=== PATIENT | male | born 1945 | race Caucasian/White ===

== ENCOUNTER → 2016-08-17 | Outpatient (CLI) | payer OTHER, MEDICARE ==
[~2016-08-17] MED LIST: ASPEC81 PO; CHOL100010 PO; FOLI1TAB7 PO; LEVO50TA6 PO; METO25TA56 PO; SIMV20TA2 PO
== END | disposition home or self-care (01) ==
LOC: C.PATHSPEC 11:53
PROVIDERS: ATTEND Dentist Endodontics
DX: K04.7 Periapical abscess without sinus (principal)

== ENCOUNTER 2023-07-20 11:38 | Inpatient (IN) ==
[2023-07-20 12:09] LABS: Basophils # (auto) 0.07 K/uL (0.00-0.20); Basophils % (auto) 0.3 %; Eosinophils % (auto) 0.5 %; Hematocrit (blood only) 39.8 % (42.0-52.0); Hemoglobin 13.5 g/dl (14.0-18.0); Immature Granulocytes # (auto) 0.14 K/uL (0.01-0.20); Immature Granulocytes % (auto) 0.6 %; Lymphocytes # (auto) 2.26 K/uL (1.20-3.40); Lymphocytes % (auto) 10.4 %; Mean Corpuscular Hemoglobin 29.8 pg (25.0-34.0); Mean Corpuscular Hgb Conc 33.9 g/dL (32.0-36.0); Mean Corpuscular Volume 87.9 fL (80.0-100.0); Mean Platelet Volume 10.3 fL (9.4-12.4); Monocytes # (auto) 1.93 K/uL (0.11-0.59); Monocytes % (auto) 8.9 %; Neutrophils # (auto) 17.18 K/uL (1.40-6.50); Neutrophils % (auto) 79.3 %; Platelet Count 173 K/uL (130-400); RDW Coefficient of Variation 12.3 % (11.5-14.5); RDW Standard Deviation 39.9 fL (36.4-46.3); Red Blood Count 4.53 M/uL (4.70-6.10); White Blood Count 21.68 K/ul (4.8-10.8)
[2023-07-20] MEDS ORDERED: CEFEPIME 2,000 MG in SYRINGE 0 ML IV STA (12:25)
--- NOTE | 2023-07-20 12:28 | Emergency Department Note ---
History of Present Illness General Chief complaint: Urinary Symptoms Stated complaint: URINARY SYMPTOMS, REF BY DOC Time Seen by Provider: 07/20/23 12:10 Source: patient, family ( was at the bedside), RN notes reviewed and old records reviewed (Notes from a phone call from the primary care physician about sending the patient over here) Mode of arrival: ambulatory Limitations: no limitations History of Present Illness Maximum Pain Intensity: 3 This patient is a 78-year-old male who comes in after feeling weak and having urinary symptoms. 2 days ago he started with flulike symptoms fever and dysuria. He had frequency of urination with small amounts his started him on Azo yesterday said yesterday evening he was very weak and she was not sure if he get out of the bathtub he may have been a little confused as well. No fall or trauma no back pain no nausea vomiting diarrhea but he has not been drinking much because he just does not feel like it. No abdominal pain. No chest pain or shortness of breath. No blood or melena in his stool. Home Medications Medication Instructions Recorded Confirmed Type Aspirin Enteric Coated (Ecotrin Or 81 mg PO QAM ##0 12/13/09 07/20/23 History Generic *) Metoprolol Tartrate (Lopressor) 25 mg PO QPM ##0 12/13/09 07/20/23 History (Lopressor) CHOLECALCIFEROL (Vitamin D) 5,000 inter.unit PO QPM #0 tabs 04/22/15 07/20/23 History FOLIC ACID (FOLVITE) 1 tab PO QAM 90 days #90 tabs 04/22/15 07/20/23 History amlodipine 2.5 mg tablet 2.5 mg PO DAILY 07/20/23 07/20/23 History coenzyme Q10 75 mg capsule 75 mg PO DAILY 07/20/23 07/20/23 History famotidine 20 mg tablet 20 mg PO DAILY PRN Indigestion 07/20/23 07/20/23 History isosorbide mononitrate 60 mg 60 mg PO QAM 07/20/23 07/20/23 History tablet,extended release 24 hr levothyroxine 75 mcg tablet 75 mcg PO DAILY 07/20/23 07/20/23 History lisinopril 2.5 mg tablet 2.5 mg PO QAM 07/20/23 07/20/23 History metformin 500 mg tablet,extended 500 mg PO QAM 07/20/23 07/20/23 History release 24 hr metoprolol succinate 25 mg 12.5 mg PO QAM 07/20/23 07/20/23 History tablet,extended release 24 hr rosuvastatin 20 mg tablet 20 mg PO DAILY 07/20/23 07/20/23 History Allergies Allergy/AdvReac Type Severity Reaction Status Date / Time No Known Allergies Allergy Unverified 09/03/19 10:06 Past Med/Surg History Medical History Cancer of the skin, basal cell Diabetes Heart disease Surgical History History of coronary artery bypass graft [facility] 03/02/20 CABG X4 (LEE to LAD, [id number], AoLPL with reverse SVG) Family History Other Diabetes Lung cancer Stroke Social History Smoking Status: Never smoker Second Hand Exposure: No; Do You Dip or Chew Tobacco: No; Hx Alcohol Use: No Hx Substance Use: No Preferred Language: Kyrgyz Communication Ability: Effective Bookkeeper Required: No Beliefs That Will Affect Care: None marital status: Current Living Situation: Alone current occupational status: retired current occupation: Retired Other Information That Helps Us Care for You: No Feels Safe at Home: Yes Assistive Devices: None Review of Systems A total of 10 systems reviewed and were otherwise negative Physical Exam Vital Signs Vital Signs - 24 hr 07/20/23 11:43 07/20/23 14:32 07/20/23 15:05 Temperature 36.8 C Temperature Source Temporal Artery Scan Pulse Rate 110 H 77 Pulse Rate [Finger] 83 Respiratory Rate 18 16 Respiratory Effort / Characteristics Non-Labored Non-Labored Respiratory Depth Normal Normal Blood Pressure 103/68 Blood Pressure [Right Arm] 149/68 H Blood Pressure Mean 79 Blood Pressure Mean [Right Arm] 95 Pulse Oximetry 96 98 Oxygen Delivery Method Room Air Room Air Sepsis Recent Fever Within 48 Hours No Sepsis New/Unexplained Change in Mental Status No Sepsis Action Taken by Nursing No Action Required General: Well developed well nourished older male who appears in no acute distress, breathing comfortably on room air. Normal speech HEENT: Normal cephalic atraumatic. Pupils are equal round and reactive to light. Extraocular movements are intact. Oropharynx is pink with moist mucous membranes. No swelling of the mouth lips or tongue. Neck: Supple with a midline trachea. No meningeal signs or stiffness, no JVD or bruits. No Stridor. Chest: Clear to auscultation bilaterally. No wheezes or rhonchi. No increased work of breathing. Heart: Regular rate and rhythm without murmurs or gallops. Abdomen: Soft nontender, nondistended without rebound guarding or rigidity. Extremities: No cyanosis clubbing or edema. No calf tenderness or assymetry Spine/Back. Non tender to palpation. No CVA tenderness Skin: Good turgor without rashes. Neurologic exam: Cranial nerves two through 12 are intact. Motor and sensation are intact and symmetrical throughout. Course Administered Medications Sodium Chloride (Nss) 1,000 mls @ 125 mls/hr IV .Q8H MELY Stop: 07/20/23 23:49 Last Admin: 07/20/23 17:29 Dose: 125 mls/hr Documented By: LELA Insulin Aspart (Insulin Aspart Per Unit Charge) 0 units SC ACHS MELY Stop: 08/19/23 16:29 Last Admin: 07/20/23 18:05 Dose: Not Given Documented By: LELA Discontinued Medications Cefepime HCl (Cefepime 2,000 Mg/20 Ml Vial) Confirm Administered Dose 2,000 mg .ROUTE .STK-MED ONE Stop: 07/20/23 12:55 Last Admin: 07/20/23 13:19 Dose: Not Given Documented By: ISA Sodium Chloride (Nss) 1,000 mls @ 999 mls/hr IV .Q1H1M ONE Stop: 07/20/23 13:21 Last Infusion: 07/20/23 13:55 Dose: Infused Documented By: Admin: 07/20/23 12:55 Dose: 999 mls/hr Documented By: YAMILET Cefepime HCl (Maxipime) 20 mls @ 5 mls/min IV ONE ONE Stop: 07/20/23 13:03 Last Admin: 07/20/23 13:19 Dose: 5 mls/min Documented By: ISA Sodium Chloride (Nss) 1,000 mls @ 999 mls/hr IV .Q1H1M ONE Stop: 07/20/23 15:48 Last Infusion: 07/20/23 16:05 Dose: Infused Documented By: Admin: 07/20/23 15:04 Dose: 999 mls/hr Documented By: LELA Sodium Chloride (Nss) 250 mls @ 999 mls/hr IV .Q16M ONE Stop: 07/20/23 15:03 Last Admin: 07/20/23 17:00 Dose: Not Given Documented By: LELA Medical Decision Making Differential Diagnosis Urinary tract infection, kidney infection, prostatitis, sepsis, electrolyte or metabolic abnormality, cardiac disease Medical Records Attestation: I reviewed the patient's medical records. Home Medications Current Medication List: was personally reviewed by me Laboratory Data Attestation: I reviewed the patient's lab results. 07/20/23 11:55 07/20/23 11:55 Lab Results 07/20/23 07/20/23 07/20/23 Range/Units 11:55 13:40 13:50 WBC 21.68 H (4.8-10.8) K/ul RBC 4.53 L (4.70-6.10) M/uL Hgb 13.5 L (14.0-18.0) g/dl Hct 39.8 L (42.0-52.0) % MCV 87.9 (80.0-100.0) fL MCH 29.8 (25.0-34.0) pg MCHC 33.9 (32.0-36.0) g/dL RDW Std Deviation 39.9 (36.4-46.3) fL RDW Coeff of Dipak 12.3 (11.5-14.5) % Plt Count 173 (130-400) K/uL MPV 10.3 (9.4-12.4) fL Immature Gran % (Auto) 0.6 % Neut % (Auto) 79.3 % Lymph % (Auto) 10.4 % Carter % (Auto) 8.9 % Eos % (Auto) 0.5 % Baso % (Auto) 0.3 % Neut # (Auto) 17.18 H (1.40-6.50) K/uL Lymph # (Auto) 2.26 (1.20-3.40) K/uL Carter # (Auto) 1.93 H (0.11-0.59) K/uL Eos # (Auto) 0.10 (0.00-0.50) K/uL Baso # (Auto) 0.07 (0.00-0.20) K/uL Immature Gran # (Auto) 0.14 (0.01-0.20) K/uL Sodium 132 L (136-145) mmol/L Potassium 3.8 (3.5-5.1) mmol/L Chloride 101 (98-107) mmol/L Carbon Dioxide 22 (21-32) mmol/L Anion Gap 9 (3-11) BUN 21 (6-23) mg/dl Creatinine 1.28 (0.6-1.4) mg/dl Est Cr Clr Drug Dosing 48.3 ml/min Est GFR ( Amer) 62.2 ml/min Est GFR (Non-Af Amer) 53.6 ml/min BUN/Creatinine Ratio 16.4 (10-20) Glucose 222 H (70-99(Fasting)) mg/dl Lactate (0.4-2.0) mmol/L Calcium 9.2 (8.6-10.3) mg/dl Total Bilirubin 0.9 (0.2-1.0) mg/dl AST 16 (13-39) U/L ALT 16 (7-52) U/L Alkaline Phosphatase 55 (34-104) U/L Troponin I High Sens 8.6 (0-20) pg/ml Total Protein 7.8 (6.0-8.3) gm/dl Albumin 4.2 (3.4-5.0) gm/dl Globulin 3.6 (2.5-4.0) gm/dl Albumin/Globulin Ratio 1.2 (0.9-2) Procalcitonin 0.17 (0-0.5) ng/ml Urine Color Dark Yellow Urine Appearance Cloudy A (Clear) Urine pH 5.5 (4.5-7.5) Ur Specific [place] 1.027 (1.000-1.030) Urine Protein 2+ H (Negative) Urine Glucose (UA) Negative (Negative) Urine Ketones Trace H (Negative) Urine Blood 2+ H (Negative) Urine Nitrite Positive A (Negative) Urine Bilirubin Negative (Negative) Urine Urobilinogen Negative (Negative) Ur Leukocyte Esterase 2+ H (Negative) Urine WBC (Auto) >50 H (0-5) /hpf Urine RBC (Auto) 3-5 H (0-2) /hpf U Hyaline Cast (Auto) 3-5 H (0-2) /lpf U Epithel Cells (Auto) 0-2 (0-2) /hpf Urine Bacteria (Auto) 4+ H (None Seen) Urine Mucus Present A (None Prsent) Adenovirus (PCR) Not Detected (NotDetected) B. pertussis DNA (PCR) Not Detected (NotDetected) B.parapertussis DNA PCR Not Detected (NotDetected) C. pneumoniae DNA (PCR) Not Detected (NotDetected) Coronavirus OC43 (PCR) Not Detected (NotDetected) Coronavirus HKU1 (PCR) Not Detected (NotDetected) Coronavirus 229E (PCR) Not Detected (NotDetected) SARS-CoV-2 (PCR) Not Detected (NotDetected) Coronavirus NL63 (PCR) Not Detected (NotDetected) Human Metapneumovir PCR Not Detected (NotDetected) Influenza Type A (PCR) Not Detected (NotDetected) Influenza Type B (PCR) Not Detected (NotDetected) M. pneumoniae (PCR) Not Detected (NotDetected) Parainfluenza 1 (PCR) Not Detected (NotDetected) Parainfluenza 2 (PCR) Not Detected (NotDetected) Parainfluenza 3 (PCR) Not Detected (NotDetected) Parainfluenza 4 (PCR) Not Detected (NotDetected) RSV (PCR) Not Detected (NotDetected) Entero/Rhino (PCR) Not Detected (NotDetected) 07/20/23 Range/Units 14:15 WBC (4.8-10.8) K/ul RBC (4.70-6.10) M/uL Hgb (14.0-18.0) g/dl Hct (42.0-52.0) % MCV (80.0-100.0) fL MCH (25.0-34.0) pg MCHC (32.0-36.0) g/dL RDW Std Deviation (36.4-46.3) fL RDW Coeff of Dipak (11.5-14.5) % Plt Count (130-400) K/uL MPV (9.4-12.4) fL Immature Gran % (Auto) % Neut % (Auto) % Lymph % (Auto) % Carter % (Auto) % Eos % (Auto) % Baso % (Auto) % Neut # (Auto) (1.40-6.50) K/uL Lymph # (Auto) (1.20-3.40) K/uL [place] # (Auto) (0.11-0.59) K/uL Eos # (Auto) (0.00-0.50) K/uL Baso # (Auto) (0.00-0.20) K/uL Immature Gran # (Auto) (0.01-0.20) K/uL Sodium (136-145) mmol/L Potassium (3.5-5.1) mmol/L Chloride (98-107) mmol/L Carbon Dioxide (21-32) mmol/L Anion Gap (3-11) BUN (6-23) mg/dl Creatinine (0.6-1.4) mg/dl Est Cr Clr Drug Dosing ml/min Est GFR ( Amer) ml/min Est GFR (Non-Af Amer) ml/min BUN/Creatinine Ratio (10-20) Glucose (70-99(Fasting)) mg/dl Lactate 1.8 (0.4-2.0) mmol/L Calcium (8.6-10.3) mg/dl Total Bilirubin (0.2-1.0) mg/dl AST (13-39) U/L ALT (7-52) U/L Alkaline Phosphatase (34-104) U/L Troponin I High Sens (0-20) pg/ml Total Protein (6.0-8.3) gm/dl Albumin (3.4-5.0) gm/dl Globulin (2.5-4.0) gm/dl Albumin/Globulin Ratio (0.9-2) Procalcitonin (0-0.5) ng/ml Urine Color Urine Appearance (Clear) Urine pH (4.5-7.5) Ur Specific [place] (1.000-1.030) Urine Protein (Negative) Urine Glucose (UA) (Negative) Urine Ketones (Negative) Urine Blood (Negative) Urine Nitrite (Negative) Urine Bilirubin (Negative) Urine Urobilinogen (Negative) Ur Leukocyte Esterase (Negative) Urine WBC (Auto) (0-5) /hpf Urine RBC (Auto) (0-2) /hpf U Hyaline Cast (Auto) (0-2) /lpf U Epithel Cells (Auto) (0-2) /hpf Urine Bacteria (Auto) (None Seen) Urine Mucus (None Prsent) Adenovirus (PCR) (NotDetected) B. pertussis DNA (PCR) (NotDetected) B.parapertussis DNA PCR (NotDetected) C. pneumoniae DNA (PCR) (NotDetected) Coronavirus OC43 (PCR) (NotDetected) Coronavirus HKU1 (PCR) (NotDetected) Coronavirus 229E (PCR) (NotDetected) SARS-CoV-2 (PCR) (NotDetected) Coronavirus NL63 (PCR) (NotDetected) Human Metapneumovir PCR (NotDetected) Influenza Type A (PCR) (NotDetected) Influenza Type B (PCR) (NotDetected) M. pneumoniae (PCR) (NotDetected) Parainfluenza 1 (PCR) (NotDetected) Parainfluenza 2 (PCR) (NotDetected) Parainfluenza 3 (PCR) (NotDetected) Parainfluenza 4 (PCR) (NotDetected) RSV (PCR) (NotDetected) Entero/Rhino (PCR) (NotDetected) Imaging Data Attestation: I personally reviewed and interpreted this imaging study as follows: My Impression: Chest x-rayno acute infiltrate, failure, pneumothorax seen as per my independent interpretation Radiologist's Impression: Chest X-Ray 07/20/23 12:23 XR chest 2V PA/lateral HISTORY: 78 years-old Male fever COMPARISON: 12/13/2009 TECHNIQUE: PA and lateral views of the chest FINDINGS: Cardiomediastinal and hilar silhouettes are within normal limits. No pneumothorax, pleural effusion or airspace consolidation. The bones of the chest appear grossly intact. There are a few scattered subcentimeter calcified pulmonary granulomata. IMPRESSION: No acute process. ACT 112: Negative or not required by law. The above report was generated using voice recognition software. It may contain grammatical, syntax or spelling errors. Electronically signed by: Juan Freed M.D. 07/20/2023 12:51 PM ECG Data Attestation: I personally reviewed and interpreted this ECG as follows: Indication: + weakness Rate (beats per minute): 78 Rhythm: + normal sinus ECG Intervals/blocks: + Normal QRS, + Normal QT and + Normal ID ECG [place]: + Normal ECG ST segments: + Nonspecific ST abnormalities ECG Findings: no PACs or no PVCs Comparison ECG Date: from (12/13/2009) Change: no significant change MDM Narrative This patient comes in as described above. I did see him out in triage to help expedite his care. He had urinary symptoms and weakness he is afebrile here his vital signs look stable so far but I am worried about his history prior to evaluating him his blood work started to come back. he does have a white count of over 21,000. I did add blood cultures and lactic acid as well as further sepsis workup . I did order 1 L IV normal saline bolus to get fluids started as well as cefepime 2 g IV after consulting and discussing the case with Frank, our ED pharmacist. The patient has remained he medically dynamically stable I did order a second 1 L IV normal saline bolus as well as additional 250 cc IV normal saline bolus that would get the patient to 30/kg IV normal saline. His lactic acid was not elevated. Chest x-ray was unremarkable his bio fire was negative. He was hyperglycemic but had no evidence to suggest acute diabetic emergency. His urinalysis does suggest infection with a culture pending. Given the patient's significant elevated white count, weakness, concern for sepsis, I do think he needs to be admitted/observed for for further inpatient treatment and evaluation IV antibiotics and fluids. I do have discussed case at length with the [facility] hospitalist in consultation Continuous cardiac monitoring: An order was placed in EMR for continuous alkylation operator:Upon my evaluation, the patient noted to be in normal sinus rhythm rate of 85 Impression & Plan Sepsis, UTI (urinary tract infection), DM II (diabetes mellitus, type II), controlled, Hyperglycemia, Lab test negative for COVID-19 virus Discharge Plan Visit Data Chief Complaint: Urinary Symptoms Stated Complaint: URINARY SYMPTOMS, REF BY DOC ED Provider: Kavon Harrison Discharge Problem: Sepsis, UTI (urinary tract infection), DM II (diabetes mellitus, type II), controlled, Hyperglycemia, Lab test negative for COVID-19 virus Patient Disposition: Admitted As Inpatient Discharge Instructions Interventions: ED Discharge Assessment Last Done: 07/20/23 15:50 Discharge Problem: Sepsis Qualifiers: Sepsis type: sepsis due to unspecified organism Sepsis acute organ dysfunction status: unspecified Qualified Code(s): A41.9 - Sepsis, unspecified organism UTI (urinary tract infection) Qualifiers: Urinary tract infection type: site unspecified Hematuria presence: without hematuria Qualified Code(s): N39.0 - Urinary tract infection, site not specified DM II (diabetes mellitus, type II), controlled Qualifiers: Diabetes mellitus termite control representative insulin use: without termite control representative use Diabetes mellitus complication status: without complication Qualified Code(s): E11.9 - Type 2 diabetes mellitus without complications
[2023-07-20 12:34] LABS: Albumin Globulin Ratio 1.2 (0.9-2); Albumin Level 4.2 gm/dl (3.4-5.0); BUN Creatinine Ratio 16.4 (10-20); Bilirubin,Total 0.9 mg/dl (0.2-1.0); Calcium 9.2 mg/dl (8.6-10.3); Creatinine Clr Calc Pharmacy 48.3 ml/min; Est GFR (African American) 62.2 ml/min; Est GFR (Non-African American) 53.6 ml/min; Globulin 3.6 gm/dl (2.5-4.0); Potassium 3.8 mmol/L (3.5-5.1); Total Protein 7.8 gm/dl (6.0-8.3)
--- NOTE | 2023-07-20 12:52 | XRay Report ---
XR chest 2V PA/lateral HISTORY: 78 years-old Male fever COMPARISON: 12/13/2009 TECHNIQUE: PA and lateral views of the chest FINDINGS: Cardiomediastinal and hilar silhouettes are within normal limits. No pneumothorax, pleural effusion o r airspace consolidation. The bones of the chest appear grossly intact. There are a few scattered sub centimeter calcified pulmonary granulomata. IMPRESSION: No acute process. ACT 112: Negative or not required by law. The above report was generated using voice recognition software. It may contain grammatical, syntax o r spelling errors. Electronically signed by: Juan Freed M.D. 07/20/2023 12:51 PM
[2023-07-20] MEDS: SODIUM CHLORIDE 0.9% 1,000 ML IV ONE ×2 (12:55→15:04)
[2023-07-20] MEDS: CEFEPIME 2,000 MG/20 ML VIAL ONE (13:19)
[2023-07-20] MEDS: CEFEPIME 20 ML IV ONE (13:19)
[2023-07-20 13:50] LABS: Troponin I High Sensitivity 8.6 pg/ml (0-20)
[2023-07-20 14:44] LABS: Appearance Urine Cloudy (Clear); Bacteria Urine Automated 4+ (None Seen); Bilirubin Urine Negative (Negative); Blood Urine 2+ (Negative); Color Urine Dark Yellow; Epithelial Cell Urine Auto 0-2 /hpf (0-2); Glucose Urine UA Negative (Negative); Ketones Urine Trace (Negative); Leukocyte Esterase Urine 2+ (Negative); Nitrite Urine Positive (Negative); Protein Urine 2+ (Negative); Specific Gravity Urine 1.027 (1.000-1.030); Urobilinogen Urine Negative (Negative); WBC Urine Automated >50 /hpf (0-5); pH Urine 5.5 (4.5-7.5)
--- NOTE | 2023-07-20 14:47 | History & Physical Report ---
Date of Service July 20, 2023 Assessment & Plan (1) Sepsis: (2) UTI (urinary tract infection): (3) Leukocytosis: Plan: -Admit to med telemetry -UA appears to be grossly infected with positive leukocytes, nitrate, esterase, urine wbc >50 -Leukocytosis with WBC of 20 K, lactate normal -RVP negative, CXR negative -IV fluids started in the ER, continue 30 mg/kg dosing for sepsis, BP is hypertensive likely due to missed medications this morning, not hypotensive at this time. monitor. -Started on IV cefepime, will continue and downgrade as cultures are available -Follow urine and blood cultures -If not improving then would obtain CT abd/pelvis (4) CAD (coronary artery disease): Plan: -Hx of such -hx remote apical myocardial infarction in 2000, had coronary bypass grafting x 4 March 02, 2020, repeat cardiac cath on June 09, 2020 with patent grafts -Follows with cardiology, Dr. Vaughn as an outpatient -Metoprolol succinate 12.5 mg a.m., 25 mg p.m. at most recent outpatient visit i n June 12, 2023 -Continue baby aspirin, rosuvastatin, isosorbide mononitrate, metoprolol. Hold amlodipine and lisinopril for now. Will monitor BP throughout day. Receiving fluids now. BP is slightly elevated at 149/68 and he missed all morning medications today. -Last echo is from 05/24/2020 showing LVEF of 55% (5) DM II (diabetes mellitus, type II), controlled: Plan: - A1C 6.6, no need to recheck at this time -[facility] -Hold metformin (6) Hypothyroidism: Plan: -Chronic, stable - May continue levothyroxine 75 mcg daily DVT ppx: teds, scds Lines: PIV x 1 FEN/GI: Allow HH/DM diet CODE: Full code Dispo: From home, likely to remain in the hospital x 1-2 days A total of 75 minutes were spent with greater than 50% of that time face to face with the patient, personally reviewing all current laboratories, imaging studies, past medication reconciliation, outpatient chart review, and discussion with specialists to collaborate care for the patient with attending. Please see attending documentation for corrections and/or additions. History of Present Illness Chief Complaint: Urinary symptoms Primary Care Provider: Misti Mora, DO This is a 78-year-old male with PMHx of CAD, HTN, HLD, DM II, hx of Hashimotos disease, CKD stage 3, hypothyroidism, former smoker who presents to the hospital with acute urinary complaints including foul-smelling urine, increased frequency, dysuria fever x 2 days and weakness x 2 days. He is found to have a white count of 21,000, UA appears to be grossly infected. Patient was started on IV cefepime and fluids in the ER. The patient's significant other, Keke, is present at bedside and supports the history. He believes that he developed symptoms 3 days ago which started with a bout of diarrhea x 3 episodes, then noticed that he was having increased urinary frequency, dysuria and foul-smelling urine which has progressively worsened in the past 3 days. He admits to having a low-grade fever of 99.8 and has not taken any Tylenol or other fever reducing medications. He denies any abdominal pain. Patient does feel generalized weakness which was worse this morning, causing him to have difficulty walking at home. Denies any falls or injuries sustained. He has never had a urinary tract infection before. Patient notes that he does not drink a lot of water, drinks a small glass of soda and 2 cups of coffee per day. He was instructed previously by his PCP that he needed to increase his fluid intake. He denies any dizziness, lightheadedness, chest pain, palpitations or shortness of breath. He did miss all of his morning medications today as his appetite has been diminished. Denies any nausea or vomiting. Allergies Allergy/AdvReac Type Severity Reaction Status Date / Time No Known Allergies Allergy Unverified 09/03/19 10:06 Home Medications Medication Instructions Recorded Confirmed Type Aspirin Enteric Coated (Ecotrin Or 81 mg PO QAM ##0 12/13/09 07/20/23 History Generic *) Metoprolol Tartrate (Lopressor) 25 mg PO QPM ##0 12/13/09 07/20/23 History (Lopressor) CHOLECALCIFEROL (Vitamin D) 5,000 inter.unit PO QPM #0 tabs 04/22/15 07/20/23 History FOLIC ACID (FOLVITE) 1 tab PO QAM 90 days #90 tabs 04/22/15 07/20/23 History amlodipine 2.5 mg tablet 2.5 mg PO DAILY 07/20/23 07/20/23 History coenzyme Q10 75 mg capsule 75 mg PO DAILY 07/20/23 07/20/23 History famotidine 20 mg tablet 20 mg PO DAILY PRN Indigestion 07/20/23 07/20/23 History isosorbide mononitrate 60 mg 60 mg PO QAM 07/20/23 07/20/23 History tablet,extended release 24 hr levothyroxine 75 mcg tablet 75 mcg PO DAILY 07/20/23 07/20/23 History lisinopril 2.5 mg tablet 2.5 mg PO QAM 07/20/23 07/20/23 History metformin 500 mg tablet,extended 500 mg PO QAM 07/20/23 07/20/23 History release 24 hr metoprolol succinate 25 mg 12.5 mg PO QAM 07/20/23 07/20/23 History tablet,extended release 24 hr rosuvastatin 20 mg tablet 20 mg PO DAILY 07/20/23 07/20/23 History Past Med/Surg History Medical History Cancer of the skin, basal cell Diabetes Heart disease Surgical History History of coronary artery bypass graft [facility] [place]02/20 CABG X4 (LEE to LAD, [id number], AoLPL with reverse SVG) Family History Other Diabetes Lung cancer Stroke Social History Smoking Status: Never smoker Second Hand Exposure: No; Do You Dip or Chew Tobacco: No; Hx Alcohol Use: No Hx Substance Use: No Preferred Language: Angolan Communication Ability: Effective Rating Officer Required: No Beliefs That Will Affect Care: None marital status: Current Living Situation: Alone current occupational status: retired current occupation: Retired Other Information That Helps Us Care for You: No Feels Safe at Home: Yes Assistive Devices: None Review of Systems Review of Systems: Constitutional: + Fever, chills, fatigue, and generalized weakness Eyes: No diplopia, no changes in vision ENT: No sore throat, tinnitus, or trouble swallowing Respiratory: No shortness of breath, No dyspnea at rest or on exertion, no cough or sputum Cardiovascular: No chest pain, palpitations, or flutter Abdomen: No pain, No constipation, No diarrhea, No nausea, No vomiting Musculoskeletal: No calf pain, No joint pain, No swelling Genitourinary : + Dysuria and urinary frequency, No hematuria Neurologic: No numbness/tingling, + weakness this morning causing difficulty with ambulation, at baseline does not have any difficulty with such, no sensory or motor deficits Psychiatric: No depression or anxiety symptoms Endocrine: No fatigue, No weight changes Integumentary: No itch, No rash Physical Exam Physical Exam: General: awake, alert, no apparent distress, elderly white male, + slightly tremulous Head: Normocephalic, atraumatic ENT: PERRL, EOMI, no pharyngeal exudate, + mucous membranes slightly dry Chest: Clear to auscultation, on room air, no adventitious breath sounds Cardiac: Regular rate and rhythm, heart rate in mid 80s, no murmur, no JVD, normal peripheral pulses, good capillary refill Abdominal: NABS x 4 quadrants, soft, nondistended, nontender to palpation, no rebound or guarding Extremities: Normal inspection, no peripheral edema or erythema, calfs nontender to palpation Psych: Normal mood and affect Neuro: AAO x 3, strength intact bilaterally and rated 5/5, no motor deficits, speech is clear, no peripheral sensory deficits Results & Data Results & Data Vital Signs (Past 12 Hours) Vital Signs Temp Pulse Resp BP Pulse Ox O2 Del Method 07/20/23 14:32 77 07/20/23 11:43 36.8 C 110 H 18 103/68 96 Room Air Laboratory Results 07/20/23 13:40 Urine Culture - Pending Urine,Clean Catch 07/20/23 14:37 Aerobic Blood Culture - Pending Blood Anaerobic Blood Culture - Pending 07/20/23 14:15 Aerobic Blood Culture - Pending Blood Anaerobic Blood Culture - Pending 07/20/23 07/20/23 07/20/23 14:15 13:50 13:40 WBC RBC Hgb Hct MCV MCH MCHC RDW Std Deviation RDW Coeff of Dipak Plt Count MPV Immature Gran % (Auto) Neut % (Auto) Lymph % (Auto) [place] % (Auto) Eos % (Auto) Baso % (Auto) Neut # (Auto) Lymph # (Auto) Rolette # (Auto) Eos # (Auto) Baso # (Auto) Immature Gran # (Auto) Sodium Potassium Chloride Carbon Dioxide Anion Gap BUN Creatinine Est Cr Clr Drug Dosing Est GFR ( Amer) Est GFR (Non-Af Amer) BUN/Creatinine Ratio Glucose Lactate 1.8 Calcium Total Bilirubin AST ALT Alkaline Phosphatase Troponin I High Sens Total Protein Albumin Globulin Albumin/Globulin Ratio Procalcitonin Urine Color Dark Yellow Urine Appearance Cloudy A Urine pH 5.5 Ur Specific [place] 1.027 Urine Protein 2+ H Urine Glucose (UA) Negative Urine Ketones Trace H Urine Blood 2+ H Urine Nitrite Positive A Urine Bilirubin Negative Urine Urobilinogen Negative Ur Leukocyte Esterase 2+ H Urine WBC (Auto) >50 H Urine RBC (Auto) 3-5 H U Hyaline Cast (Auto) 3-5 H U Epithel Cells (Auto) 0-2 Urine Bacteria (Auto) 4+ H Urine Mucus Present A Adenovirus (PCR) Not Detected B. pertussis DNA (PCR) Not Detected B.parapertussis DNA PCR Not Detected C. pneumoniae DNA (PCR) Not Detected Coronavirus OC43 (PCR) Not Detected Coronavirus HKU1 (PCR) Not Detected Coronavirus 229E (PCR) Not Detected SARS-CoV-2 (PCR) Not Detected Coronavirus NL63 (PCR) Not Detected Human Metapneumovir PCR Not Detected Influenza Type A (PCR) Not Detected Influenza Type B (PCR) Not Detected M. pneumoniae (PCR) Not Detected Parainfluenza 1 (PCR) Not Detected Parainfluenza 2 (PCR) Not Detected Parainfluenza 3 (PCR) Not Detected Parainfluenza 4 (PCR) Not Detected RSV (PCR) Not Detected Entero/Rhino (PCR) Not Detected 07/20/23 11:55 WBC 21.68 H RBC 4.53 L Hgb 13.5 L Hct 39.8 L MCV 87.9 MCH 29.8 MCHC 33.9 RDW Std Deviation 39.9 RDW Coeff of Dipak 12.3 Plt Count 173 MPV 10.3 Immature Gran % (Auto) 0.6 Neut % (Auto) 79.3 Lymph % (Auto) 10.4 Ro[place] % (Auto) 8.9 Eos % (Auto) 0.5 Baso % (Auto) 0.3 Neut # (Auto) 17.18 H Lymph # (Auto) 2.26 Rolette # (Auto) 1.93 H Eos # (Auto) 0.10 Baso # (Auto) 0.07 Immature Gran # (Auto) 0.14 Sodium 132 L Potassium 3.8 Chloride 101 Carbon Dioxide 22 Anion Gap 9 BUN 21 Creatinine 1.28 Est Cr Clr Drug Dosing 48.3 Est GFR ( Amer) 62.2 Est GFR (Non-Af Amer) 53.6 BUN/Creatinine Ratio 16.4 Glucose 222 H Lactate Calcium 9.2 Total Bilirubin 0.9 AST 16 ALT 16 Alkaline Phosphatase 55 Troponin I High Sens 8.6 Total Protein 7.8 Albumin 4.2 Globulin 3.6 Albumin/Globulin Ratio 1.2 Procalcitonin 0.17 Urine Color Urine Appearance Urine pH Ur Specific [place] Urine Protein Urine Glucose (UA) Urine Ketones Urine Blood Urine Nitrite Urine Bilirubin Urine Urobilinogen Ur Leukocyte Esterase Urine WBC (Auto) Urine RBC (Auto) U Hyaline Cast (Auto) U Epithel Cells (Auto) Urine Bacteria (Auto) Urine Mucus Adenovirus (PCR) B. pertussis DNA (PCR) B.parapertussis DNA PCR C. pneumoniae DNA (PCR) Coronavirus OC43 (PCR) Coronavirus HKU1 (PCR) Coronavirus 229E (PCR) SARS-CoV-2 (PCR) Coronavirus NL63 (PCR) Human Metapneumovir PCR Influenza Type A (PCR) Influenza Type B (PCR) M. pneumoniae (PCR) Parainfluenza 1 (PCR) Parainfluenza 2 (PCR) Parainfluenza 3 (PCR) Parainfluenza 4 (PCR) RSV (PCR) Entero/Rhino (PCR) Diagnostic Findings Chest X-Ray 07/20/23 12:23 XR chest 2V PA/lateral HISTORY: 78 years-old Male fever COMPARISON: 12/13/2009 TECHNIQUE: PA and lateral views of the chest FINDINGS: Cardiomediastinal and hilar silhouettes are within normal limits. No pneumothorax, pleural effusion or airspace consolidation. The bones of the chest appear grossly intact. There are a few scattered subcentimeter calcified pulmonary granulomata. IMPRESSION: No acute process. ACT 112: Negative or not required by law. The above report was generated using voice recognition software. It may contain grammatical, syntax or spelling errors. Electronically signed by: Juan Freed M.D. 07/20/2023 12:51 PM Code Status & VTE Plan Code Status Full code -discussed with the patient at bedside Supervising Physician Co-Signing Physician Notes I have seen and examined the patient and have discussed the case with the provider above. I have reviewed the advanced practitioner's documentation, and I agree with, and take responsibility for that plan of care. 78 yo M with UTI causing septic picture. Has been sick for a few days with worsening weakness and now with shaking chills. Afebrile on exam, no CVA TTP and no abdominal pain or distension is present. Hemodynamics are improving after fluid resuscitation efforts in the Er. Lungs CTAB, CV exam WNL /rectal exam: deferred. Labs/Imaging/MEds reviewed. Sepsis 2/2 acute UTI: Cont IV antibiotics pending culture results and clinical improvement. Uncertain etiology, denies symptoms of BPH, but may have underlying prostatitis. Would recommend monitoring closely as outpatient in the next two weeks for lack of response to antimicrobial therapy, which may prompt further evaluation for prostatitis. DO Enrico
[2023-07-20 14:55] LABS: Mucus Urine Present (None Prsent)
--- NOTE | 2023-07-20 14:58 | Electrocardiogram Report ---
Test Reason : Blood Pressure : / mmHG Vent. Rate : 078 BPM Atrial Rate : 078 BPM P-R Int : 168 ms QRS Dur : 086 ms QT Int : 378 ms P-R-T Axes : 057 062 085 degrees QTc Int : 430 ms Normal sinus rhythm Nonspecific ST and T wave abnormality Abnormal ECG When compared with ECG of 13-DEC-2009 20:00, No significant change was found Confirmed by Mauricio Brian ([id number]) on 07/20/2023 2:58:29 PM Referred By: Misti Mora Confirmed By:Mauricio Brian
[2023-07-20 15:12] LABS: Adenovirus PCR Not Detected (NotDetected); Bordetella parapertussis PCR Not Detected (NotDetected); Bordetella pertussis PCR Not Detected (NotDetected); Chlamydia pneumoniae PCR Not Detected (NotDetected); Coronavirus 229E PCR Not Detected (NotDetected); Coronavirus CoV-2 (COVID19)PCR Not Detected (NotDetected); Coronavirus HKU1 PCR Not Detected (NotDetected); Coronavirus NL63 PCR Not Detected (NotDetected); Coronavirus OC43PCR Not Detected (NotDetected); Human Metapneumovirus PCR Not Detected (NotDetected); Influenza A PCR Not Detected (NotDetected); Influenza B PCR Not Detected (NotDetected); Mycoplasma pneumoniae PCR Not Detected (NotDetected); Parainfluenza Virus 1 PCR Not Detected (NotDetected); Parainfluenza Virus 2 PCR Not Detected (NotDetected); Parainfluenza Virus 3 PCR Not Detected (NotDetected); Parainfluenza Virus 4 PCR Not Detected (NotDetected); Respiratory Syncytial VirusPCR Not Detected (NotDetected); Rhinovirus/Enterovirus PCR Not Detected (NotDetected)
[2023-07-20] MEDS ORDERED: GLUCOSE 10 TAB/TUBE PO PRN (15:50)
[2023-07-20] MEDS ORDERED: GLUCAGON FOR INJ 1 MG VIAL SQ PRN (15:50)
[2023-07-20] MEDS ORDERED: DEXTROSE 50% 50 ML SYRINGE IV PRN (15:50)
[2023-07-20] MEDS ORDERED: ONDANSETRON INJ 2 MG/ML 2 ML VIAL IV PRN (15:50)
[2023-07-20] MEDS ORDERED: CARBOHYDRATES FOR HYPOGLYCEMIA PO PRN (15:50)
[2023-07-20] MEDS ORDERED: GLUCOSE 40% GEL 15 GM TUBE PO PRN (15:50)
[2023-07-20] MEDS: SODIUM CHLORIDE 0.9% 250 ML IV ONE (17:00)
[2023-07-20] MEDS: SODIUM CHLORIDE 0.9% 1,000 ML IV SCH (17:29)
[2023-07-20] MEDS: INSULIN ASPART PER UNIT CHARGE SC SCH (18:05)
[2023-07-20] MEDS: ACETAMINOPHEN 325 MG TAB PO PRN (22:48)
[2023-07-20] MEDS: METOPROLOL SUCC 25MG EXT REL TAB PO SCH (22:49)
[2023-07-21] MEDS: CEFEPIME 2,000 MG in SYRINGE 0 ML IV SCH (01:36)
[2023-07-21] MEDS: LEVOTHYROXINE SODIUM 75 MCG TABLET PO SCH (06:04)
[2023-07-21 07:01] LABS: BUN Creatinine Ratio 14.7 (10-20); Calcium 8.2 mg/dl (8.6-10.3); Creatinine Clr Calc Pharmacy 56.8 ml/min; Est GFR (African American) 75.5 ml/min; Est GFR (Non-African American) 65.1 ml/min
[2023-07-21 07:33] LABS: Hematocrit (blood only) 36.1 % (42.0-52.0); Hemoglobin 12.1 g/dl (14.0-18.0); Mean Corpuscular Hgb Conc 33.5 g/dL (32.0-36.0); Mean Corpuscular Volume 89.4 fL (80.0-100.0); Mean Platelet Volume 10.5 fL (9.4-12.4); Platelet Count 145 K/uL (130-400); RDW Coefficient of Variation 11.9 % (11.5-14.5); RDW Standard Deviation 38.9 fL (36.4-46.3); Red Blood Count 4.04 M/uL (4.70-6.10); White Blood Count 9.51 K/ul (4.8-10.8)
[2023-07-21] MEDS: ROSUVASTATIN CALCIUM 20 MG TAB PO SCH (08:09)
[2023-07-21] MEDS: ASPIRIN 81 MG ECTAB PO SCH (08:09)
[2023-07-21] MEDS: ISOSORBIDE MONO EXTENDED REL 60 MG TABCR PO SCH (08:09)
[2023-07-21] MEDS: METOPROLOL SUCC 25MG EXT REL TAB PO SCH (09:48)
--- NOTE | 2023-07-21 11:25 | Hospitalist Progress Note ---
Date of Service July 21, 2023 Assessment & Plan (1) Sepsis: (2) UTI (urinary tract infection): (3) Leukocytosis: Plan: -Patient presented to the hospital with burning sensation while urination and generalized weakness. -Leukocytosis present on admission -Urine appears infected -RVP negative, -Chest x-ray personally reviewed; no acute finding. Continue on empiric antibiotic for the time being. Await urine and blood culture Obtain renal ultrasound to rule out any obstruction resulting in UTI Encourage oral hydration (4) CAD (coronary artery disease): Plan: -Hx of such -hx remote apical myocardial infarction in 2000, had coronary bypass grafting x 4 March 02, 2020, repeat cardiac cath on June 09, 2020 with patent grafts -Follows with cardiology, Dr. Vaughn as an outpatient -Metoprolol succinate 12.5 mg a.m., 25 mg p.m. at most recent outpatient visit in June 12, 2023 -Continue baby aspirin, rosuvastatin, isosorbide mononitrate, metoprolol. -Last echo is from 05/24/2020 showing LVEF of 55% (5) DM II (diabetes mellitus, type II), controlled: Plan: - A1C 6.6, no need to recheck at this time -ISS with Accu-Cheks ACHS -Hold metformin (6) Hypothyroidism: Plan: -Chronic, stable - May continue levothyroxine 75 mcg daily DVT ppx: teds, scds Lines: PIV x 1 FEN/GI: Allow HH/DM diet CODE: Full code Dispo: From home, hospitalized for complicated UTI. Continue empiric antibiotics; awaiting urine and blood culture results. Renal ultrasound pending Time spent evaluating patient, direct bedside care, chart review, placing orders, interpretation of diagnostic studies, discussion with consultants, patient, and family members, as well as other required patient management activities is 50-minute Please note the above document was generated using voice recognition software. It may contain grammatical, syntax or spelling errors. Any formal questions or concerns about the content, text or information contained within the body of this dictation should be directly addressed to the provider for clarification Admission and Anticipated Discharge Date Admission Date: July 20, 2023 Subjective Patient seen and examined at bedside. Reports that the burning sensation has improved compared to yesterday. He reports that his energy is better as well Review of Systems Review of Systems: All systems reviewed & are unremarkable except as noted in Subjective Physical Exam Physical Exam: Constitutional: WD/WN, vitals as above, NAD, sitting up in bed, pleasant, conversing easily Respiratory: normal respiratory effort, lungs clear to auscultation, no wheeze, rales, rhonchi. Normal insp/exp effort, no accessory muscle use Cardiovascular: RRR, no murmur, no edema Vessels: no JVD or carotid bruit Chest: normal inspection of chest Abdomen: normal bowel sounds, soft, nontender, no hepatosplenomegaly Musculoskeletal: no cyanosis or clubbing, extremities motor strength 5/5 Skin: no rashes, warm and dry normal turgor Neurologic: PERRL, EOMI, accommodation nl, no face palsy, no dysarthria CN's II- XI intact bilaterally and moves all extremities Psychiatric: A+Ox3, euthymic affect Results & Data Results & Data Vital Signs (Past 12 Hours) Vital Signs Temp Pulse Pulse Resp BP Pulse Ox O2 Del Method 07/21/23 08:15 Room Air 07/21/23 07:49 36.5 C 73 16 148/72 H 96 Room Air 07/21/23 07:10 71 07/21/23 03:51 36.5 C 79 16 141/63 H 95 Room Air (1) Sepsis Sepsis acute organ dysfunction status: unspecified Sepsis type: sepsis due to unspecified organism Qualified Code(s): A41.9 - Sepsis, unspecified organism (2) UTI (urinary tract infection) Hematuria presence: without hematuria Urinary tract infection type: site unspecified Qualified Code(s): N39.0 - Urinary tract infection, site not specified (5) DM II (diabetes mellitus, type II), controlled Diabetes mellitus complication status: without complication Diabetes mellitus entry level insulin use: without correction use Qualified Code(s): E11.9 - Type 2 diabetes mellitus without complications
--- NOTE | 2023-07-21 11:35 | Ultrasound Report ---
RENAL ULTRASOUND CLINICAL HISTORY: UTI, rule out obstruction COMPARISON STUDY: None. TECHNIQUE: Sonography of the kidneys and the urinary bladder was performed. FINDINGS: The right kidney measures 9.7 x 5 x 5.3 cm and the left kidney measures 10.7 x 5.9 x 5.2 cm . There is no hydronephrosis. An 8 mm anechoic right lower pole lesion represents a cyst. No calculi are identified by sonography. There is moderate right renal cortical thinning. Bladder wall is mildly thickened and irregular. IMPRESSION: 1. No hydronephrosis. No renal calculi identified by sonography. 2. Moderate renal cortical thinning. 3. Irregular, thickened bladder wall. Although nonspecific, this is probably chronic and related to c hronic outlet obstruction. ACT 112: Negative or not required by law. Electronically signed by: Fabricio Montenegro M.D. 07/21/2023 11:34 AM
[2023-07-21] MEDS: HEPARIN SOD 5,000 UNIT/0.5 ML VIAL SQ SCH (13:22)
--- OUTSIDE RECORDS SUMMARY | 2023-07-21 15:15 | External Medical Summary | Summary of Care ---
Author Name Unknown Organization [facility] Address [address] [place] [address] Phone [phone] Care Team Providers Care Benefits Sales Consultant Name Role Phone Misti Mora DO Primary Care Provider Reason for Visit * Reason Comments Re-Check Encounter Details Date Type Department Care Team (Late st Contact Info) Description 05/17/2023 10:20 AM EST Office Visit [facility] [address] [facility] [place] [address] Misti Mora DO [address] [place] [address] Type 2 diabetes mellitus with stage 3a chronic kidney disease, without long-term current use of insulin (HCC)*; Stage 3a chronic kidney disease (HCC); Atherosclerosis of [place] coronary artery of [place] heart with stable angina pectoris (HCC); Atherosclerosis of [place] coronary artery of [place] heart without angina pectoris; Dyslipidemia, goal LDL below 70; History of tobacco abuse; HTN, goal below 140/90; Hx of actinic keratosis; Hx of nonmelanoma skin cancer; 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; Old MS (myocardial infarction); S/P CABG x 4; Sensorineural hearing loss (SNHL) of both ears; Wears hearing aid Allergies Active Allergy Reactions Criticality Noted Date Comments No Known Drug Allergy 01/07/2004 documented as of this encounter (statuses as of 05/25/2023) Medications Medication Sig Dispensed Refills Start Date End Date Status FOLIC ACID TABS 1 MG ORIndications:Coronar y atherosclerosis 1 TABLET DAILY 30 0 02/06/2001 Active ECOTRIN LOW STRENGTH 81 MG OR TBEC 1 TABLET DAILY 30 0 11/14/2001 Active ONETOUCH ULTRASOFT LANCETS MISCIndications:DM type 2, goal A1c below 7 Use twice daily for Type II diabetes 100 Box 5 02/09/2011 Active VITAMIN D3 5000 UNITS PO CAPSIndications:Vitam in D deficiency 1 CAPSULE DAILY-for vitamin D 30 Cap 11 02/17/2013 Active PREVIDENT 5000 BOOSTER PLUS 1.1 % paste APPLY A THIN RIBBON OF PREVIDENT TO BRUSH. BRUSH TEETH FOR 2 MINUTES DO NOT DRINK OR EAT 30MIN AFTER 3 01/18/2017 Active Cyanocobalamin (B-12) 1000 MCG Capsule Take 1 Capsule by mouth in the morning. 0 Active Turmeric 500 MG Oral Capsule Take 1 Capsule by mouth in the morning. 0 Active Co Q 10 10 MG Oral Capsule Take 1 Cap by mouth daily. 0 Active Famotidine 20 MG Oral Tablet (Pepcid)Indications:a s needed as needed Indications: as needed 30 Tab 1 06/29/2020 Active Lisinopril 2.5 MG Oral Tablet (Prinivil)Indications :HTN, goal below 140/90 TAKE 1 TABLET BY MOUTH EVERY DAY IN THE MORNING 90 Tablet 3 06/16/2022 Active Isosorbide Mononitrate ER 60 MG Oral Tablet Extended Release 24 Hour (Imdur) TAKE 1 TABLET BY MOUTH EVERY DAY IN THE MORNING 90 Tablet 3 06/16/2022 Active Nitroglycerin 0.4 MG Sublingual Tablet Sublingual (Nitrostat)Indication s:S/P CABG x 4,Coronary artery disease with history of myocardial infarction without history of CABG,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fl[place]re[place] artery of [place] heart with stable angina pectoris (HCC) PLACE 1 TALBET UNDER THE TONGUE EVERY 5 MINUTES NEEDED FOR CHEST PAIN. UP TO 3 DOSES IN 15 MINUTES 25 Tablet 11 06/16/2022 Active metFORMIN HCl ER 500 MG Oral Tablet Extended Release 24 Hour (Glucophage XR)Indications:Type 2 diabetes mellitus with hemoglobin A1c goal of less than 7.0% (HCC) TAKE 1 TABLET BY MOUTH EVERY DAY 90 Tablet 2 09/27/2022 Active OneTouch Ultra In Vitro Strip (Glucose Blood)Indications:Typ e 2 diabetes mellitus with hemoglobin A1c goal of less than 7.0% (HCC) USE TO TEST BLOOD SUGAR ONCE DAILY DIRECTED E11.9 100 Strip 3 11/20/2022 Active Metoprolol Succinate ER 25 MG Oral Tablet Extended Release 24 Hour (toPROL XL)Indications:Old MS (myocardial infarction),S/P CABG x 4,Coronary artery disease with history of myocardial infarction without history of CABG TAKE 1 TABLET BY MOUTH IN THE MORNING AND 1/2 IN THE EVENING 135 Tablet 3 12/28/2022 Active Levothyroxine Sodium 75 MCG Oral Tablet (Levoxyl) TAKE 1 TABLET BY MOUTH EVERY DAY AT LEAST 30 MIN BEFORE BREAKFAST OR OTHER MEDICATION 90 Tablet 1 01/18/2023 Active Rosuvastatin Calcium 20 MG Oral Tablet (Crestor)Indications: Dyslipidemia, goal LDL below 70,Old MS (myocardial infarction),S/P CABG x 4,Coronary artery disease with history of myocardial infarction without history of CABG TAKE 1 TABLET BY MOUTH EVERY DAY 90 Tablet 3 04/18/2023 Active amLODIPine Besylate 2.5 MG Oral Tablet (Norvasc)Indications: S/P CABG x 4,Coronary artery disease with history of myocardial infarction without history of CABG TAKE 1 TABLET BY MOUTH EVERY DAY 90 Tablet 3 04/18/2023 Active documented as of this encounter (statuses as of 05/25/2023) Active Problems Problem Noted Date Diagnosed Date Conductive hearing loss, bilateral 09/15/2021 Wears hearing aid 09/15/2021 Hx of actinic keratosis 12/15/2020 Hx of nonmelanoma skin cancer 12/15/2020 Stage 3a chronic kidney disease 09/15/2020 S/P CABG x 4 03/03/2020 Old MS (myocardial infarction) 04/12/2019 Atherosclerosis of [place] co ronary artery of flandreau heart with stable angina pectoris 04/11/2019 HTN, goal below 140/90 04/11/2019 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 Type 2 diabetes mellitus wit h stage 3a chronic kidney disease, without long-term current use of insulin 01/21/2009 Overview: Per Diabetes Taxonomy. ICD-10 update of inactive term CORONARY ATHEROSCLER. OF [place] CORONARY VESSEL documented as of this encounter (statuses as of 05/25/2023) Resolved Problems Problem Noted Date Diagnosed Date Resolved Date Unspecified severe protein-c alorie malnutrition 06/23/2021 09/15/2021 Prediabetes 10/04/2020 08/08/2022 Overview: Per Prediabetes protocol Postoperative anemia due to acute blood loss 0 06/15/2020 Paroxysmal atrial fibrillation 04/11/2019 05/06/2020 Type 2 diabetes mellitus wit h hemoglobin A1c goal of less than 7.0% 01/10/2008 01/21/2009 Overview: Per Diabetes Taxonomy. ICD-10 update of inactive term DM type 2, not at goal 07/14/200701/09 ADVANCE DIRECTIVE INFORMATION 08/30/2004 10/27/2016 Overview: Yes, Patient instructed to provide copy of advance directive for provider to review and to be scanned into Electronic Medical Record Other viral warts 10/22/2001 04/12/2019 Overview: ICD-10 update of inactive term PURE HYPERCHOLESTEROLEM 02/23 Overview: Per Lipid Taxonomy. documented as of this encounter (statuses as of 05/25/2023) Immunizations Name Administration Dates Next Due COVID-19 mRNA, LNP-s, No Pre serve, 2-Dose Series (Moderna) 05/25/2020,04/20/2020 COVID-19, MRNA-LNP, 23-24, P F, 50 MCG/0.5 mL, 12 YRS AND ABOVE, IM (MODERNA-Spikevax) 01/09/2023 COVID-19, mRNA, LNP-s, PF, B ooster, 100mcg/0.5mg (Moderna) 06/29/2021,01/17/2021 Covid-19, Mrna, Lnp-s, Pf, B ivalent, 50 Mcg, IM, 12 yrs and above (Moderna) 08/23/2022,12/07/2021 H1N1 2009 Influenza, IM 02/25/2009 Hepatitis B, 20+ yrs 06/30/2019,12/27/2018,11/29 Pneumococcal Conjugate Vacc, 13 Valent (Prevnar) 08/25/2014 Pneumococcal Polysaccharide PPV23 (Pneumovax) 06/15/2020,06/12/2011 Season Influenza, Quad, PF, Adjuvanted, 65+ Yrs, IM (FLUAD) 12/02/2019 Seasonal Influenza, PF, 6 M & above, IM , (FluLaval or Fluzone) 12/10/2018,12/25/2017,12/25/2016 Seasonal Influenza, Quadriva lent Hd (Fluzone Hd) 12/30/2022,12/29/2021,12/06/2020 Seasonal Influenza, Quadriva lent, No Preserve, IM 01/14/2016,01/05/2015 Seasonal Influenza, Split, I IV3, With Preserve, Inj 01/05/2014,01/01/2013,12/05/2011,01/03,12/21/2009,12/25/2008,01/10/2008 ,01/04/2007,01/05/2006 TD, Preservative Free 04/01/2018 TDAP (age 11 and older)(Adacel) 07/10/2008 Typhoid Vaccine Oral (Vivotif) 10/18/2018 Varicella Zoster Vaccine (Adult) 08/05/2009 Zoster Vaccine Recombinant (Shingrix) 01/23/2018 ,11/23/2017 documented as of this encounter Social History Tobacco Use Types Packs/Day Years Used Date Smoking Tobacco: Former Cigarettes 1.5 24 1 03/26/1963 - 01/25/1988 Smokeless Tobacco: Never Alcohol Use Standard Drinks/Week Comments Yes 0 (1 standard drink = 0.6 oz pur e alcohol) occasionally PHQ-2 Answer Date Recorded PHQ Adult Total Score 0 08/08/2022 Hunger Vital Sign Answer Date Recorded Within the past 12 months, y ou worried that your food would run out before you got the money to buy more. Never true 08/09/19 23 Within the past 12 months, t he food you bought just didn't last and you didn't have money to get more. Never true 08/08/2022 Sex and Gender Information Value Date Recorded Sex Assigned at Not on file Gender Identity Not on file Sexual Orientation Not on file Job Start Date Occupation Industry Not on file Not on file Not on file documented as of this encounter Last Filed Vital Signs Vital Sign Reading Time Taken Comments Blood Pressure 122/64 05/17/2023 10:23 AM EST Pulse 56 05/17/2023 10:23 AM EST Temperature 36.4 C (97.5 F) 05/17/2023 1 0:23 AM EST Respiratory Rate 16 05/17/2023 10:2 3 AM EST Oxygen Saturation 98% 05/17/2023 10: 23 AM EST Inhaled Oxygen Concentration - - Weight 74.8 kg (164 lb 12.8 oz) 024 10:23 AM EST Height - - Body Mass Index 24.34 11/21/2022 10:17 AM EDT documented in this encounter Functional Status Functional Status Response Date of Assess ment Are you deaf or do you have serious difficulty h earing? Yes 03/02/2020 Are you blind or do you have serious difficulty seeing, even when wearing glasses? No 03/02/2020 Do you have serious difficul ty walking or climbing stairs? (5 years old or older) No 03/02/2020 Do you have difficulty dress ing or bathing? (5 years old or older) No 03/02/2020 Because of a physical, menta l, or emotional condition, do you have difficulty doing errands alone such as visiting a doctor s office or shopping? (15 years old or older) No 03/02/20 20 Cognitive Status Response Date of Assessm ent Because of a physical, menta l, or emotional condition, do you have serious difficulty concentrating, remembering, or making decisions? (5 years old or older) No 03/02/2020 documented as of this encounter Patient Instructions * Patient Instructions* Misti Mora DO - 05/17/2023 10:57 AM EST Jhony Flores [id number] Benefits of Quitting Smoking Why should I quit smoking? Smoking is bad for you and bad for others around you. Smoking causes cancer, heart attacks, hardening of the arteries, bronchitis, emphysema, cough, shortness of breath, wrinkles, and premature aging. It stains teeth and fingers, irritates the eyes, furs the tongue, and causes bad breath. People are living longer today than their parents did, so it makes sense to work on staying healthy and independent. One of the best ways to do this is to quit smoking. Benefits of quitting smoking It takes time to reverse many years' worth of smoking damage to your body, but some benefits of quitting smoking begin immediately. For example, you're financially better off on day one. Your health starts to improve right away, too, because you remove a former constant source of irritation from your lungs. People may comment that you no longer cough. Your blood circulation is likely to improve, so your hands and feet may feel warmer. Your teeth, breath, and fingers are no longer a turn-off. Benefits that you're less aware of also begin to occur. These include better resistance to colds and respiratory infections, less likelihood of major heart and circulation problems, less risk of high blood pressure or stroke, and less risk of developing cancer. The following arguments are often presented by smokers as justifications for their continuing to smoke: "I have to sometime, so I might as well enjoy life until then." True, but as a smoker you're much more likely to of a heart attack or cancer - neither of whichare very pleasant ways to go. "I'm only hurting myself." True, if you don't count the heartache and grief you may cause your loved ones by your early or permanent disability, or the damage of your smoke to others. "Lots of people who smoke live to ripe old ages in perfect health." True, but this is rare. Nearly all smokers have significant health problems. "Smoking is one of my pleasures. I don't want to quit." Smoking is associated with pleasure because the nicotine in tobacco is an addictive drug. Your bodywill continue to crave a regular supply until you can overcome the habit. Smoking is always a disadvantage to your health and that of your loved ones. "It's my choice and I choose to smoke." True. It is your choice. In a survey of older former smokers, more than 90% quit on their own because they decided to do so. The main reasons they gave for quitting were wanting to stay healthy, following health care provider's advice, regaining control of their lives, and making a loved one happy . [place] Department of Health Quit Line [employer] Free Quitline [phone] QUIT NOW ( ) Your insurance company may also have more information and helpful programs to help you quit. Some may even help cover some of the costs. For example, [facility] members can call to find out about their smoking cessation program and medication coverage. Developed by Yohana Garcias MD, for [employer]. Published by [employer]. Last modified: 2005-08-04 Last reviewed: 2005-05-24 This content is reviewed periodically and is subject to change as new health information becomes available. The information is intended to inform and educate and is not a replacement for medical evaluation, advice, diagnosis or treatment by a healthcare professional. Adult Health Advisor 2005.4 Index Adult Health Advisor 2005.4 Credits Copyright 2006 [employer] and/or one of its subsidiaries. All Rights Reserved. documented in this encounter Progress Notes * Misti Mora DO - 05/17/2023 10:57 AM EST Subjective: Jhony Flores is a 78 year old male. Chief Complaint Patient presents with Re-Check HPI: Patient's past medical, surgical, family, and social history were reviewed. Medications, allergies, immunizations, and health care maintenance screenings were also reviewed. Would like CT lung cancer screen, smoked from age [age], about 22 years, x 2.5 packs per day=55 pack year history CAD- rarely uses SL NTG for occasional angina, usually with exertion, about once a month or two. Usually in cold weather Is generally active. Went on a hike in [place] to [place] 5 miles straight up at high altitude- no CP Since heart surgery, has to take a short nap everyday, about 20 min. Aches all over in the morning.Appetite low, but gets enough to eat. Diabetes Follow Up The patient is taking medications as instructed. No medication side effects are described. Compliance with Diet: good Compliance with exercise program: good The patient is not monitoring home blood pressures. The patient denies any acute focal neurologic symptoms. The patient reports no chest pain, no orthopnea, and no dyspnea on exertion. The patient denies intermittent claudication symptoms. Fasting home blood sugar readings: < 120 and The patient is not recording home blood sugars. Hypoglycemic symptoms: absent Visual changes: none Peripheral Neuropathy: none Patient is aware of possibility of myocardial infarction without any symptoms, and poor glycemic control will lead to poorer prognosis. Last Retinal Exam: within the last year PHM: Patient Active Problem List Diagnosis Code CORONARY ATHEROSCLER. 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 E03.8, E06.3 Old MS (myocardial infarction) I25.2 S/P CABG x 4 Z95.1 Stage 3a chronic kidney disease (HCC) N18.31 Hx of actinic keratosis Z87.2 Hx of nonmelanoma skin cancer Z85.828 Conductive hearing loss, bilateral H90.0 Wears hearing aid Z97.4 Outpatient Medications Prior to Visit Medication Sig Dispense Refill amLODIPine Besylate 2.5 MG Oral Tablet (Norvasc) TAKE 1 TABLET BY MOUTH EVERY DAY 90 Tablet 3 Rosuvastatin Calcium 20 MG Oral Tablet (Crestor) TAKE 1 TABLET BY MOUTH EVERY DAY 90 Tablet 3 Levothyroxine Sodium 75 MCG Oral Tablet (Levoxyl) TAKE 1 TABLET BY MOUTH EVERY DAY AT LEAST 30 MIN BEFORE BREAKFAST OR OTHER MEDICATION 90 Tablet 1 Metoprolol Succinate ER 25 MG Oral Tablet Extended Release 24 Hour (toPROL XL) TAKE 1 TABLET BY MOUTH IN THE MORNING AND 1/2 IN THE EVENING 135 Tablet 3 OneTouch Ultra In Vitro Strip (Glucose Blood) USE TO TEST BLOOD SUGAR ONCE DAILY DIRECTED E11.9 100 Strip 3 metFORMIN HCl ER 500 MG Oral Tablet Extended Release 24 Hour (Glucophage XR) TAKE 1 TABLET BY MOUTHEVERY DAY 90 Tablet 2 Isosorbide Mononitrate ER 60 MG Oral Tablet Extended Release 24 Hour (Imdur) TAKE 1 TABLET BY MOUTHEVERY DAY IN THE MORNING 90 Tablet 3 Lisinopril 2.5 MG Oral Tablet (Prinivil) TAKE 1 TABLET BY MOUTH EVERY DAY IN THE MORNING 90 Tablet 3 Nitroglycerin 0.4 MG Sublingual Tablet Sublingual (Nitrostat) PLACE 1 TALBET UNDER THE TONGUE EVERY5 MINUTES NEEDED FOR CHEST PAIN. UP TO 3 DOSES IN 15 MINUTES 25 Tablet 11 Famotidine 20 MG Oral Tablet (Pepcid) as needed Indications: as needed 30 Tab 1 Co Q 10 10 MG Oral Capsule Take 1 Cap by mouth daily. Cyanocobalamin (B-12) 1000 MCG Capsule Take 1 Capsule by mouth in the morning. Turmeric 500 MG Oral Capsule Take 1 Capsule by mouth in the morning. PREVIDENT 5000 BOOSTER PLUS 1.1 % paste APPLY A THIN RIBBON OF PREVIDENT TO BRUSH. BRUSH TEETH FOR 2 MINUTES DO NOT DRINK OR EAT 30MIN AFTER 3 VITAMIN D3 5000 UNITS PO CAPS 1 CAPSULE DAILY-for vitamin D 30 Cap 11 ONETOUCH ULTRASOFT LANCETS MISC Use twice daily for Type II diabetes 100 Box 5 ECOTRIN LOW STRENGTH 81 MG OR TBEC 1 TABLET DAILY 30 0 FOLIC ACID TABS 1 MG OR 1 TABLET DAILY 30 0 No facility-administered medications prior to visit. Last reviewed on 05/17/2023 10:23 AM by Kecia Higginbotham LPN Review of patient's allergies indicates: Allergen Reactions No Known Drug Allergy Objective: BP 122/64 | Pulse 56 | Temp 36.4 C (97.5 F) (Tympanic) | Resp 16 | Wt 74.8 kg (164 lb 12.8 oz) | SpO2 98% | BMI 24.34 kg/m | BSA 1.91 m Physical Exam: General: alert, healthy, and no distress Neck: supple, no adenopathy, no bruits, thyroid normal size, non-tender, without nodularity Heart: regular rate & rhythm, no murmur, and no gallops Lungs: chest symmetric with normal AP diameter, no chest deformities noted, no chest wall tenderness, lungs clear to auscultation Pulses: carotid=2/4 w/o bruits Extremities: less than 2 second capillary refill, no joint deformities, effusion, or inflammation Latest Reference Range & Units 09/13/20 08:03 03/15/21 11:23 03/22/21 08:10 06/23/21 00:00 06/23/21 11:31 06/24/21 09:30 09/15/21 08:29 04/13/22 09:09 04/13/22 09:10 08/15/22 07:45 09/22/22 12: 13:45 05/15/23 07:44 pH, Urine 5.0 - 7.5 units 5.5 Bilirubin, Urine Negative Negative Triglycerides <=174 mg/dL 180 (H) 142 196 (H) 177 (H) Cholesterol <200 mg/dL 110 105 115 107 Non-HDL Cholesterol <=159 mg/dL 69 64 69 63 HDL Cholesterol >39 mg/dL 41 41 46 44 LDL Cholesterol <=129 mg/dL 36 LDL Cholesterol (Direct Measure) <=129 mg/dL 41 44 40 Sodium 135 - 146 mmol/L 141 139 138 141 136 Potassium 3.5 - 5.1 mmol/L 5.1 4.7 4.7 4.5 4.9 Chloride 98 - 107 mmol/L 106 104 104 105 100 CO2 22 - 32 mmol/L 25 23 24 23 24 BUN 6 - 20 mg/dL 17 17 16 15 17 Creatinine 0.6 - 1.2 mg/dL 1.3 (H) 1.2 1.2 1.2 1.3 (H) Estimated Glomerular Filtration Rate >=60 mL/min 53.8 (L) 61 65 62 59 (L) Anion Gap 7 - 15 mmol/L 10 12 10 13 12 Glucose 70 - 120 mg/dL 114 113 117 123 (H) 125 (H) Calcium 8.4 - 10.2 mg/dL 10.0 9.6 9.9 9.8 10.2 Phosphorus 2.5 - 4.8 mg/dL 3.7 4.4 Protein 6.0 - 8.3 g/dL 7.4 7.5 Estimated Average Glucose <126 mg/dL 137 (H) 137 (H) 131 (H) 146 (H) 143 (H) 143 (H) Glucose Meter 70 - 120 mg/dL 97 Hemoglobin A1C 4.0 - 5.6 % 6.4 (H) 6.4 (H) 6.2 (H) 6.7 (H) 6.6 (H) 6.6 (H) TSH 0.27 - 4.20 uIU/mL 1.61 1.70 1.00 2.05 TSH WITH FREE T4 IF INDICATED Rpt Rpt Rpt Rpt HGB 14.0 - 16.8 g/dL 13.9 (L) 13.8 (L) Vitamin B12 232 - 1,245 pg/mL 1,181 974 SARS-CoV-2 (COVID-19) Result Negative Negative SARS-COV-2 (COVID-19), NAAT Rpt Albumin 3.8 - 5.0 g/dL 4.5 4.8 AST 10 - 50 U/L 19 20 24 ALT 10 - 50 U/L 20 20 Alkaline Phosphatase 35 - 130 U/L 62 73 Bilirubin, Total <=1.2 mg/dL 0.4 0.4 PSA <4.10 ng/mL 0.26 SURGICAL PATHOLOGY Rpt Color, Urine Yellow or Light Yellow Yellow Blood, Urine Negative Negative Clarity, Urine Clear Clear Glucose, Urine Negative mg/dL Negative Specific Opal, Urine 1.003 - 1.030 1.015 Protein, Urine Negative mg/dL Negative Urobilinogen, Urine 0.2 - 1.0 mg/dL 1.0 Nitrite, Urine Negative Negative Albumin / Creatinine Ratio, Urine <30 mg/g Creat 12 8 Protein/ Creatinine Ratio, Urine <150 mg/g 66 Albumin, Random Urine mg/dL 1.52 1.57 Protein, Random Urine mg/dL 9 Creatinine, Random Urine mg/dL 125 200 137 Recent Labs: Lab Results Component Value Date/Time HEMOGLOBIN A1C - [facility] 6.6 (H) 05/15/2023 07:44 AM HEMOGLOBIN A1C - [facility] 6.6 (H) 08/15/2022 07:45 AM HEMOGLOBIN A1C - [facility] 6.7 (H) 04/13/2022 09:09 AM HEMOGLOBIN A1C - [facility] 6.5 (H) 02/26/2020 01:04 PM HEMOGLOBIN A1C - [facility] 6.6 (H) 10/09/2019 07:45 AM HEMOGLOBIN A1C - [facility] 6.6 (H) 04/11/2019 07:57 AM HEMOGLOBIN I-STAT POCT - [facility] 8.2 (L) 03/02/2020 10:49 AM HEMOGLOBIN I-STAT POCT - [facility] 7.8 (L) 03/02/2020 10:30 AM HEMOGLOBIN I-STAT POCT - [facility] 6.8 (L) 03/02/2020 09:34 AM HEMOGLOBIN, WHOLE BLOOD - [facility] 10.4 (L) 03/02/2020 05:50 PM HEMOGLOBIN, WHOLE BLOOD - [facility] 10.4 (L) 03/02/2020 02:15 PM HEMOGLOBIN, WHOLE BLOOD - [facility] 11.4 (L) 03/02/2020 01:00 PM Lab Results Component Value Date/Time CREATININE - [facility] 1.3 (H) 05/15/2023 07:44 AM CREATININE - [facility] 1.2 04/13/2022 09:09 AM CREATININE - [facility] 1.2 09/15/2021 08:29 AM CREATININE - [facility] 1.4 (H) 04/07/2020 08:30 AM CREATININE - [facility] 1.4 (H) 03/24/2020 01:20 PM CREATININE - [facility] 1.7 (H) 03/15/2020 04:49 PM CREATININE, RANDOM URINE - [facility] 137 05/15/2023 07:44 AM CREATININE, RANDOM URINE - [facility] 200 04/13/2022 09:10 AM CREATININE, RANDOM URINE - [facility] 125 06/23/2021 11:31 AM CREATININE, RANDOM URINE - [facility] 109 04/01/2018 09:00 AM CREATININE, RANDOM URINE - [facility] 76 10/27/2016 09:19 AM CREATININE, RANDOM URINE - [facility] 242 08/03/2015 08:40 AM ASSESSMENT/PLAN: Continue current medications, pln, see if CT lung cancer screen will be covered Type 2 diabetes mellitus with stage 3a chronic kidney disease, without long-term current use of insulin (HCC) (Primary) - ALBUMIN / CREATININE RATIO, URINE; Future; Expected date: 05/17/2023 Stage 3a chronic kidney disease (HCC) Atherosclerosis of [place] coronary artery of [place] heart with stable angina pectoris (HCC) Atherosclerosis of [place] coronary artery of [place] heart without angina pectoris Dyslipidemia, goal LDL below 70 History of tobacco abuse HTN, goal below 140/90 Hx of actinic keratosis Hx of nonmelanoma skin cancer 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 Maintaining a healthy weight/BMI was advised. A total of 1500mg of Calcium and 1000 IU of vitamin D were recommended daily, to be obtained from a combination of both diet and supplement sources. 35 min spent with patient, reviewing history, performing physical exam, reviewing labs, studies, specialist OVNs, and reports, educating and coordinating care, discussing treatment, and completing this note Misti Mora DO The following information was reviewed/discussed with the patient: Benefits & harms of screening Potential indications for follow-up testing, if/when necessary Risk of over-diagnosis, false positive findings, and radiation exposure Importance of cigarette smoking abstinence, if applicable Annual adherence to lung cancer screening Impact of comorbidities and ability or willingness to undergo diagnostic testing and/or treatment if something concerning is identified during screening. documented in this encounter Nursing Notes * Kecia Higginbotham LPN - 05/17/2023 10:23 AM EST Jhony Flores presents for 6 month recheck. Medications & HM reviewed. documented in this encounter Plan of Treatment Upcoming Encounters Date Type Department Care Team (Late st Contact Info) Description 06/12/2023 8:00 AM EDT Office Visit Cardiology, [facility] [address] [place] [address] Andriy Vaughn MD [address] [place] [address] 11/13/2023 8:40 AM EDT Office Visit Family Practice [facility] [address] [facility] [place] [address] Misti Mora DO [address] [facility] [place] [address] Scheduled Orders Name Type Priority Associated Diagnoses Orde r Schedule ALBUMIN / CREATININE RATIO, URINE Lab Routine Type 2 diabetes mellitus with stage 3a chronic kidney disease, without long-term current use of insulin (HCC) Expected: 05/17/2023, Expires: 05/17/2024 Scheduled Procedures Name Priority Associated Diagnoses Date/Ti me COLONOSCOPY FLEXIBLE PROXIMA L DIAGNOSTIC Recall History of colonic polyps Health Maintenance Due Date Last Done Comments Albumin/Creatinine Ratio 04/13/2023 023, 06/23/2021, 04/01/2018, Additional history exists Diabetic Eye Exam 05/27/2023 05/26/2022, , 05/25/2021, Additional history exists Depression Screening 08/09/2023 08/08/2022 Diabetic Foot Exam 08/09/2023 08/08/2022, 0 06/15/2020, 04/11/2019, Additional history exists B-12 08/16/2023 08/15/2022, 08/25, 04/11/2019, Additional history exists GFR 11/13/2023 05/15/2023, 03/26, 09/15/2021, Additional history exists HbA1c 11/13/2023 05/15/2023, 07/25, 04/13/2022, Additional history exists CKD HGB USE SMARTSET 22776 05/15/202405/15, 04/13/2022, 06/07/2020, Additional history exists CKD PHOS USE SMARTSET 83032 05/15/2024 05/15/2023, 0 04/13/2022 TSH 05/15/2024 05/15/2023, 07/25, 09/15/2021, Additional history exists COLONOSCOPY-EVERY 3 YRS AGES 18-100 09/22/2025 09/22/2022, 09/22/2022, 05/08/2012, Additional history exists DTaP,Tdap,and Td Vaccines (3 - Td or Tdap) 04/01/2028 04/01/2018, 07/10/2008, 02/26/1998 Zoster Vaccines Completed 01/23/2018, 08/3 03/2017, 08/05/2009 Hepatitis B Completed 06/30/2019, 1006/2018, 11/29/2018 Pneumococcal Vaccine: 65+ Years Completed 06/15/2020, 08/25/2014, 06/12/2011, Additional history exists Influenza Vaccine (FLU shot) Completed 09/2022, 12/29/2021, 12/06/2020, Additional history exists COVID-19 Vaccine Completed 01/09/2023, , 12/07/2021, Additional history exists GARDASIL-HPV IMMUNIZATION SERIES Aged Out No longer eligible based on patient's age to complete this topic MENINGOCOCCAL (MENACTRA/MENVEO) Aged Out No longer eligible based on patient's age to complete this topic documented as of this encounter Medical Devices Implanted Type Area Apprentice Carpenter Device Identifier Shelf Expiration Date Model / Serial / Lot Suture Steel 6 B&S19 [id number] - [id number] Implanted:Qty: 4 on 03/02/2020 [place] [facility] [place] Sternum JNJ : [employer] 08/23/2024 [id number] / / [id number] documented as of this encounter Visit Diagnoses Diagnosis Type 2 diabetes mellitus with stage 3a chronic kidney disease, without long-term current use of insulin (HCC)- Primary Stage 3a chronic kidney disease (HCC) Atherosclerosis of [place] coronary artery of [place] heart with stable angina pectoris (HCC) Atherosclerosis of [place] coronary artery of [place] heart without angina pectoris Dyslipidemia, goal LDL below 70 Other and unspecified hyperlipidemia History of tobacco abuse Personal history of tobacco use, presenting hazards to health HTN, goal below 140/90 Unspecified essential hypertension Hx of actinic keratosis Personal history of diseases of skin and subcutaneous tissue Hx of nonmelanoma skin cancer Personal history of other malignant neoplasm of skin 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 Care Teams Benefits Sales Consultant Relationship Specialty Start Date End Date Misti Mora DO [address] [place] [address] PCP - General Family Medicine 04/27/16 documented as of this encounter
--- OUTSIDE RECORDS SUMMARY | 2023-07-21 15:15 | External Medical Summary | Summary of Care ---
Author Name Unknown Organization [facility] Address [address] [place] [place] [address] Phone [phone] Care Team Providers Care Head Gauge Unit Operator Name Role Phone Misti Mora DO Primary Care Provider Encounter Details Date Type Department Care Team (Late st Contact Info) Description 07/11/2023 Orders Only Family Practice [facility] [address] [place] [address] Misti Mora DO [address] [facility] [place] [address] Allergies Active Allergy Reactions Criticality Noted Date Comments No Known Drug Allergy 01/07/2004 documented as of this encounter (statuses as of 07/11/2023) Medications Medication Sig Dispensed Refills Start Date [...] without history of CABG,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[place] artery of [place] heart with stable angina pectoris (HCC) PLACE 1 TALBET UNDER THE TONGUE EVERY 5 MINUTES NEEDED FOR CHEST PAIN. UP TO 3 DOSES IN 15 MINUTES 25 Tablet 11 06/16/2022 Active [employer] Ultra In Vitro Strip (Glucose Blood)Indications:Typ e 2 diabetes mellitus with hemoglobin A1c goal of less than 7.0% ([facility]) USE TO TEST BLOOD SUGAR ONCE DAILY DIRECTED E11.9 100 Strip 3 11/20/2022 Active Levothyroxine Sodium 75 MCG Oral Tablet (Levoxyl) TAKE 1 TABLET BY MOUTH EVERY DAY AT LEAST 30 MIN BEFORE BREAKFAST OR OTHER MEDICATION 90 Tablet 1 01/18/2023 Active Rosuvastatin Calcium 20 MG Oral Tablet (Crestor)Indications: Dyslipidemia, goal LDL below 70,Old [place] (myocardial infarction),S/P CABG x 4,Coronary artery disease with history of myocardial infarction without history of CABG TAKE 1 TABLET BY MOUTH EVERY DAY 90 Tablet 3 04/18/2023 Active amLODIPine Besylate 2.5 MG Oral Tablet (Norvasc)Indications: S/P CABG x 4,Coronary artery disease with history of myocardial infarction without history of CABG TAKE 1 TABLET BY MOUTH EVERY DAY 90 Tablet 3 04/18/2023 Active Metoprolol Succinate ER 25 MG Oral Tablet Extended Release 24 Hour (toPROL XL)Indications:Old [place] (myocardial infarction),S/P CABG x 4,Coronary artery disease with history of myocardial infarction without history of CABG TAKE 1/2 TABLET BY MOUTH IN THE MORNING AND 1 IN THE EVENING 135 Tablet 3 06/12/2023 Active metFORMIN HCl ER 500 MG Oral Tablet Extended Release 24 Hour (Glucophage XR)Indications:Type 2 diabetes mellitus with hemoglobin A1c goal of less than 7.0% (HCC) TAKE 1 TABLET BY MOUTH EVERY DAY 90 Tablet 3 06/18/2023 Active documented as of this encounter (statuses as of 07/11/2023) Active Problems Problem Noted Date Diagnosed Date Conductive hearing loss, bilateral 09/15/2021 Wears hearing aid 09/15/2021 Hx of actinic keratosis 12/15/2020 Hx of nonmelanoma skin cancer 12/15/2020 Stage 3a chronic kidney disease 09/15/2020 S/P CABG x 4 03/03/2020 Old [place] (myocardial infarction) 04/12/2019 Atherosclerosis of [place] co ronary artery of [place] heart with stable angina pectoris 04/11/2019 HTN, [...] update of inactive term CORONARY ATHEROSCLER. OF [place] CORONARY VESSEL documented as of this encounter (statuses as of 07/11/2023) Resolved Problems Problem Noted Date Diagnosed Date [...] as of this encounter (statuses as of 07/11/2023) Immunizations Name Administration Dates Next Due COVID-19 mRNA, LNP-s, No Pre serve, 2-Dose Series (Moderna) 05/25/2020,04/20/2020 COVID-19, MRNA-LNP, 23-24, P F, 50 MCG/0.5 mL, 12 YRS AND ABOVE, IM (MODERNA-Spikevax) 06/04/2023,01/09/2023 COVID-19, mRNA, LNP-s, PF, B ooster, 100mcg/0.5mg [...] on file documented as of this encounter Functional Status Functional Status Response [...] No 03/02/2020 documented as of this encounter Plan of Treatment Upcoming Encounters Date Type Department Care Team (Late st Contact Info) Description 08/21/2023 7:15 AM EDT Cardiac Studies Cardiac Studies, [facility] [address] [place] [address] 11/13/2023 8:40 AM EDT Office Visit Family Practice [facility] [address] [facility] [place] [address] Misti Mora DO 200 [facility] [place] [address] Scheduled Procedures Name Priority Associated Diagnoses Date/Ti me COLONOSCOPY FLEXIBLE PROXIMA L DIAGNOSTIC Recall History of colonic polyps Health Maintenance Due Date Last Done Comments Albumin/Creatinine Ratio 04/13/2023 023, 06/23/2021, 04/01/2018, Additional history exists Depression Screening 08/09/2023 08/08/2022 Diabetic Foot Exam 08/09/2023 08/08/2022, 0 06/15/2020, 04/11/2019, Additional history exists B-12 08/16/2023 08/15/2022, 08/25, 04/11/2019, Additional history exists GFR 11/13/2023 05/15/2023, 03/26, 09/15/2021, Additional history exists HbA1c 11/13/2023 05/15/2023, 07/25, 04/13/2022, Additional history exists CKD HGB USE SMARTSET 60571 05/15/202405/15, 04/13/2022, 06/07/2020, Additional history exists CKD PHOS USE SMARTSET 42358 05/15/2024 05/15/2023, 0 04/13/2022 TSH 05/15/2024 05/15/2023, 07/25, 09/15/2021, Additional history exists Diabetic Eye Exam 06/19/2024 06/20/2023, (Done elsewhere), 05/26/2022, Additional history exists COLONOSCOPY-EVERY 3 YRS AGES 18-100 09/22/2025 09/22/2022, 09/22/2022, 05/08/2012, Additional history exists DTaP,Tdap,and Td Vaccines (3 - Td or Tdap) 04/01/2028 04/01/2018, 07/10/2008, 02/26/1998 Zoster Vaccines Completed 01/23/2018, 10/26, 08/05/2009 Hepatitis B Completed 06/30/2019, 06/2018, 11/29/2018 Pneumococcal Vaccine: 65+ Years Completed 06/15/2020, 08/25/2014, 06/12/2011, Additional history exists Influenza Vaccine (FLU shot) Completed 09/2022, 12/29/2021, 12/06/2020, Additional history exists COVID-19 Vaccine Completed 06/04/2023, , 08/23/2022, Additional history exists GARDASIL-HPV IMMUNIZATION SERIES Aged Out No longer eligible based on patient's age to complete this topic MENINGOCOCCAL (MENACTRA/MENVEO) Aged Out No longer eligible based on patient's age to complete this topic documented as of this encounter Medical Devices Implanted Type Area Malted Milk Masher Device Identifier Shelf Expiration Date Model / Serial / Lot Suture Steel 6 B&S19 M654g - [id number] Implanted:Qty: 4 on 03/02/2020 by Santos Tejeda MD at [place] [facility] [place]A: Sternum JESSICA : [employer] 08/23/2024 [id number] / / [id number] documented as of this encounter Procedures Procedure Name Priority Date/Time Associated Diagnosis Comments DIABETIC EYE EXAM Routine 06/20/2023 documented in this encounter Results * DIABETIC EYE EXAM (06/20/2023) 06/20/2023 History Per Patient OTHER OUTSIDE LAB (SEE SCANNED REPORT) documented in this encounter Advance Directives Documents on File Type Date Recorded Patient Government Service Executive Expl anation Power of Core Oven Tender 03/31/2020 POWER OF A TTORNEY Latest Code Status on File Code Status Date Activated Date Inactivated Comments Full Code 03/02/2020 12:00 PM 03/06/2020 3:46 PM Thi s order reflects the patients wishes and were consensually agreed upon. Care Teams Head Gauge Unit Operator Relationship Specialty Start Date End Date Misti Mora DO [address] [place] [address] PCP - General Family Medicine 04/27/16 documented as of this encounter
--- OUTSIDE RECORDS SUMMARY | 2023-07-21 15:15 | External Medical Summary | Summary of Care ---
Author Name Unknown Organization [facility] Address [address] [place] [address] Phone [phone] Care Team Providers Care Stem Crusher Name Role Phone Anthony Mora DO Primary Care Provider Reason for Visit * Reason Comments eRx-Medication Refill Encounter Details Date Type Department Care Team (Late st Contact Info) Description 06/17/2023 Refill Family Practice [facility] [address] [facility] [place] [address] Anthony Mora DO [address] [facility] [place] [address] Type 2 diabetes mellitus with hemoglobin A1c goal of less than 7.0% ([facility]) Allergies Active Allergy Reactions Criticality Noted Date Comments No Known Drug Allergy 01/07/2004 documented as of this encounter (statuses as of 06/18/2023) Medications Medication Sig Dispensed Refills Start Date End Date Status FOLIC ACID TABS 1 MG ORIndications:[place] ry atherosclerosis 1 TABLET DAILY 30 0 1 Active ECOTRIN LOW STRENGTH 81 MG OR TBEC 1 TABLET DAILY 30 0 2 Active ONETOUCH ULTRASOFT LANCETS MISCIndications:DM type 2, goal A1c below 7 Use twice daily for Type II diabetes 100 Box 5 1 Active VITAMIN D3 5000 UNITS PO CAPSIndications:Tyra min D deficiency 1 CAPSULE DAILY-for vitamin D 30 Cap 11 3 Active PREVIDENT 5000 BOOSTER PLUS 1.1 % paste APPLY A THIN RIBBON OF PREVIDENT TO BRUSH. BRUSH TEETH FOR 2 MINUTES DO NOT DRINK OR EAT 30MIN AFTER 3 7 Active Cyanocobalamin (B-12) 1000 MCG Capsule Take 1 Capsule by mouth in the morning. 0 Active Turmeric 500 MG Oral Capsule Take 1 Capsule by mouth in the morning. 0 Active Co Q 10 10 MG Oral Capsule Take 1 Cap by mouth daily. 0 Active Famotidine 20 MG Oral Tablet (Pepcid)Indications: as needed as needed Indications: as needed 30 Tab 1 1 Active Lisinopril 2.5 MG Oral Tablet (Prinivil)Indication s:HTN, goal below 140/90 TAKE 1 TABLET BY MOUTH EVERY DAY IN THE MORNING 90 Tablet 3 3 Active Isosorbide Mononitrate ER 60 MG Oral Tablet Extended Release 24 Hour (Imdur) TAKE 1 TABLET BY MOUTH EVERY DAY IN THE MORNING 90 Tablet 3 3 Active Nitroglycerin 0.4 MG Sublingual Tablet Sublingual (Nitrostat)Indicatio ns:S/P CABG x 4,Coronary artery disease with history of myocardial infarction without history of CABG,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[place] artery of [place] heart with stable angina pectoris ([facility]) PLACE 1 TALBET UNDER THE TONGUE EVERY 5 MINUTES NEEDED FOR CHEST PAIN. UP TO 3 DOSES IN 15 MINUTES 25 Tablet 11 3 Active [employer] Ultra In Vitro Strip (Glucose Blood)Indications:Ty pe 2 diabetes mellitus with hemoglobin A1c goal of less than 7.0% ([facility]) USE TO TEST BLOOD SUGAR ONCE DAILY DIRECTED E11.9 100 Strip 3 3 Active Levothyroxine Sodium 75 MCG Oral Tablet (Levoxyl) TAKE 1 TABLET BY MOUTH EVERY DAY AT LEAST 30 MIN BEFORE BREAKFAST OR OTHER MEDICATION 90 Tablet 1 3 Active Rosuvastatin Calcium 20 MG Oral Tablet (Crestor)Indications :Dyslipidemia, goal LDL below 70,Old [place] (myocardial infarction),S/P CABG x 4,Coronary artery disease with history of myocardial infarction without history of CABG TAKE 1 TABLET BY MOUTH EVERY DAY 90 Tablet 3 4 Active amLODIPine Besylate 2.5 MG Oral Tablet (Norvasc)Indications :S/P CABG x 4,Coronary artery disease with history of myocardial infarction without history of CABG TAKE 1 TABLET BY MOUTH EVERY DAY 90 Tablet 3 4 Active Metoprolol Succinate ER 25 MG Oral Tablet Extended Release 24 Hour (toPROL XL)Indications:Old [place] (myocardial infarction),S/P CABG x 4,Coronary artery disease with history of myocardial infarction without history of CABG TAKE 1/2 TABLET BY MOUTH IN THE MORNING AND 1 IN THE EVENING 135 Tablet 3 4 Active metFORMIN HCl ER 500 MG Oral Tablet Extended Release 24 Hour (Glucophage XR)Indications:Type 2 diabetes mellitus with hemoglobin A1c goal of less than 7.0% (HCC) TAKE 1 TABLET BY MOUTH EVERY DAY 90 Tablet 3 4 Active metFORMIN HCl ER 500 MG Oral Tablet Extended Release 24 Hour (Glucophage XR)Indications:Type 2 diabetes mellitus with hemoglobin A1c goal of less than 7.0% (HCC) TAKE 1 TABLET BY MOUTH EVERY DAY 90 Tablet 2 3 06/18/19 24 Discontinued documented as of this encounter (statuses as of 06/18/2023) Active Problems Problem Noted Date Diagnosed Date Conductive hearing loss, bilateral 09/15/2021 Wears hearing aid 09/15/2021 Hx of actinic keratosis 12/15/2020 Hx of nonmelanoma skin cancer 12/15/2020 Stage 3a chronic kidney disease 09/15/2020 S/P CABG x 4 03/03/2020 Old [place] (myocardial infarction) 04/12/2019 Atherosclerosis of [place] co ronary artery of [place] heart with stable angina pectoris 04/11/2019 HTN, [...] update of inactive term CORONARY ATHEROSCLER. OF [place] CORONARY VESSEL documented as of this encounter (statuses as of 06/18/2023) Resolved Problems Problem Noted Date Diagnosed Date [...] as of this encounter (statuses as of 06/18/2023) Immunizations Name Administration Dates Next Due COVID-19 [...] No 03/02/2020 documented as of this encounter Miscellaneous Notes * Telephone Encounter - Sandeep Villagran RPh - 06/18/2023 10:27 AM EDTSigned Prescriptions: Disp Refills metFORMIN HCl ER 500 MG Oral Tablet Extend*90 Tab*3 Sig: TAKE 1TABLET BY MOUTH EVERY DAYAuthorizing Provider: ANTHONY MORAOrdergiovanni User: SANDEEP VILLAGRAN N documented in this encounter Plan of Treatment Upcoming Encounters Date Type Department Care Team (Late st Contact Info) Description 08/21/2023 7:15 AM EDT Cardiac Studies Cardiac Studies, [facility] [address] [facility] [place] [address] 11/13/2023 8:40 AM EDT Office Visit Family Practice [facility] [address] [place] [address] Anthony Mora DO [address] [facility] [place] [address] Scheduled Procedures Name Priority Associated Diagnoses Date/Ti [...] Additional history exists CKD HGB USE SMARTSET 70007 05/15/202405/15, 04/13/2022, 06/07/2020, Additional history exists CKD PHOS USE SMARTSET 65747 05/15/2024 05/15/2023, 0 04/13/2022 TSH 05/15/2024 05/15/2023, [...] this encounter Medical Devices Implanted Type Area Screen Printing Press Operator Device Identifier Shelf Expiration Date Model / Serial / Lot Suture Steel 6 B&S19 [id number] - [id number] Implanted:Qty: 4 on 03/02/2020 by Santos Tejeda MD at [place] [facility] [place] N/A: Sternum JNJ : [employer] 08/23/2024 [id number] / / [id number] documented as of this encounter Visit Diagnoses Diagnosis Type 2 diabetes mellitus with hemoglobin A1c goal of less than 7.0% ([facility]) documented in this encounter Advance Directives Documents on File Type Date Recorded Patient Pipe Cutter Expl anation Power of Wallpaper Printer 03/31/2020 POWER OF A TTORNEY Latest Code Status on File Code Status Date Activated Date Inactivated Comments Full Code 03/02/2020 12:00 PM 03/06/2020 3:46 PM Thi s order reflects the patients wishes and were consensually agreed upon. Care Teams Stem Crusher Relationship Specialty Start Date End Date Anthony Mora DO [address] [place] [address] PCP - General Family Medicine 04/27/16 documented as of this encounter
--- OUTSIDE RECORDS SUMMARY | 2023-07-21 15:15 | External Medical Summary | Continuity of Care Document ---
Author Name Unknown Organization [facility] [address] [facility] 2 Address [address] [id number] Care Team Providers Care Welfare Service Aide Name Role Phone Abby Misti Mathur Primary Care Physician [phone] Encounter [facility] [id number] Date(s): 07/16/23 - 07/16/23 [facility] [address] [address] [id number] Encounter Diagnosis Actinic elastosis(Discharge Diagnosis) - 07/16/23 Actinic keratoses(Discharge Diagnosis) - 07/16/23 History of basal cell carcinoma(Discharge Diagnosis) - 07/16/23 Lentigo(Discharge Diagnosis) - 07/16/23 Seborrheic keratoses(Discharge Diagnosis) - 07/16/23 Discharge Disposition: Home or Self Care Attending Physician: MD Khalil Sara B Referring Physician: MD Khalil Sara B Allergies, Adverse Reactions, Alerts No Known Medication Allergies Assessment and Plan Extracted from: Title:Dermatology Office Visit Note Author:Oli kebede MD, Sara B Date:07/16/23 1.Actinic elastosis Chronic, not at goal. We discussed his increased risk and sun protective strategies. Call with any new or changing lesions 2.Actinic keratoses Acute. We discussed precancerous nature. We discussed watchful waiting as these are thin and sun protection versus freezing versus photodynamic therapy versus Efudex. He elected to proceed with freezing. More than 15 lesions treated today. Lesions treated with liquid nitrogen. Patient aware of possibility of infection, hypo or hyperpigmentation or scarring and did elect to proceed. They should inform me of any problems or recurrences post treatment. Care sheet given. 3.History of basal cell carcinoma And squamous cell in situ. No evidence recurrent skin cancer. Warning signs of skin cancer were reviewed. Sun protection reviewed. Follow-up in 6 months, sooner for any changing or growing lesions or acute concerns. I also recommended monthly self skin exams 4.Lentigo Acute and chronic, within normal limits today 5.Seborrheic keratoses Acute and chronic, within normal limits today Medications amLODIPine 2.5 mg oral tablet TAKE 1 TABLET BY MOUTH EVERY DAY Start Date: 05/19/21 Status: Ordered aspirin 81 mg oral tablet Start: 01/24/18 8:12:00 EDT, 1 tab, PO, Daily Start Date: 01/24/18 Status: Ordered folic acid Start: 01/24/18 8:12:00 EDT Start Date: 01/24/18 Status: Ordered isosorbide mononitrate 60 mg oral tablet, extended release Start: 05/19/21 13:45:00 EST, 1 tab, PO, qAM Start Date: 05/19/21 Status: Ordered levothyroxine 50 mcg (0.05 mg) oral tablet TAKE 1 TABLET BY MOUTH DAILY. (AT LEAST 30 MIN PRIOR TO BREAKFAST OR OTHER MEDS) Start Date: 01/24/18 Status: Ordered lisinopril 2.5 mg oral tablet TAKE 1 TABLET BY MOUTH EVERY DAY Start Date: 01/24/18 Status: Ordered metFORMIN 500 mg oral tablet TAKE 1 TABLET BY MOUTH TWICE A DAY WITH BREAKFAST AND DINNER Start Date: 01/24/18 Status: Ordered Metoprolol Tartrate 50 mg oral tablet TAKE HALF TABLET BY MOUTH 2 TIMES A DAY. Start Date: 01/24/18 Status: Ordered nitroglycerin 0.4 mg sublingual tablet Start: 05/19/21 13:44:00 EST, 1 tab, SL, q5min, Disp# 25 tab, PRN: as needed for chest pain Start Date: 05/19/21 Status: Ordered rosuvastatin 20 mg oral tablet Start: 11/01/20 15:39:00 EDT, 1 tab, PO, Daily Start Date: 11/01/20 Status: Ordered Mental Status 07/16/23 Barriers to Learning one year None evide nt Mandatory Health Literacy Documentation Yes Health Literacy Communication Barriers N ever Primary Language Romanian Problem List Condition Confirmation Course Effective Dates Status H ealth Status Informant Changing skin lesion Confirmed Active Diabetes Confirmed Active Dermatitis Confirmed Active History of basal cell carcinoma Confirmed Active Hyperlipidemia Confirmed Active HTN (hypertension) Confirmed Active Hypothyroid Confirmed Active Inflamed seborrheic keratosis Confirmed Active 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 Active Lentigo Confirmed Active Milia Confirmed Active Actinic keratoses Confirmed Active Seborrhea Confirmed Active Seborrheic keratoses Confirmed Active Solar elastosis Confirmed Active Diagnosis Diagnosis Type Effective Dates Health Status Clinical Service Informant Actinic elastosis Discharge Diagnosis 07/16/23 Actinic keratoses Discharge Diagnosis 07/16/23 Seborrheic keratoses Discharge Diagnosis 07/16/23 History of basal cell carcinoma Discharge Diagnosis 07/16/23 Lentigo Discharge Diagnosis 07/16/23 Procedures Procedure Date Related Diagnosis Body Site Status Electrodesiccation with curettage 01/10/23 Completed Shave biopsy 1 01/01/23 Completed Heart 2, 3 03/02/20 Completed CABG x 4 - Coronary artery b ypass grafts x 4 02/2020 Completed Shave biopsy and cauterization of skin 03/24/19 Completed Dental 4 Completed Mohs surgery 5 Completed Mohs surgery 6 Completed Stent 7 Completed 1right preauricular 3Quadruple bypass [id number] 5right jehovah's witness [id number] forehead [id number] Social History Social History Type Response Smoking Status Former Smoker, quit > 1 yr Sex Male Dermatology Outpatient Note * MD Remi, Summer B: PERFORM Event Display: Dermatology Outpt Note Authored Date: [id number] Chief Complaint skin check- multiple concerns History of Present Illness The patient is a pleasant 78-year-old male with a history of 2 basal cells in the past onthe right cheek in 2001 on the left forehead. Originally ED and C and then treated with Mohs in October of [address] Sherman. Hx AK on scalp in past and right cheek .Had a squamous cell in situ on the right preauricular treated with electrodesiccation and curettage on the left cheek fall 2022 [1] Today has a list of numerous complaints written down. Patient has 7 spots of cocnern Left knee- growing, elevated- infalmed SK right neck-infalmed SK Left jehovah's witness top left ear side nose right ear right jehovah's witness- all AK Physical Exam Gen: Well appearing patient, no acute distress. Alert and oriented x3. Good mood. Skin examination completed of face, eyelids, scalp, hair, lips, ears, neck, chest, back, abdomen,upper and lower extremities bilaterally including hands, feet, fingers and toes, fingernails and toenails, pt declined buttocks and groin.He points out to inflamed seborrheic keratoses left knee and right neck. Patient has more than 15 actinic keratoses scattered across the cheeks forehead scalp and ears. He has had PDT in the past. He has scattered lentigo's and seborrheic keratoses. Sun damage skin on the faceneck forearms handsscalp predominantly.No evidence recurrent skin cancer-scars clear. No neck supraclavicular posterior occipital or axillary lymphadenopathy today. Assessment/Plan 1.Actinic elastosis Chronic, not at goal. We discussed his increased risk and sun protective strategies. Call with any new or changing lesions 2.Actinic keratoses Acute. We discussed precancerous nature. We discussed watchful waiting as these are thin and sun protection versus freezing versus photodynamic therapy versus Efudex. He elected to proceed withfreezing. More than 15 lesions treated today. Lesions treated with liquid nitrogen. Patient aware of possibility of infection, hypo or hyperpigmentation or scarring and did elect to proceed. They should inform me of any problems or recurrences post treatment. Care sheet given. 3.History of basal cell carcinoma And squamous cell in situ. No evidence recurrent skin cancer. Warning signs of skin cancer werereviewed. Sun protection reviewed. Follow-up in 6 months, sooner for any changing or growing lesions or acute concerns. 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 Procedure/Surgical History Electrodesiccation with curettage| Service Date: 01/10/2023Shave biopsy| Service Date: 01/01/2023Heart| Service Date: 03/02/2020CABG x 4 - Coronary artery bypass grafts x 4| Service Date:02/2020Shave biopsy and cauterization of skin| Service Date: 03/24/2019StentDentalMohs surgeryMohs surgery Medications amLODIPine(amLODIPine 2.5 mg oral tablet) aspirin(aspirin 81 mg oral tablet), 81 mg= 1 tab, PO, Daily folic acid isosorbide mononitrate(isosorbide mononitrate 60 mg oral tablet, extended release), 60 mg= 1 tab, PO, qAM levothyroxine(levothyroxine 50 mcg (0.05 mg) oral tablet) lisinopril(lisinopril 2.5 mg oral tablet) metFORMIN(metFORMIN 500 mg oral tablet) metoprolol(Metoprolol Tartrate 50 mg oral tablet) nitroglycerin(nitroglycerin 0.4 mg sublingual tablet), 0.4 mg= 1 tab, SL, q5min, PRN rosuvastatin(rosuvastatin 20 mg oral tablet), 20 mg= 1 tab, PO, Daily Allergies No Known Medication Allergies Social History Smoking Status Former Smoker, quit > 1 yr Family History Skin cancer: Mother. Health Status Family Member(s) [1]Office Visit Note; MD Remi, Summer Goins 01/01/2023 15:04 EDT Electronic Signature on File Electronically Reviewed/Signed by: Summer Khalil MD Author Signature Dt/Tm:07/16/2023 10:26 AM Department of Dermatology [facility] Patient Care team information Care Team Personnel Name: DO Mora Carey K Position: Referring DIRECT Member Role: Primary Care Provider Address: Address: [address] [place] [address] Care Team Related Persons Name: VERN MURILLO Address: home No Address Provided"
--- OUTSIDE RECORDS SUMMARY | 2023-07-21 15:15 | External Medical Summary | Summary of Care ---
Author Name Unknown Organization [facility] Address [address] [place] [address] Phone [phone] Care Team Providers Care Tool And Gauge Inspector Name Role Phone Anthony Mora DO Primary Care Provider Reason for Visit * Reason Comments eRx-Medication Refill Encounter Details Date Type Department Care Team (Late st Contact Info) Description 07/18/2023 Refill Family Practice [facility] [address] [place] [address] Anthony Mora DO [address] [facility] [address] Allergies Active Allergy Reactions Criticality Noted Date Comments No Known Drug Allergy 01/07/2004 documented as of this encounter (statuses as of 07/19/2023) Medications Medication Sig Dispensed Refills Start Date [...] without history of CABG,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[place] artery [place] heart with stable angina pectoris (HCC) PLACE 1 TALBET UNDER THE TONGUE EVERY 5 MINUTES NEEDED FOR CHEST PAIN. UP TO 3 DOSES IN 15 MINUTES 25 Tablet 11 3 Active OneTouch Ultra In Vitro Strip (Glucose Blood)Indications:Ty pe 2 diabetes mellitus with hemoglobin A1c goal of less than 7.0% ([facility]) USE TO TEST BLOOD SUGAR ONCE DAILY DIRECTED E11.9 100 Strip 3 3 Active Rosuvastatin Calcium 20 MG Oral Tablet (Crestor)Indications :Dyslipidemia, goal LDL below 70,Old [place] (myocardial infarction),S/P CABG x 4,Coronary artery disease [...] Tablet Extended Release 24 Hour (toPROL XL)Indications:Old [place] (myocardial infarction),S/P CABG x 4,Coronary artery disease [...] EVERY DAY 90 Tablet 3 4 Active Levothyroxine Sodium 75 MCG Oral Tablet (Levoxyl) TAKE 1 TABLET BY MOUTH EVERY DAY AT LEAST 30 MIN BEFORE BREAKFAST OR OTHER MEDICATION 90 Tablet 1 4 Active Levothyroxine Sodium 75 MCG Oral Tablet (Levoxyl) TAKE 1 TABLET BY MOUTH EVERY DAY AT LEAST 30 MIN BEFORE BREAKFAST OR OTHER MEDICATION 90 Tablet 1 3 07/19/19 24 Discontinued documented as of this encounter (statuses as of 07/19/2023) Active Problems Problem Noted Date Diagnosed Date Conductive hearing loss, bilateral 09/15/2021 Wears hearing aid 09/15/2021 Hx of actinic keratosis 12/15/2020 Hx of nonmelanoma skin cancer 12/15/2020 Stage 3a chronic kidney disease 09/15/2020 S/P CABG x 4 03/03/2020 Old [place] (myocardial infarction) 04/12/2019 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 OF [place] CORONARY VESSEL documented as of this encounter (statuses as of 07/19/2023) Resolved Problems Problem Noted Date Diagnosed Date [...] as of this encounter (statuses as of 07/19/2023) Immunizations Name Administration Dates Next Due COVID-19 [...] encounter Miscellaneous Notes * Telephone Encounter - Sinan Conrad [facility] - 07/19/2023 8:52 AM EDTSigned Prescriptions: Disp Refills Levothyroxine Sodium 75 MCG Oral Tablet (L*90 Tab*1 Sig: TAKE 1 TABLET BY MOUTH EVERY DAY AT LEAST 30 MIN BEFORE BREAKFAST OR OTHER MEDICATIONAuthorizing Provider: ANTHONY MORA User: SINAN CONRAD documented in this encounter Plan of Treatment Upcoming Encounters Date Type Department Care Team (Late st Contact Info) Description 08/21/2023 7:15 AM EDT Cardiac Studies Cardiac Studies, [facility] [address] [facility] [place] [address] 11/13/2023 8:40 AM EDT Office Visit Family Practice [facility] [address] [place] [address] Anthony Mora DO [address] [facility] [place] [address] Scheduled Procedures Name Priority Associated Diagnoses Date/Ti [...] Additional history exists CKD HGB USE SMARTSET 00304 05/15/202405/15, 04/13/2022, 06/07/2020, Additional history exists CKD PHOS USE SMARTSET 79047 05/15/2024 05/15/2023, 0 04/13/2022 TSH 05/15/2024 05/15/2023, 07/25, 09/15/2021, Additional history exists Diabetic Eye Exam 06/19/2024 06/20/2023, (Done elsewhere), 05/26/2022, Additional history exists COLONOSCOPY-EVERY 3 YRS AGES 18-100 09/22/2025 09/22/2022, 09/22/2022, 05/08/2012, Additional history exists DTaP,Tdap,and Td Vaccines (3 - Td or Tdap) 04/01/2028 04/01/2018, 07/10/2008, 02/26/1998 Zoster Vaccines Completed 01/23/2018, 083 03/2017, 08/05/2009 Hepatitis B Completed 06/30/2019, 100 06/2018, 11/29/2018 Pneumococcal Vaccine: 65+ Years Completed [...] this encounter Medical Devices Implanted Type Area Concrete Engineering Technician Device Identifier Shelf Expiration Date Model / Serial / Lot Suture Steel 6 [id number] - [id number] Implanted:Qty: 4 on 03/02/2020 by Santos Tejeda MD [place] [facility] N/A: Sternum [place] : [employer] 08/23/2024 [id number] / / [id number] documented as of this encounter Advance Directives Documents on File Type Date Recorded Patient Tax Services Specialist Expl anation Power of River Driver 03/31/2020 POWER OF A TTORNEY Latest Code Status on File Code Status Date Activated Date Inactivated Comments Full Code 03/02/2020 12:00 PM 03/06/2020 3:46 PM Thi s order reflects the patients wishes and were consensually agreed upon. Care Teams Tool And Gauge Inspector Relationship Specialty Start Date End Date Anthony Mora DO [address] [place] [address] PCP - General Family Medicine 04/27/16 documented as of this encounter
--- OUTSIDE RECORDS SUMMARY | 2023-07-21 15:15 | External Medical Summary | Summary of Care ---
Author Name Unknown Organization [facility] Address [address] [facility] [place] [address] Phone [phone] Care Team Providers Care Fiberglass Boat Finisher Name Role Phone Anthony Mora DO Primary Care Provider Reason for Referral * Precert (Within 10 days (routine)) - Authorized Specialty Diagnoses / Procedures Referred By Contac t Referred To Contact Cardiac Studies Diagnoses Old [place] (myocardial infarction) S/P CABG x 4 Coronary artery disease with history of myocardial infarction without history of CABG Procedures ECHO, COMPLETE (2D), TRANS-THORACIC Andriy Vaughn MD [address] [place] [address] Referral ID Status Reason Start Date Expiration Date V isits Requested Visits Authorized [id number] Authorized Precert 06/26/2023 999 999 Reason for Visit * Reason Comments Follow Up Encounter Details Date Type Department Care Team (Late st Contact Info) Description 06/12/2023 8:00 AM EDT Office Visit Cardiology, [facility] [address] [place] [address] Andriy Vaughn MD [address] [place] [address] S/P CABG x 4*; Old DC (myocardial infarction); Coronary artery disease with history of myocardial infarction without history of CABG Allergies Active Allergy Reactions Criticality Noted Date Comments No Known Drug Allergy 01/07/2004 documented as of this encounter (statuses as of 06/12/2023) Medications Medication Sig Dispensed Refills Start Date [...] without history of CABG,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[place] artery of [place] heart with stable angina pectoris (HCC) PLACE 1 TALBET UNDER THE TONGUE EVERY 5 MINUTES NEEDED FOR CHEST PAIN. UP TO 3 DOSES IN 15 MINUTES 25 Tablet 11 3 Active metFORMIN HCl ER 500 MG Oral Tablet Extended Release 24 Hour (Glucophage XR)Indications:Type 2 diabetes mellitus with hemoglobin A1c goal of less than 7.0% (HCC) TAKE 1 TABLET BY MOUTH EVERY DAY 90 Tablet 2 3 Active OneTouch Ultra In Vitro Strip (Glucose Blood)Indications:Ty pe 2 diabetes mellitus with hemoglobin A1c goal of less than 7.0% ([facility]) USE TO TEST BLOOD SUGAR ONCE DAILY DIRECTED E11.9 100 Strip 3 3 Active Levothyroxine Sodium 75 MCG Oral Tablet (Levoxyl) TAKE 1 TABLET BY MOUTH EVERY DAY AT LEAST 30 MIN BEFORE BREAKFAST OR OTHER MEDICATION 90 Tablet 1 3 Active Rosuvastatin Calcium 20 MG Oral Tablet (Crestor)Indications :Dyslipidemia, goal LDL below 70,Old [place] (myocardial infarction),S/P CABG x 4,Coronary artery disease [...] Tablet Extended Release 24 Hour (toPROL XL)Indications:Old DC (myocardial infarction),S/P CABG x 4,Coronary artery disease with history of myocardial infarction without history of CABG TAKE 1/2 TABLET BY MOUTH IN THE MORNING AND 1 IN THE EVENING 135 Tablet 3 4 Active Metoprolol Succinate ER 25 MG Oral Tablet Extended Release 24 Hour (toPROL XL)Indications:Old [place] (myocardial infarction),S/P CABG x 4,Coronary artery disease with history of myocardial infarction without history of CABG TAKE 1 TABLET BY MOUTH IN THE MORNING AND 1/2 IN THE EVENING 135 Tablet 3 3 06/12/19 24 Discontinued documented as of this encounter (statuses as of 06/12/2023) Active Problems Problem Noted Date Diagnosed Date Conductive hearing loss, bilateral 09/15/2021 Wears hearing aid 09/15/2021 Hx of actinic keratosis 12/15/2020 Hx of nonmelanoma skin cancer 12/15/2020 Stage 3a chronic kidney disease 09/15/2020 S/P CABG x 4 03/03/2020 Old DC (myocardial infarction) 04/12/2019 Atherosclerosis of [place] co ronary artery of [place] heart with stable angina pectoris 04/11/2019 HTN, [...] update of inactive term CORONARY ATHEROSCLER. OF [place] CORONARY VESSEL documented as of this encounter (statuses as of 06/12/2023) Resolved Problems Problem Noted Date Diagnosed Date [...] as of this encounter (statuses as of 06/12/2023) Immunizations Name Administration Dates Next Due COVID-19 [...] Sign Reading Time Taken Comments Blood Pressure 132/62 06/12/2023 7:53 AM EDT Pulse 72 06/12/2023 7:53 AM EDT Temperature - - Respiratory Rate 14 06/12/2023 7:53 AM EDT Oxygen Saturation - - Inhaled Oxygen Concentration - - Weight 74.4 kg (164 lb) 06/12/2023 7:53 AM EDT Height - - Body Mass Index 24.22 11/21/2022 10:17 AM EDT documented in this [...] (15 years old or older) No 03/02/20 Cognitive Status Response Date of Assessm ent Because of a physical, menta l, or emotional condition, do you have serious difficulty concentrating, remembering, or making decisions? (5 years old or older) No 03/02/2020 documented as of this encounter Progress Notes * Andriy Vaughn MD - 06/12/2023 8:00 AM EDT June 12, 2023 Cardiology Follow Up Referring Provider: PCP: ANTHONY MORA [address] [place] [address] [phone] Chief Complaint: Chronic stable ischemic heart disease SUBJECTIVE: Jhony Flores is a 78 year old year old male with ongoing cardiac issues 1. Atherosclerotic coronary disease with remote apical myocardial infarction, 2000. 2. Coronary artery intervention, 2000, with PTCA of a large ramus intermedius. 3. Recurrent angina February 2020 with cardiac catheterization after abnormal stress testing demonstrating 3 vessel disease with left main stenosis 4. Coronary bypass grafting x4 March 02, 2020 left internal mammary artery graft to the left anterior descending, saphenous vein graft sequential to the ramus- OM 2, saphenous vein graft to the left posterior lateral 5. Repeat cardiac catheterization for angina pectoris June 09, 2020 with patent grafts, stable class 2 angina pectoris post treatment 6. Hyperlipidemia 7. Type 2 diabetes mellitus 8. Hypertension Patient presents today in follow-up. Notes no acute complaints but notes has slowed over the past year's time still active. Notes strenuous hike last fall to extended hours to perform but able to getthrough. Has not used any sublingual nitroglycerin. Is aware of mid afternoon fatigue and naps on anear daily basis. No fevers chills unexplained infections. No edema. A Complete Review of Systems is as stated above or negative. Patient Active Problem List Diagnosis Code CORONARY ATHEROSCLER. 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 E03.8, E06.3 Old DC (myocardial infarction) I25.2 S/P CABG x 4 Z95.1 Stage 3a chronic kidney disease (HCC) N18.31 Hx of actinic keratosis Z87.2 Hx of nonmelanoma skin cancer Z85.828 Conductive hearing loss, bilateral H90.0 Wears hearing aid Z97.4 Review of patient's allergies indicates: Allergen Reactions No Known Drug Allergy Current Outpatient Medications Medication Sig Dispense Refill FOLIC ACID TABS 1 MG OR 1 TABLET DAILY 30 0 ECOTRIN LOW STRENGTH 81 MG OR TBEC 1 TABLET DAILY 30 0 ONETOUCH ULTRASOFT LANCETS MISC Use twice daily for Type II diabetes 100 Box 5 VITAMIN D3 5000 UNITS PO CAPS 1 CAPSULE DAILY-for vitamin D 30 Cap 11 PREVIDENT 5000 BOOSTER PLUS 1.1 % paste APPLY A THIN RIBBON OF PREVIDENT TO BRUSH. BRUSH TEETH FOR 2 MINUTES DO NOT DRINK OR EAT 30MIN AFTER 3 Cyanocobalamin (B-12) 1000 MCG Capsule Take 1 Capsule by mouth in the morning. Turmeric 500 MG Oral Capsule Take 1 Capsule by mouth in the morning. Co Q 10 10 MG Oral Capsule Take 1 Cap by mouth daily. Famotidine 20 MG Oral Tablet (Pepcid) as needed Indications: as needed 30 Tab 1 Lisinopril 2.5 MG Oral Tablet (Prinivil) TAKE 1 TABLET BY MOUTH EVERY DAY IN THE MORNING 90 Tablet 3 Isosorbide Mononitrate ER 60 MG Oral Tablet Extended Release 24 Hour (Imdur) TAKE 1 TABLET BY MOUTHEVERY DAY IN THE MORNING 90 Tablet 3 Nitroglycerin 0.4 MG Sublingual Tablet Sublingual (Nitrostat) PLACE 1 TALBET UNDER THE TONGUE EVERY5 MINUTES NEEDED FOR CHEST PAIN. UP TO 3 DOSES IN 15 MINUTES 25 Tablet 11 metFORMIN HCl ER 500 MG Oral Tablet Extended Release 24 Hour (Glucophage XR) TAKE 1 TABLET BY MOUTHEVERY DAY 90 Tablet 2 OneTouch Ultra In Vitro Strip (Glucose Blood) USE TO TEST BLOOD SUGAR ONCE DAILY DIRECTED E11.9 100 Strip 3 Levothyroxine Sodium 75 MCG Oral Tablet (Levoxyl) TAKE 1 TABLET BY MOUTH EVERY DAY AT LEAST 30 MIN BEFORE BREAKFAST OR OTHER MEDICATION 90 Tablet 1 Rosuvastatin Calcium 20 MG Oral Tablet (Crestor) TAKE 1 TABLET BY MOUTH EVERY DAY 90 Tablet 3 amLODIPine Besylate 2.5 MG Oral Tablet (Norvasc) TAKE 1 TABLET BY MOUTH EVERY DAY 90 Tablet 3 Metoprolol Succinate ER 25 MG Oral Tablet Extended Release 24 Hour (toPROL XL) TAKE 1/2 TABLET BY MOUTH IN THE MORNING AND 1 IN THE EVENING 135 Tablet 3 No current facility-administered medications for this visit. OBJECTIVE/PHYSICAL EXAMINATION: BP 132/62 | Pulse 72 | Resp 14 | Wt 74.4 kg (164 lb) | BMI 24.22 kg/m | BSA 1.9 m General: Age-appropriate male no acute distress Head: normocephalic, no masses, lesions, tenderness or abnormalities Eyes: conjunctiva are pink and non-injected, sclera clear Throat: clear Nares: without discharge Neck: supple, no adenopathy, no bruits, normal jugular venous pulse, no hepatojugular reflux, no carotid bruits Chest: normal shape and normal respiratory effort midline incision well healed Lungs: clear to auscultation and percussion Cardiac Exam: - regular rate & rhythm, grade 1-2/6 systolic murmur, no diastolic murmur, gallopor rub - normal S-1, normal S-2 heart rate 60 Abdomen: abdomen soft, non-tender, no abnormal masses, no hepatosplenomegaly, no abdominal bruit, no femoral bruit Musculoskeletal: no gait disturbance, no joint inflammation, no deforming arthritis Extremities: no edema, no cyanosis, pulses intact 2+/4 Neuro: grossly normal exam Data: EKG November 22, 2021, personally reviewed Sinus bradycardia 51 beats per minute with normal tracing Lipid Panel Results: Results for orders placed or performed in visit on 02/25/16 LIPID PANEL Result Value Ref Range HOURS FASTING 12 hours Triglycerides 165 <200 mg/dL Cholesterol 138 <200 mg/dL HDL Cholesterol 44 >39 mg/dL Cholesterol-HDL Ratio 3.1 LDL Cholesterol 61 0 - 129 mg/dL Results for orders placed or performed in visit on 05/15/23 LIPID PANEL WITH DIRECT LDL IF TG IS HIGH Result Value Ref Range Triglycerides 177 (H) <=174 mg/dL Cholesterol 107 <200 mg/dL HDL Cholesterol 44 >39 mg/dL Non-HDL Cholesterol 63 <=159 mg/dL LDL 44 Carotid duplex May 27, 2021 personally reviewed Impression: No obstructive disease Right carotid artery duplex examination indicates evidence of less than 50% stenosis of the internal carotid artery. Left carotid artery duplex examination indicates evidence of less than 50% stenosis of the internalcarotid artery Prior study had noted moderate left carotid artery stenosis ASSESSMENT: 78 year old year old male with 1. Chronic stable ischemic heart disease status post coronary bypass grafting February 2020 for left main coronary artery disease on guideline directed optimal medical regimen 2.Stable class 1-2 angina pectoris. 3. Hyperlipidemia well managed. 4. Mid day fatigue PLAN: Echocardiogram to reassess heart murmur and LV systolic function Change metoprolol succinate to 12.5 mg a.m., 25 mg p.m. May ultimately reduce this to 12.5 mg twiceper day depending on response in symptoms. Currently angina free DISPOSITION: Return 6 months Andriy Vaughn MD Cardiology, [address] [address] I spent a total of 30-39 minutes (exact time 30 mins) on the date of service in preparation, delivery, and documentation of the care provided to Jhony Flores excluding any time spent in the performance of separately billed services. This chart was completed in part utilizing [employer] Speech Voice Recognition Software. Grammatical errors, random word insertions, prounoun errors, and incomplete sentences are an occasional consequence of this system due to software limitations, ambient noise, and hardware issues. Any formal questions or concerns about the content, text, or information contained within the body of this dictation should be directly addressed to the provider for clarification. documented in this encounter Nursing Notes * Barbra Wren LPN - 06/12/2023 7:53 AM EDT Examination Room: 14 Name: Jhony Flores Date of : 1945 Reason for Visit: Follow up Problems/Concerns: Denies cardiac complaint Interim Hosp(s): denies Chest Pain/SOB: denies MyChart Discussed: ALREADY ACTIVE Patient was instructed to not get up on the exam table until directed and assisted by their provider; patient is to remain seated in the chair/ wheelchair/ exam table for fall prevention and safety reasons. Patient is aware staff will assist stepping down off exam table with personnel. documented in this encounter Plan of Treatment Upcoming Encounters Date Type Department Care Team (Late st Contact Info) Description 08/21/2023 7:15 AM EDT Cardiac Studies [facility], [facility] [address] [facility] [address] 11/13/2023 8:40 AM EDT Office Visit Family Practice [employer] [address] [facility] [place] [address] Anthony Mora, [address] [facility] [place] [address] Scheduled Orders Name Type Priority Associated Diagnoses Orde r Schedule ECHO, COMPLETE (2D), TRANS-THORACIC Echocardiology Routine Old DC (myocardial infarction) S/P CABG x 4 Coronary artery disease with history of myocardial infarction without history of CABG Expected: 06/26/2023 (Approximate), Expires: 07/12/2025 Scheduled Procedures Name Priority Associated Diagnoses Date/Ti [...] Additional history exists CKD HGB USE SMARTSET 71701 05/15/202405/15, 04/13/2022, 06/07/2020, Additional history exists CKD PHOS USE SMARTSET 41543 05/15/2024 05/15/2023, 0 04/13/2022 TSH 05/15/2024 05/15/2023, [...] this encounter Medical Devices Implanted Type Area Retail Salesperson Device Identifier Shelf Expiration Date Model / Serial / Lot Suture Steel 6 B&S19 [id number] - [id number] Implanted:Qty: 4 on 03/02/2020 [place] [facility] [place] Sternum [place] : [employer] 08/23/2024 [id number] / / [id number] documented as of this encounter Visit Diagnoses Diagnosis S/P CABG x 4- Primary Postsurgical aortocoronary bypass status Old DC (myocardial infarction) Old myocardial infarction Coronary artery disease with history of myocardial infarction without history of CABG Coronary atherosclerosis of cata[place] coronary artery documented in this encounter Advance Directives Documents on File Type Date Recorded Patient Clothing Busheler Expl anation Power of Director Alumni Relations 03/31/2020 POWER OF A TTORNEY Latest Code Status on File Code Status Date Activated Date Inactivated Comments Full Code 03/02/2020 12:00 PM 03/06/2020 3:46 PM Thi s order reflects the patients wishes and were consensually agreed upon. Care Teams Fiberglass Boat Finisher Relationship Specialty Start Date End Date Anthony Mora DO [address] [place] [address] PCP - General Family Medicine 04/27/16 documented as of this encounter"
--- OUTSIDE RECORDS SUMMARY | 2023-07-21 15:15 | External Medical Summary | Summary of Care ---
Author Name Unknown Organization [facility] Address [address] [facility] [place] [address] Phone [phone] Care Team Providers Care Terrazzo Layer Helper Name Role Phone Misti Mora DO Primary Care Provider Encounter Details Date Type Department Care Team (Late st Contact Info) Description 06/21/2023 Documentation Cardiovascular Surgery [facility] [address] [facility] [place] [address] Matthew Wyatt PA-C [address] [facility] [address] Allergies Active Allergy Reactions Criticality Noted Date Comments No Known Drug Allergy 01/07/2004 documented as of this encounter (statuses as of 06/21/2023) Medications Medication Sig Dispensed Refills Start Date [...] without history of CABG,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[place] artery of [place] heart with stable angina pectoris ([facility]) PLACE [address] TALBET UNDER THE TONGUE EVERY 5 MINUTES NEEDED FOR CHEST PAIN. UP TO 3 DOSES IN 15 MINUTES 25 Tablet 11 06/16/2022 Active OneTouch Ultra In Vitro Strip (Glucose Blood)Indications:Typ e 2 diabetes mellitus with hemoglobin A1c goal of less than 7.0% ([facility]) USE TO TEST BLOOD SUGAR ONCE DAILY DIRECTED E11.9 100 Strip 3 11/20/2022 Active Levothyroxine Sodium 75 MCG Oral Tablet (Levoxyl) TAKE 1 TABLET BY MOUTH EVERY DAY AT LEAST 30 MIN BEFORE BREAKFAST OR OTHER MEDICATION 90 Tablet 1 01/18/2023 Active Rosuvastatin Calcium 20 MG Oral Tablet (Crestor)Indications: Dyslipidemia, goal LDL below 70,Old ME (myocardial infarction),S/P CABG x 4,Coronary artery disease [...] Tablet Extended Release 24 Hour (toPROL XL)Indications:Old ME (myocardial infarction),S/P CABG x 4,Coronary artery disease [...] as of this encounter (statuses as of 06/21/2023) Active Problems Problem Noted Date Diagnosed Date Conductive hearing loss, bilateral 09/15/2021 Wears hearing aid 09/15/2021 Hx of actinic keratosis 12/15/2020 Hx of nonmelanoma skin cancer 12/15/2020 Stage 3a chronic kidney disease 09/15/2020 S/P CABG x 4 03/03/2020 Old [place] (myocardial infarction) 04/12/2019 Atherosclerosis of [place] co ronary artery of [place] heart with stable angina pectoris 04/11/2019 HTN, [...] update of inactive term CORONARY ATHEROSCLER. OF [place] CORONARY VESSEL documented as of this encounter (statuses as of 06/21/2023) Resolved Problems Problem Noted Date Diagnosed Date [...] as of this encounter (statuses as of 06/21/2023) Immunizations Name Administration Dates Next Due COVID-19 [...] EDT Cardiac Studies Cardiac Studies, [facility] [address] [place] [address] 11/13/2023 8:40 AM EDT Office Visit Family Practice [facility] [address] [facility] [place] [address] Misti Mora, [address] [facility] [place] [address] Scheduled Procedures Name Priority Associated Diagnoses Date/Ti [...] Additional history exists CKD HGB USE SMARTSET 77993 05/15/202405/15, 04/13/2022, 06/07/2020, Additional history exists CKD PHOS USE SMARTSET 38110 05/15/2024 05/15/2023, 0 04/13/2022 TSH 05/15/2024 05/15/2023, [...] this encounter Medical Devices Implanted Type Area Technician Trainee Device Identifier Shelf Expiration Date Model / Serial / Lot Suture Steel 6 B&S19 [id number] - [id number] Implanted:Qty: 4 on 03/02/2020 by Santos Tejeda MD at [place] [facility] [place]A: Sternum [place] : [employer] 08/23/2024 [id number] / / [id number] documented as of this encounter Advance Directives Documents on File Type Date Recorded Patient Painter And Body Mechanic Apprentice Expl anation Power of Building Principal 03/31/2020 POWER OF A TTORNEY Latest Code Status on File Code Status Date Activated Date Inactivated Comments Full Code 03/02/2020 12:00 PM 03/06/2020 3:46 PM Thi s order reflects the patients wishes and were consensually agreed upon. Care Teams Terrazzo Layer Helper Relationship Specialty Start Date End Date Misti Mora DO [address] [place] [address] PCP - General Family Medicine 04/27/16 documented as of this encounter
--- OUTSIDE RECORDS SUMMARY | 2023-07-21 15:15 | External Medical Summary | Summary of Care ---
Author Name Unknown Organization [facility] Address [address] [place] [address] Phone [phone] Care Team Providers Care [employer] Principal Name Role Phone Misti Mora DO Primary Care Provider Reason for Visit * Reason Onset Date Comments Referral 05/17/2023 Encounter Details Date Type Department Care Team (Late st Contact Info) Description 05/17/2023 Telephone Thoracic Surg [place] [address] [place] [address] Perla Gates, office workforce planner Allergies Active Allergy Reactions Criticality Noted Date Comments No Known Drug Allergy 01/07/2004 documented as of this encounter (statuses as of 05/23/2023) Medications Medication Sig Dispensed Refills Start Date [...] without history of CABG,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[place] artery of [place] heart with stable angina pectoris (HCC) PLACE [...] EVERY DAY 90 Tablet 2 09/27/2022 Active [employer] Ultra In Vitro Strip (Glucose Blood)Indications:Typ e 2 diabetes mellitus with hemoglobin A1c goal of less than 7.0% (HCC) USE TO TEST BLOOD SUGAR ONCE DAILY DIRECTED E11.9 100 Strip 3 11/20/2022 Active Metoprolol Succinate ER 25 MG Oral Tablet Extended Release 24 Hour (toPROL XL)Indications:Old [place] (myocardial infarction),S/P CABG x 4,Coronary artery disease [...] Tablet (Crestor)Indications: Dyslipidemia, goal LDL below 70,Old [place] (myocardial infarction),S/P CABG x 4,Coronary artery disease [...] as of this encounter (statuses as of 05/23/2023) Active Problems Problem Noted Date Diagnosed Date Conductive hearing loss, bilateral 09/15/2021 Wears hearing aid 09/15/2021 Hx of actinic keratosis 12/15/2020 Hx of nonmelanoma skin cancer 12/15/2020 Stage 3a chronic kidney disease 09/15/2020 S/P CABG x 4 03/03/2020 Old [place] (myocardial infarction) 04/12/2019 Atherosclerosis of [place] co ronary artery of paimi[place] heart with stable angina pectoris 04/11/2019 HTN, [...] update of inactive term CORONARY ATHEROSCLER. OF [place] CORONARY VESSEL documented as of this encounter (statuses as of 05/23/2023) Resolved Problems Problem Noted Date Diagnosed Date [...] as of this encounter (statuses as of 05/23/2023) Immunizations Name Administration Dates Next Due COVID-19 mRNA, LNP-s, No Pre serve, 2-Dose Series (Moderna) 05/25/2020,04/20/2020 COVID-19, MRNA-LNP, 23-24, P F, 50 MCG/0.5 mL, 12 YRS AND ABOVE, IM (MODERNA-Spikevax) 01/09/2023 COVID-19, mRNA, LNP-s, PF, B ooster, 100mcg/0.5mg (Moderna) 06/29/2021,01/17/2021 Covid-19, Mrna, Lnp-s, Pf, B ivalent, 50 Mcg, IM, 12 yrs and above (Moderna) 08/23/2022,12/07/2021 H1N1 2009 Influenza, IM 02/25/2009 HEP A - Hepatitis A (Adult > 18 yrs) 10/27/2002, 05/02/2002 Hepatitis B, 20+ yrs 06/30/2019,12/27/2018,11/29 Pneumococcal Conjugate Vacc, 13 Valent (Prevnar) 08/25/2014 Pneumococcal Polysaccharide PPV23 (Pneumovax) 06/15/2020,06/12/2011,04/08/2001 Season Influenza, Quad, PF, Adjuvanted, 65+ Yrs, IM (FLUAD) 12/02/2019 Seasonal Influenza, PF, 6 M & above, IM , (FluLaval or Fluzone) 12/10/2018,12/25/2017,12/25/2016 Seasonal Influenza, Quadriva lent Hd (Fluzone Hd) 12/30/2022,12/29/2021,12/06/2020 Seasonal Influenza, Quadriva lent, No Preserve, IM 01/14/2016,01/05/2015 Seasonal Influenza, Split, I IV3, With Preserve, Inj 01/05/2014,01/01/2013,12/05/2011,01/03,12/21/2009,12/25/2008,01/10/2008 ,01/04/2007,01/05/2006,01/19/2005,12/24,02/15/2001,03/15/2000, 9 TD - Tetanus/Diptheria (ADULT) 02/26/1998 TD, Preservative Free 04/01/2018 TDAP (age 11 [...] encounter Miscellaneous Notes * Telephone Encounter - Misti Mora DO - 05/17/2023 4:38 PM EST Patient showed me an article that said it used to be recommended to not screen if they quit over 15years ago, but ACS now recommends screening even if they quit a longer time ago. Have you heard anything about this? Source was an [facility] publication so I may get more of the same question. Annmarie Chappell * Telephone Encounter - Perla Gates RN - 05/17/2023 1:50 PM EST Lung Cancer Screening Program (LCSP) Referral Call Summary 05/17/2023 Outcome: The patient does not qualify because Not current or former Smoker (quit within 15 years)- no followup required and ordering provider contacted. Quit smoking in The patient has been referred by their provider to the Lung Cancer Screening Program (LCSP). The following program requirements criteria have been reviewed: Age 50-80 Current or Former Smoker (quit within 15 years) 20+ pack year No Signs of Lung Cancer Shared decision making completed Perla Gates RN Lung Cancer Screening Carroting Machine Operator documented in this encounter Plan of Treatment Upcoming Encounters Date Type Department Care Team (Late st Contact Info) Description 06/12/2023 8:00 AM EDT Office Visit Cardiology, [facility] [address] [place] [address] Andriy Vaughn MD [address] [place] [address] 11/13/2023 8:40 AM EDT Office Visit Family Practice [facility] [address] [facility] [place] [address] Misti Mora, [address] [facility] [place] [address] Scheduled Procedures Name Priority Associated Diagnoses Date/Ti [...] Additional history exists CKD HGB USE SMARTSET 45796 05/15/202405/15, 04/13/2022, 06/07/2020, Additional history exists CKD PHOS USE SMARTSET 35676 05/15/2024 05/15/2023, 0 04/13/2022 TSH 05/15/2024 05/15/2023, [...] this encounter Medical Devices Implanted Type Area Button Tufter Device Identifier Shelf Expiration Date Model / Serial / Lot Suture Steel 6 B&S19 M654g - [id number] Implanted:Qty: 4 on 03/02/2020 [place] [facility] [place] Sternum JNJ : [employer] 08/23/2024 [id number] / / [id number] documented as of this encounter Advance Directives Documents on File Type Date Recorded Patient Color Drum Worker Expl anation Power of Decision Science Analyst 03/31/2020 POWER OF A TTORNEY Latest Code Status on File Code Status Date Activated Date Inactivated Comments Full Code 03/02/2020 12:00 PM 03/06/2020 3:46 PM Thi s order reflects the patients wishes and were consensually agreed upon. Care Teams [employer] Principal Relationship Specialty Start Date End Date Misti Mora DO [address] [place] [address] PCP - General Family Medicine 04/27/16 documented as of this encounter
--- OUTSIDE RECORDS SUMMARY | 2023-07-21 15:16 | External Medical Summary | Summary of Care ---
Author Name Unknown Organization [facility] Address [address] [place] [address] Phone [phone] Care Team Providers Care Genetic Physician Name Role Phone Misti Mora DO Primary Care Provider Reason for Visit * Reason Onset Date Comments Health Maintenance 03/12/2023 Encounter Details Date Type Department Care Team (Late st Contact Info) Description 03/12/2023 Telephone Family Practice [facility] [address] [place] [address] Misti Mora DO [address] [place] [address] Health Maintenance Allergies Active Allergy Reactions Criticality Noted Date Comments No Known Drug Allergy 01/07/2004 documented as of this encounter (statuses as of 03/12/2023) Medications Medication Sig Dispensed Refills Start Date [...] as needed 30 Tab 1 06/29/2020 Active amLODIPine Besylate 2.5 MG Oral Tablet (Norvasc) TAKE 1 TABLET BY MOUTH EVERY DAY 90 Tablet 3 02/20/2022 Active Rosuvastatin Calcium 20 MG Oral Tablet (Crestor)Indications: Dyslipidemia, goal LDL below 70,Old [place] (myocardial infarction),S/P CABG x 4,Coronary artery disease with history of myocardial infarction without history of CABG TAKE 1 TABLET BY MOUTH EVERY DAY 90 Tablet 3 02/20/2022 Active Lisinopril 2.5 MG Oral Tablet (Prinivil)Indications [...] without history of CABG,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[place] artery of [place] heart with stable angina pectoris (HCC) PLACE [...] EVERY DAY 90 Tablet 2 09/27/2022 Active [employer] Ultra In Vitro Strip (Glucose Blood)Indications:Typ e 2 diabetes mellitus with hemoglobin A1c goal of less than 7.0% (HCC) USE TO TEST BLOOD SUGAR ONCE DAILY DIRECTED E11.9 100 Strip 3 11/20/2022 Active Metoprolol Succinate ER 25 MG Oral Tablet Extended Release 24 Hour (toPROL XL)Indications:Old [place] (myocardial infarction),S/P CABG x 4,Coronary artery disease with history of myocardial infarction without history of CABG TAKE 1 TABLET BY MOUTH IN THE MORNING AND 1/2 IN THE EVENING 135 Tablet 3 12/28/2022 Active Levothyroxine Sodium 75 MCG Oral Tablet (Levoxyl) TAKE 1 TABLET BY MOUTH EVERY DAY AT LEAST 30 MIN BEFORE BREAKFAST OR OTHER MEDICATION 90 Tablet 1 01/18/2023 Active documented as of this encounter (statuses as of 03/12/2023) Active Problems Problem Noted Date Diagnosed Date Conductive hearing loss, bilateral 09/15/2021 Wears hearing aid 09/15/2021 Hx of actinic keratosis 12/15/2020 Hx of nonmelanoma skin cancer 12/15/2020 Stage 3a chronic kidney disease 09/15/2020 S/P CABG x 4 03/03/2020 Old [place] (myocardial infarction) 04/12/2019 Atherosclerosis of [place] co ronary artery of [place] heart with stable angina pectoris 04/11/2019 HTN, [...] update of inactive term CORONARY ATHEROSCLER. OF [place] CORONARY VESSEL documented as of this encounter (statuses as of 03/12/2023) Resolved Problems Problem Noted Date Diagnosed Date [...] as of this encounter (statuses as of 03/12/2023) Immunizations Name Administration Dates Next Due COVID-19 [...] Date Smoking Tobacco: Former Cigarettes 1.5 24 Q uit: 01/25/1988 Smokeless Tobacco: Never Alcohol Use Standard [...] encounter Miscellaneous Notes * Telephone Encounter - Angeles Rasheed LPN - 03/12/2023 11:49 AM EST Care Gaps Comprehensive Care Outreach Last Office/Telemedicine Visit: 11/23/2022 (in office), Visit date not found (telemedicine) Next Office Visit: 06/01/2023 Hemoglobin AIC Results: Lab Results Component Value Date/Time HEMOGLOBIN A1C - [facility] 6.6 (H) 08/15/2022 07:45 AM HEMOGLOBIN A1C - [facility] 6.7 (H) 04/13/2022 09:09 AM HEMOGLOBIN A1C - [facility] 6.2 (H) 09/15/2021 08:29 AM HEMOGLOBIN A1C - [facility] 6.5 (H) 02/26/2020 01:04 PM HEMOGLOBIN A1C - [facility] 6.6 (H) 10/09/2019 07:45 AM HEMOGLOBIN A1C - [facility] 6.6 (H) 04/11/2019 07:57 AM Reviewed Health Maintenance below: Health Maintenance Topic Date Due GFR 10/11/2022 HbA1c 02/15/2023 Albumin/Creatinine Ratio 04/13/2023 CKD HGB USE SMARTSET 35231 04/13/2023 CKD PHOS USE SMARTSET 97221 04/13/2023 Diabetic Eye Exam 05/27/2023 Labs/urine Care Gap Outreach Action Taken: Left message 1 documented in this encounter Plan of Treatment Upcoming Encounters Date Type Department Care Team (Late st Contact Info) Description 06/01/2023 8:40 AM EST Office Visit Family Practice [facility] [place] [address] [place] [address] Misti Mora DO [address] [facility] [place], [place] [address] Scheduled Procedures Name Priority Associated Diagnoses Date/Ti me COLONOSCOPY FLEXIBLE PROXIMA L DIAGNOSTIC Recall History of colonic polyps Health Maintenance Due Date Last Done Comments GFR 10/11/2022 04/13/2022, 08/25, 03/22/2021, Additional history exists HbA1c 02/15/2023 08/15/2022, 03/26, 09/15/2021, Additional history exists Albumin/Creatinine Ratio 04/13/2023 023, 06/23/2021, 04/01/2018, Additional history exists CKD HGB USE SMARTSET 32518 04/13/202304/13, 06/07/2020, 05/07/2020, Additional history exists CKD PHOS USE SMARTSET 03305 04/13/2023 04/13/2022 Diabetic Eye Exam 05/27/2023 05/26/2022, , 05/25/2021, Additional history exists Depression Screening 08/09/2023 08/08/2022 Diabetic Foot Exam 08/09/2023 08/08/2022, 0 06/15/2020, 04/11/2019, Additional history exists B-12 08/16/2023 08/15/2022, 08/25, 04/11/2019, Additional history exists TSH 08/16/2023 08/15/2022, 08/25, 06/24/2021, Additional history exists COLONOSCOPY-EVERY 3 YRS AGES 18-100 09/22/2025 09/22/2022, 09/22/2022, 05/08/2012, Additional history exists DTaP,Tdap,and Td Vaccines (3 - Td or Tdap) 04/01/2028 04/01/2018, 07/10/2008, 02/26/1998 Zoster Vaccines Completed 01/23/2018, 083 03/2017, 08/05/2009 Hepatitis B Completed 06/30/2019, 1006/2018, [...] this encounter Medical Devices Implanted Type Area Clinical Resource Nurse Device Identifier Shelf Expiration Date Model / Serial / Lot Suture Steel 6 B&S19 M654g - [id number] Implanted:Qty: 4 on 03/02/2020 by Santos Tejeda MD [place] [facility] [place] Sternum JNJ : [employer] 08/23/2024 [id number] / / [id number] documented as of this encounter Advance Directives Documents on File Type Date Recorded Patient Veterinarian Helper Expl anation Power of Animal Doctor 03/31/2020 POWER OF A TTORNEY Latest Code Status on File Code Status Date Activated Date Inactivated Comments Full Code 03/02/2020 12:00 PM 03/06/2020 3:46 PM Thi s order reflects the patients wishes and were consensually agreed upon. Care Teams Genetic Physician Relationship Specialty Start Date End Date Misti Mora DO [address] [place] [address] PCP - General Family Medicine 04/27/16 documented as of this encounter
--- OUTSIDE RECORDS SUMMARY | 2023-07-21 15:16 | External Medical Summary ---
Author Name Unknown Address Unknown Organization [id number][place] [facility] [place] [address] [facility] [address] Laboratory Report Ordering Provider Test Date Status SUZI CRUZ 05/15/2023 07:44:29 Final Observation Date Value Abnormality Reference (Units ) Status HbA1C 05/15/2023 07:44:29 6.6 Above high normal 4. 0-5.6 (%) Final The use of HbA1c to monitor glycemic status is based on normal hemoglobin and HbA composition. This test should not be used in patients with abnormal hemoglobin that affects the half life of the red blood cell or the in vivo glycation rates. Glucose, estimated average 05/15/2023 07:44:29 143 Above high normal <126 (mg/dL) Antwon chavez Performing Location [facility] [place] [address] [facility] [address]
--- OUTSIDE RECORDS SUMMARY | 2023-07-21 15:16 | External Medical Summary ---
Author Name Unknown Address Unknown Organization [id number][place] [place] [address] [place] [address] Laboratory Report Ordering Provider Test Date Status SUZI CRUZ 05/15/2023 07:44:29 Final Observation Date Value Abnormality Reference (Units ) Status LDL, (direct) 05/15/2023 07:44:29 40 <=129 (mg/dL) Final LDL Cholesterol Reference Ra nges (mg/dL):
<70 Target level for high risk ASCVD patient
<100 Optimal for general population
100-129 Near optimal for general population
130-159 Borderline high
160-189 High
>=190 Very high Performing Location LABORATORY [facility] - [address] [place] [address]
--- OUTSIDE RECORDS SUMMARY | 2023-07-21 15:16 | External Medical Summary | Summary of Care ---
Author Name Unknown Organization [facility] Address [address] [place] [address] Phone [phone] Care Team Providers Care Yarn Conditioner Name Role Phone Misti Mora DO Primary Care Provider Reason for Visit * Reason Comments Outpatient Testing Encounter Details Date Type Department Care Team (Late st Contact Info) Description 05/15/2023 7:40 AM EST Laboratory Laboratory [facility] [address] [place] [address] 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 Allergies Active Allergy Reactions Criticality Noted Date Comments No Known Drug Allergy 01/07/2004 documented as of this encounter (statuses as of 05/15/2023) Medications Medication Sig Dispensed Refills Start Date [...] without history of CABG,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[place] artery of [place] heart with stable angina pectoris (HCC) PLACE [...] EVERY DAY 90 Tablet 2 09/27/2022 Active [employer] Ultra In Vitro Strip (Glucose Blood)Indications:Typ e [...] as of this encounter (statuses as of 05/15/2023) Active Problems Problem Noted Date Diagnosed Date Conductive hearing loss, bilateral 09/15/2021 Wears hearing aid 09/15/2021 Hx of actinic keratosis 12/15/2020 Hx of nonmelanoma skin cancer 12/15/2020 Stage 3a chronic kidney disease 09/15/2020 S/P CABG x 4 03/03/2020 Old [place] (myocardial infarction) 04/12/2019 Atherosclerosis of [place] co ronary artery of [place] heart with stable angina pectoris 04/11/2019 HTN, [...] update of inactive term CORONARY ATHEROSCLER. OF [place] CORONARY VESSEL documented as of this encounter (statuses as of 05/15/2023) Resolved Problems Problem Noted Date Diagnosed Date [...] as of this encounter (statuses as of 05/15/2023) Immunizations Name Administration Dates Next Due COVID-19 [...] Description 05/17/2023 10:20 AM EST Office Visit Family [facility] [address] [facility] [place] [address] Misti Mora, [address] [facility] [place] [address] 06/12/2023 8:00 AM EDT Office Visit Cardiology, [facility] [address] [place] [address] Andriy Vaughn MD [address] [place] [id number] Pending Results Name Type Priority Associated Diagnoses Date /Time BASIC METABOLIC PANEL Lab Routine Type 2 diabetes mellitus with diabetic mononeuropathy, without long-term current use of insulin ([facility]) 05/15/2023 7:44 AM EST HEMOGLOBIN A1C Lab Routine Type 2 diabetes mellitus with diabetic mononeuropathy, without long-term current use of insulin ([facility]) 05/15/2023 7:44 AM EST LIPID PANEL WITH DIRECT LDL IF TG IS HIGH Lab Routine Type 2 diabetes mellitus with diabetic mononeuropathy, without long-term current use of insulin ([facility]) 05/15/2023 7:44 AM EST TSH WITH FREE T4 IF INDICATED Lab Routine 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 05/15/2023 7:44 AM EST PROTEIN/ CREATININE RATIO, URINE Lab Routine Type 2 diabetes mellitus with diabetic mononeuropathy, without long-term current use of insulin (HCC) 05/15/2023 7:44 AM EST Scheduled Procedures Name Priority Associated Diagnoses Date/Ti me COLONOSCOPY FLEXIBLE PROXIMA L DIAGNOSTIC Recall History of colonic polyps Health Maintenance Due Date Last Done Comments GFR 10/11/2022 04/13/2022, 08/25, 03/22/2021, Additional history exists HbA1c 02/15/2023 08/15/2022, 03/26, 09/15/2021, Additional history exists Albumin/Creatinine Ratio 04/13/2023 023, 06/23/2021, 04/01/2018, Additional history exists CKD HGB USE SMARTSET 34552 04/13/202304/13, 06/07/2020, 05/07/2020, Additional history exists CKD PHOS USE SMARTSET 00661 04/13/2023 04/13/2022 Diabetic Eye Exam 05/27/2023 05/26/2022, [...] this encounter Medical Devices Implanted Type Area Research Rn Spec Device Identifier Shelf Expiration Date Model / Serial / Lot Suture Steel 6 B&S19 M654g - [id number] Implanted:Qty: 4 on 03/02/2020 [place] Te[place] [facility] [place] Sternum JN[employer] : [employer] 08/23/2024 [id number] / / [id number] documented as of this encounter Visit Diagnoses Diagnosis Type 2 diabetes mellitus with diabetic mononeuropathy, without long-term current use of insulin (HCC) 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 Care Teams Yarn Conditioner Relationship Specialty Start Date End Date Misti Mora DO [address] [place] [address] PCP - General Family Medicine 04/27/16 documented as of this encounter
--- OUTSIDE RECORDS SUMMARY | 2023-07-21 15:16 | External Medical Summary | Summary of Care ---
Author Name Unknown Organization [facility] Address [address] [place] [address] Phone [phone] Care Team Providers Care Family Consumer Science Fcs Teacher Name Role Phone Misti Mora DO Primary Care Provider Reason for Visit * Reason Onset Date Comments Referral 05/17/2023 Encounter Details Date Type Department Care Team (Late st Contact Info) Description 05/17/2023 Telephone Thoracic Surg [place] [address] [place] [address] Perla Gates, curer acid drum Allergies Active Allergy Reactions Criticality Noted Date Comments No Known Drug Allergy 01/07/2004 documented as of this encounter (statuses as of 05/17/2023) Medications Medication Sig Dispensed Refills Start Date [...] without history of CABG,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[place] artery of [place] heart with stable angina pectoris (HCC) PLACE [...] EVERY DAY 90 Tablet 2 09/27/2022 Active [employer] Ultra In Vitro Strip (Glucose Blood)Indications:Typ e 2 diabetes mellitus with hemoglobin A1c goal of less than 7.0% (HCC) USE TO TEST BLOOD SUGAR ONCE DAILY DIRECTED E11.9 100 Strip 3 11/20/2022 Active Metoprolol Succinate ER 25 MG Oral Tablet Extended Release 24 Hour (toPROL XL)Indications:Old [place] (myocardial infarction),S/P CABG x 4,Coronary artery disease [...] Tablet (Crestor)Indications: Dyslipidemia, goal LDL below 70,Old [place] (myocardial infarction),S/P CABG x 4,Coronary artery disease [...] as of this encounter (statuses as of 05/17/2023) Active Problems Problem Noted Date Diagnosed Date Conductive hearing loss, bilateral 09/15/2021 Wears hearing aid 09/15/2021 Hx of actinic keratosis 12/15/2020 Hx of nonmelanoma skin cancer 12/15/2020 Stage 3a chronic kidney disease 09/15/2020 S/P CABG x 4 03/03/2020 Old [place] (myocardial infarction) 04/12/2019 Atherosclerosis of [place]'kma[place] co ronary artery of mi'kmaq heart with stable angina pectoris 04/11/2019 HTN, [...] update of inactive term CORONARY ATHEROSCLER. OF [place] CORONARY VESSEL documented as of this encounter (statuses as of 05/17/2023) Resolved Problems Problem Noted Date Diagnosed Date [...] as of this encounter (statuses as of 05/17/2023) Immunizations Name Administration Dates Next Due COVID-19 [...] encounter Miscellaneous Notes * Telephone Encounter - Perla Gates RN [...] completed Perla Gates RN Lung Cancer Screening [place] documented in this encounter Plan of Treatment Upcoming Encounters Date Type Department Care Team (Late st Contact Info) Description 06/12/2023 8:00 AM EDT Office Visit Cardiology, [facility] [address] [place] [address] Andriy Vaughn MD [address] [place] [address] 11/15/2023 7:40 AM EDT Office Visit [facility] [address] [facility] [place] [place] [address] Misti Mora DO [address] [place] [address] Scheduled Procedures Name Priority Associated Diagnoses Date/Ti [...] Additional history exists CKD HGB USE SMARTSET 50862 05/15/202405/15, 04/13/2022, 06/07/2020, Additional history exists CKD PHOS USE SMARTSET 96231 05/15/2024 05/15/2023, 0 04/13/2022 TSH 05/15/2024 05/15/2023, [...] this encounter Medical Devices Implanted Type Area Apiculture Teacher Device Identifier Shelf Expiration Date Model / Serial / Lot Suture Steel 6 B&S19 M654g - [id number] Implanted:Qty: 4 on 03/02/2020 by Santos Tejeda MD [place] [facility] [place] Sternum JN[employer] : [employer] 08/23/2024 [id number] / / [id number] documented as of this encounter Advance Directives Documents on File Type Date Recorded Patient Box Press Operator Expl anation Power of Drive In Waiter/Waitress 03/31/2020 POWER OF A TTORNEY Latest Code Status on File Code Status Date Activated Date Inactivated Comments Full Code 03/02/2020 12:00 PM 03/06/2020 3:46 PM Thi s order reflects the patients wishes and were consensually agreed upon. Care Teams Family Consumer Science Fcs Teacher Relationship Specialty Start Date End Date Misti Mora DO [address] [place] [address] PCP - General Family Medicine 04/27/16 documented as of this encounter
--- OUTSIDE RECORDS SUMMARY | 2023-07-21 15:16 | External Medical Summary ---
Author Name Unknown Address Unknown Organization [id number]:[facility] [place] [address] Laboratory Report Ordering Provider Test Date Status SUZI CRUZ 05/15/2023 07:44:29 Final Observation Date Value Abnormality Reference (Units ) Status BUN 05/15/2023 07:44:29 17 6-20 (mg/dL) Final Creatinine 05/15/2023 07:44:29 1.3 Above high normal 0.6-1.2 (mg/dL) Final Glomerular filtration rate/1.73 sq M.predicted [Volume Rate/Area] in Serum, Plasma or Blood by Creatinine-based formula (CKD-EPI) 05/15/2023 07:44:29 59 Below low normal >=60 (mL/min) Final eGFR is calculated based on the CKD-EPI 2020 equation SODIUM 05/15/2023 07:44:29 136 135-146 (m mol/L) Final Potassium 05/15/2023 07:44:29 4.9 3.5-5.1 (m mol/L) Final Cl 05/15/2023 07:44:29 100 98-107 (mm ol/L) Final CO2 05/15/2023 07:44:29 24 22-32 (mmo l/L) Final Anion gap 05/15/2023 07:44:29 12 7-15 (mmol /L) Final Glucose 05/15/2023 07:44:29 125 Above high normal 70 -120 (mg/dL) Final Calcium 05/15/2023 07:44:29 10.2 8.4-10.2 ( mg/dL) Final Performing Location [facility] [place] [address]
--- OUTSIDE RECORDS SUMMARY | 2023-07-21 15:16 | External Medical Summary | Summary of Care ---
Author Name Unknown Organization [facility] Address [address] [place] [address] Phone [phone] Care Team Providers Care Welder First Class Name Role Phone Misti Mora DO Primary Care Provider Reason for Visit * Reason Comments Outpatient Testing Encounter Details Date Type Department Care Team (Late st Contact Info) Description 05/15/2023 7:40 AM EST Laboratory Laboratory [facility] [address] [place] [address] [facility] [address] [place] [address] Type 2 diabetes mellitus with diabetic mononeuropathy, [...] without history of CABG,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[place] artery of [place] heart with stable angina pectoris (HCC) PLACE [...] EVERY DAY 90 Tablet 2 09/27/2022 Active GrownOut Ultra In Vitro Strip (Glucose Blood)Indications:Typ e [...] Tablet (Crestor)Indications: Dyslipidemia, goal LDL below 70,Old [place] (myocardial infarction),S/P [...] [place] (myocardial infarction) 04/12/2019 Atherosclerosis of [place] co ronary artery of [place] heart with stable angina pectoris 04/11/2019 HTN, [...] update of inactive term CORONARY ATHEROSCLER. OF [place] CORONARY VESSEL documented as of this encounter [...] 05/17/2023 10:20 AM EST Office Visit Family [facility] [address] [facility] [place] [address] Misti Mora, [address] [facility] [place] [address] 06/12/2023 8:00 AM EDT Office Visit Cardiology, [facility] [address] [place] [address] Andriy Vaughn MD [address] [place] [place] [phone] Pending Results Name Type Priority Associated Diagnoses Date /Time BASIC METABOLIC PANEL Lab Routine Type 2 diabetes mellitus with diabetic mononeuropathy, without long-term current use of insulin ([facility]) 05/15/2023 7:44 AM EST HEMOGLOBIN A1C Lab Routine Type 2 diabetes mellitus with diabetic mononeuropathy, without long-term current use of insulin ([facility]) 05/15/2023 7:44 AM EST LIPID PANEL WITH DIRECT LDL IF TG IS HIGH Lab Routine Type 2 diabetes mellitus with diabetic mononeuropathy, without long-term current use of insulin ([facility]) 05/15/2023 7:44 AM EST TSH WITH FREE [...] Additional history exists CKD HGB USE SMARTSET 24221 04/13/202304/13, 06/07/2020, 05/07/2020, Additional history exists CKD PHOS USE SMARTSET 49157 04/13/2023 04/13/2022 Diabetic Eye Exam 05/27/2023 05/26/2022, [...] this encounter Medical Devices Implanted Type Area Senior Business Manager Device Identifier Shelf Expiration Date Model / Serial / Lot Suture Steel 6 B&S19 M654g - [id number] Implanted:Qty: 4 on 03/02/2020 by [place]jeda [place] [facility] [place] Sternum JN[place] : [employer] 08/23/2024 [id number] / / [id number] documented as of this encounter Visit Diagnoses Diagnosis Type 2 diabetes mellitus with diabetic mononeuropathy, without long-term current use of insulin (HCC) 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 Care Teams Welder First Class Relationship Specialty Start Date End Date Misti Mora DO [address] [place] [address] PCP - General Family Medicine 04/27/16 documented as of this encounter
--- OUTSIDE RECORDS SUMMARY | 2023-07-21 15:16 | External Medical Summary ---
Author Name Unknown Address Unknown Organization K09:[facility] [place] [address] Laboratory Report Ordering Provider Test Date Status SUZI CRUZ 05/15/2023 07:44:29 Final Observation Date Value Abnormality Reference (Units ) Status Hemoglobin 05/15/2023 07:44:29 13.8 Below low normal 14 .0-16.8 (g/dL) Final Performing Location [facility] [place] [address]
--- OUTSIDE RECORDS SUMMARY | 2023-07-21 15:16 | External Medical Summary ---
Author Name Unknown Address Unknown Organization K01:[facility] - [address] [place] [address] Laboratory Report Ordering Provider Test Date Status SUZI CRUZ 05/15/2023 07:44:29 Final Observation Date Value Abnormality Reference (Units ) Status Triglyceride 05/15/2023 07:44:29 177 Above high normal <=174 (mg/dL) Final Triglyceride Reference Range s (mg/dL):
<150 Acceptable
150-174 Borderline high
175-499 High
>=500 Very high Cholesterol 05/15/2023 07:44:29 107 <200 (mg /dL) Final Total Cholesterol Reference Ranges (mg/dL):
<200 Desirable
200-239 Borderline high
>=240 High HDL 05/15/2023 07:44:29 44 >39 (mg/dL ) Final HDL Cholesterol Reference Ra nges (mg/dL):
>=60 High (Desirable)
<50 Low (Undesirable) For Females
<40 Low (Undesirable) For Males NON-HDL CHOLESTEROL 05/15/2023 07:44:29 63 <=159 (mg/dL) Final Non-HDL Cholesterol Referenc e Range (mg/dL):
<100 Target level for high risk ASCVD patient
<130 Optimal for general population
130-159 Near optimal for general population
160-189 Borderline High
190-219 High
>=220 Very High Performing Location [facility] - [address] [place] [address]
--- OUTSIDE RECORDS SUMMARY | 2023-07-21 15:16 | External Medical Summary ---
Author Name Unknown Address Unknown Organization K01:[facility] - [address] [place] [address] Laboratory Report Ordering Provider Test Date Status SZUI CRUZ 05/15/2023 07:44:29 Final Observation Date Value Abnormality Reference (Units ) Status PSA 05/15/2023 07:44:29 0.26 <4.10 (ng/ mL) Final Performing Location [facility] - [address] [place] [address]
--- OUTSIDE RECORDS SUMMARY | 2023-07-21 15:16 | External Medical Summary ---
Author Name Unknown Address Unknown Organization K01:[facility] [place] [address] [place] [address] Laboratory Report Ordering Provider Test Date Status SUZI CRUZ 05/15/2023 07:44:29 Final Observation Date Value Abnormality Reference (Units ) Status TSH 05/15/2023 07:44:29 2.05 0.27-4.20 (uIU/mL) Final Performing Location [facility] - [address] [place] [address]
--- OUTSIDE RECORDS SUMMARY | 2023-07-21 15:16 | External Medical Summary ---
Author Name Unknown Address Unknown Organization K01:[facility] [place] - [address] [place] [address] Laboratory Report Ordering Provider Test Date Status SUZI CRUZ 05/15/2023 07:44:50 Final Normal: <150 mg/ g creatinine
High: 150-500 mg/g creatinine
Very High: >500 mg/g creatinine
Nephrotic: >3000 mg/g creatinine Observation Date Value Abnormality Reference (Units ) Status Protein/Creatinine [Ratio] in Urine 05/15/2023 07:44:50 66 <150 (mg/g ) Final Protein, Urine 05/15/2023 07:44:50 9 (mg/dL) Final Creatinine, Urine 05/15/2023 07:44:50 137 (mg/dL) Final Performing Location [facility] [place] - [address] [place] [address]
--- OUTSIDE RECORDS SUMMARY | 2023-07-21 15:16 | External Medical Summary | Summary of Care ---
Author Name Unknown Organization [facility] Address [address] [facility] [place] [address] Phone [phone] Care Team Providers Care Fixed Income Director Name Role Phone Misti Mora DO Primary Care Provider Encounter Details Date Type Department Care Team (Late st Contact Info) Description 05/14/2023 Orders Only PATIENT PORTAL DO NOT DELETE THIS DEPT USED BY [place] [address] Allergies Active Allergy Reactions Criticality Noted Date Comments No Known Drug Allergy 01/07/2004 documented as of this encounter (statuses as of 05/14/2023) Medications Medication Sig Dispensed Refills Start Date [...] without history of CABG,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[place] artery of [place] heart with stable angina pectoris (HCC) PLACE [...] EVERY DAY 90 Tablet 2 09/27/2022 Active SendUsuch Ultra In Vitro Strip (Glucose Blood)Indications:Typ e 2 diabetes mellitus with hemoglobin A1c goal of less than 7.0% (HCC) USE TO TEST BLOOD SUGAR ONCE DAILY DIRECTED E11.9 100 Strip 3 11/20/2022 Active Metoprolol Succinate ER 25 MG Oral Tablet Extended Release 24 Hour (toPROL XL)Indications:Old [place] (myocardial infarction),S/P CABG x 4,Coronary artery disease [...] Tablet (Crestor)Indications: Dyslipidemia, goal LDL below 70,Old [place] (myocardial infarction),S/P CABG x 4,Coronary artery disease [...] as of this encounter (statuses as of 05/14/2023) Active Problems Problem Noted Date Diagnosed Date Conductive hearing loss, bilateral 09/15/2021 Wears hearing aid 09/15/2021 Hx of actinic keratosis 12/15/2020 Hx of nonmelanoma skin cancer 12/15/2020 Stage 3a chronic kidney disease 09/15/2020 S/P CABG x 4 03/03/2020 Old [place] (myocardial infarction) 04/12/2019 Atherosclerosis of [place] co ronary artery of [place] heart with stable angina pectoris 04/11/2019 HTN, [...] update of inactive term CORONARY ATHEROSCLER. OF [place] CORONARY VESSEL documented as of this encounter (statuses as of 05/14/2023) Resolved Problems Problem Noted Date Diagnosed Date [...] as of this encounter (statuses as of 05/14/2023) Immunizations Name Administration Dates Next Due COVID-19 [...] 05/17/2023 10:20 AM EST Office Visit Family Practice [facility] [address] [facility] [place] [address] Misti Mora, [address] [facility] [place] [address] 06/12/2023 8:00 AM EDT Office Visit Cardiology, [facility] [address] [place] [address] Andriy Vaughn MD [address] [place] [address] Scheduled Procedures Name Priority Associated Diagnoses Date/Ti me COLONOSCOPY FLEXIBLE PROXIMA L DIAGNOSTIC Recall History of colonic polyps Health Maintenance Due Date Last Done Comments GFR 10/11/2022 04/13/2022, 08/25, 03/22/2021, Additional history exists HbA1c 02/15/2023 08/15/2022, 03/26, 09/15/2021, Additional history exists Albumin/Creatinine Ratio 04/13/2023 023, 06/23/2021, 04/01/2018, Additional history exists CKD HGB USE SMARTSET 26621 04/13/202304/13, 06/07/2020, 05/07/2020, Additional history exists CKD PHOS USE SMARTSET 98805 04/13/2023 04/13/2022 Diabetic Eye Exam 05/27/2023 05/26/2022, [...] this encounter Medical Devices Implanted Type Area Biomedical Engineer Device Identifier Shelf Expiration Date Model / Serial / Lot Suture Steel 6 B&S19 M654g - [id number] Implanted:Qty: 4 on 03/02/2020 by Santos Tejeda MD at [place] [facility] [place] N/A: Sternum JNJ : [employer] 08/23/2024 [id number] / / [id number] documented as of this encounter Advance Directives Documents on File Type Date Recorded Patient Washroom Cleaner Expl anation Power of Family Service Counselor 03/31/2020 POWER OF A TTORNEY Latest Code Status on File Code Status Date Activated Date Inactivated Comments Full Code 03/02/2020 12:00 PM 03/06/2020 3:46 PM Thi s order reflects the patients wishes and were consensually agreed upon. Care Teams Fixed Income Director Relationship Specialty Start Date End Date Misti Mora DO [address] [place] [address] PCP - General Family Medicine 04/27/16 documented as of this encounter
--- OUTSIDE RECORDS SUMMARY | 2023-07-21 15:16 | External Medical Summary | Summary of Care ---
Author Name Unknown Organization [facility] Address [address] [place] [address] Phone [phone] Care Team Providers Care Thermit Welding Machine Operator Name Role Phone Misti Mora DO Primary Care Provider Reason for Visit * Reason Comments Outpatient Testing Encounter Details Date Type Department Care Team (Late st Contact Info) Description 05/15/2023 7:40 AM EST Laboratory Laboratory [facility] [address] [place] [address] [facility] [address] [place] [address] Type 2 diabetes mellitus with diabetic mononeuropathy, [...] without history of CABG,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[place] artery of [place] heart with stable angina pectoris (HCC) PLACE [...] EVERY DAY 90 Tablet 2 09/27/2022 Active GeoVantage Ultra In Vitro Strip (Glucose Blood)Indications:Typ e 2 diabetes mellitus with hemoglobin A1c goal of less than 7.0% (HCC) USE TO TEST BLOOD SUGAR ONCE DAILY DIRECTED E11.9 100 Strip 3 11/20/2022 Active Metoprolol Succinate ER 25 MG Oral Tablet Extended Release 24 Hour (toPROL XL)Indications:Old [place] (myocardial infarction),S/P CABG x 4,Coronary artery disease [...] Tablet (Crestor)Indications: Dyslipidemia, goal LDL below 70,Old [place] (myocardial infarction),S/P CABG x 4,Coronary artery disease [...] 09/15/2020 S/P CABG x 4 03/03/2020 Old [place] (myocardial infarction) 04/12/2019 Atherosclerosis of [place] co ronary artery of [place] heart with stable angina pectoris 04/11/2019 HTN, [...] update of inactive term CORONARY ATHEROSCLER. OF [place] CORONARY VESSEL documented as of this encounter [...] 05/17/2023 10:20 AM EST Office Visit Family [facility] [address] [facility] [place] [address] Misti Mora, [address] [facility] [place] [address] 06/12/2023 8:00 AM EDT Office Visit Cardiology, [facility] [address] [address] Andriy Vaughn MD [address] [place] [phone] Pending Results Name Type Priority Associated Diagnoses Date /Time BASIC METABOLIC PANEL Lab Routine Type 2 diabetes mellitus with diabetic mononeuropathy, without long-term current use of insulin ([facility]) 05/15/2023 7:44 AM EST HEMOGLOBIN A1C Lab Routine Type 2 diabetes mellitus with diabetic mononeuropathy, without long-term current use of insulin ([facility]) 05/15/2023 7:44 AM EST LIPID PANEL WITH DIRECT LDL IF TG IS HIGH Lab Routine Type 2 diabetes mellitus with diabetic mononeuropathy, without long-term current use of insulin ([facility]) 05/15/2023 7:44 AM EST TSH WITH [...] Additional history exists CKD HGB USE SMARTSET 66705 04/13/202304/13, 06/07/2020, 05/07/2020, Additional history exists CKD PHOS USE SMARTSET 38650 04/13/2023 04/13/2022 Diabetic Eye Exam 05/27/2023 05/26/2022, [...] this encounter Medical Devices Implanted Type Area Transition Of Care Specialist Device Identifier Shelf Expiration Date Model / Serial / Lot Suture Steel 6 B&S19 M654g - [id number] Implanted:Qty: 4 on 03/02/2020 by Santos Tejeda MD at [place] [facility] [place]/A: Sternum JN[place] : [employer] 08/23/2024 M654G / / [id number] documented as of this encounter Visit Diagnoses Diagnosis Type 2 diabetes mellitus with diabetic mononeuropathy, without long-term current use of insulin (HCC) 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 Care Teams Thermit Welding Machine Operator Relationship Specialty Start Date End Date Misti Mora DO [address] [place] [address] PCP - General Family Medicine 04/27/16 documented as of this encounter
--- OUTSIDE RECORDS SUMMARY | 2023-07-21 15:16 | External Medical Summary | Summary of Care ---
Author Name Unknown Organization [facility] Address [address] [place] [address] Phone [phone] Care Team Providers Care Contract Management Specialist Name Role Phone Misti Mora DO Primary Care Provider Reason for Visit * Reason Onset Date Comments Referral 05/17/2023 Encounter Details Date Type Department Care Team (Late st Contact Info) Description 05/17/2023 Telephone Thoracic Surg [place] [address] [place] [address] Perla Gates, owner operator Allergies Active Allergy Reactions Criticality Noted Date Comments No Known Drug Allergy 01/07/2004 documented as of this encounter (statuses as of 05/18/2023) Medications Medication Sig Dispensed Refills Start Date [...] without history of CABG,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[place] artery of [place] heart with stable angina pectoris (HCC) PLACE [...] EVERY DAY 90 Tablet 2 09/27/2022 Active Tapstreamuch Ultra In Vitro Strip (Glucose Blood)Indications:Typ e 2 diabetes mellitus with hemoglobin A1c goal of less than 7.0% (HCC) USE TO TEST BLOOD SUGAR ONCE DAILY DIRECTED E11.9 100 Strip 3 11/20/2022 Active Metoprolol Succinate ER 25 MG Oral Tablet Extended Release 24 Hour (toPROL XL)Indications:Old [place] (myocardial infarction),S/P CABG x 4,Coronary artery disease [...] Tablet (Crestor)Indications: Dyslipidemia, goal LDL below 70,Old [place] (myocardial infarction),S/P CABG x 4,Coronary artery disease [...] as of this encounter (statuses as of 05/18/2023) Active Problems Problem Noted Date Diagnosed Date Conductive hearing loss, bilateral 09/15/2021 Wears hearing aid 09/15/2021 Hx of actinic keratosis 12/15/2020 Hx of nonmelanoma skin cancer 12/15/2020 Stage 3a chronic kidney disease 09/15/2020 S/P CABG x 4 03/03/2020 Old [place] (myocardial infarction) 04/12/2019 Atherosclerosis of [place] co ronary artery of [place] heart with stable angina pectoris 04/11/2019 HTN, [...] update of inactive term CORONARY ATHEROSCLER. OF [place] CORONARY VESSEL documented as of this encounter (statuses as of 05/18/2023) Resolved Problems Problem Noted Date Diagnosed Date [...] as of this encounter (statuses as of 05/18/2023) Immunizations Name Administration Dates Next Due COVID-19 [...] completed Perla Gates RN Lung Cancer Screening Last Trimmer documented in this encounter Plan of Treatment Upcoming Encounters Date Type Department Care Team (Late st Contact Info) Description 06/12/2023 8:00 AM EDT Office Visit Cardiology, [facility] [address] [place] [address] Andriy Vaughn MD [address] [place] [address] 11/13/2023 8:40 AM EDT Office Visit Family Practice [facility] [address] [facility] [place] [address] Misti Mora, [address] [facility] [place] [address] Scheduled Procedures Name Priority Associated Diagnoses Date/Ti [...] Additional history exists CKD HGB USE SMARTSET 97292 05/15/202405/15, 04/13/2022, 06/07/2020, Additional history exists CKD PHOS USE SMARTSET 78595 05/15/2024 05/15/2023, 0 04/13/2022 TSH 05/15/2024 05/15/2023, [...] this encounter Medical Devices Implanted Type Area Com Writer Device Identifier Shelf Expiration Date Model / Serial / Lot Suture Steel 6 B&S19 M654g - [id number] Implanted:Qty: 4 on 03/02/2020 by Santos Tejeda MD at [place] [facility] [place] N/A: Sternum JN[place] : [employer] 08/23/2024 M654G / / [id number] documented as of this encounter Advance Directives Documents on File Type Date Recorded Patient Instructional Systems Design Consultant Expl anation Power of Block Layer 03/31/2020 POWER OF A TTORNEY Latest Code Status on File Code Status Date Activated Date Inactivated Comments Full Code 03/02/2020 12:00 PM 03/06/2020 3:46 PM Thi s order reflects the patients wishes and were consensually agreed upon. Care Teams Contract Management Specialist Relationship Specialty Start Date End Date Misti Mora DO [address] [place] [address] PCP - General Family Medicine 04/27/16 documented as of this encounter
--- OUTSIDE RECORDS SUMMARY | 2023-07-21 15:16 | External Medical Summary | Summary of Care ---
Author Name Unknown Organization [facility] Address [address] [place] [address] Phone [phone] Care Team Providers Care Armor Reconnaissance Vehicle Crewman Name Role Phone Misti Mora DO Primary Care Provider Reason for Visit * Reason Comments eRx-Medication Refill Encounter Details Date Type Department Care Team (Late st Contact Info) Description 04/18/2023 Refill Cardiology, [facility] [address] [place] [phone] Misti Mora DO [address] [place] [address] Dyslipidemia, goal LDL below 70; Old [place] (myocardial infarction); S/P CABG x 4; Coronary artery disease with history of myocardial infarction without history of CABG Allergies Active Allergy Reactions Criticality Noted Date Comments No Known Drug Allergy 01/07/2004 documented as of this encounter (statuses as of 04/18/2023) Medications Medication Sig Dispensed Refills Start Date [...] without history of CABG,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[place] artery of [place] heart with stable angina pectoris (HCC) PLACE [...] EVERY DAY 90 Tablet 2 3 Active Outcomes [employer]orporatedTouch Ultra In Vitro Strip (Glucose Blood)Indications:Ty pe 2 diabetes mellitus with hemoglobin A1c goal of less than 7.0% (HCC) USE TO TEST BLOOD SUGAR ONCE DAILY DIRECTED E11.9 100 Strip 3 3 Active Metoprolol Succinate ER 25 MG Oral Tablet Extended Release 24 Hour (toPROL XL)Indications:Old [place] (myocardial infarction),S/P CABG x 4,Coronary artery disease with history of myocardial infarction without history of CABG TAKE 1 TABLET BY MOUTH IN THE MORNING AND 1/2 IN THE EVENING 135 Tablet 3 3 Active Levothyroxine Sodium 75 MCG Oral Tablet (Levoxyl) TAKE 1 TABLET BY MOUTH EVERY DAY AT LEAST 30 MIN BEFORE BREAKFAST OR OTHER MEDICATION 90 Tablet 1 3 Active Rosuvastatin Calcium 20 MG Oral Tablet (Crestor)Indications :Dyslipidemia, goal LDL below 70,Old [place] (myocardial infarction),S/P CABG x 4,Coronary artery disease [...] BY MOUTH EVERY DAY 90 Tablet 3 2 04/18/19 24 Discontinued Rosuvastatin Calcium 20 MG Oral Tablet (Crestor)Indications :Dyslipidemia, goal LDL below 70,Old [place] (myocardial infarction),S/P CABG x 4,Coronary artery disease with history of myocardial infarction without history of CABG TAKE 1 TABLET BY MOUTH EVERY DAY 90 Tablet 3 2 04/18/19 24 Discontinued documented as of this encounter (statuses as of 04/18/2023) Active Problems Problem Noted Date Diagnosed Date Conductive hearing loss, bilateral 09/15/2021 Wears hearing aid 09/15/2021 Hx of actinic keratosis 12/15/2020 Hx of nonmelanoma skin cancer 12/15/2020 Stage 3a chronic kidney disease 09/15/2020 S/P CABG x 4 03/03/2020 Old [place] (myocardial infarction) 04/12/2019 Atherosclerosis of [place] co ronary artery of [place] heart with stable angina pectoris 04/11/2019 HTN, [...] update of inactive term CORONARY ATHEROSCLER. OF [place] CORONARY VESSEL documented as of this encounter (statuses as of 04/18/2023) Resolved Problems Problem Noted Date Diagnosed Date Resolved Date Unspecified severe protein-c alorie malnutrition 06/23/2021 09/15/2021 Prediabetes 10/04/2020 08/08/2022 Overview: Per Prediabetes protocol Postoperative anemia due to acute blood loss 06/15/2020 Paroxysmal atrial fibrillation 04/11/2019 05/06/2020 Type [...] as of this encounter (statuses as of 04/18/2023) Immunizations Name Administration Dates Next Due COVID-19 [...] encounter Miscellaneous Notes * Telephone Encounter - Alexandrea Elkins CRNP - 04/18/2023 9:31 AM EST Signed Prescriptions: Disp Refills Rosuvastatin Calcium 20 MG Oral Tablet (Cr*90 Tab*3 Sig: TAKE 1 TABLET BY MOUTH EVERY DAY Authorizing Provider: ALEXANDREA ELKINS amLODIPine Besylate 2.5 MG Oral Tablet (No*90 Tab*3 Sig: TAKE 1 TABLET BY MOUTH EVERY DAY Authorizing Provider: ALEXANDREA ELKINS * Telephone Encounter - Arabella Carreno COT - 04/18/2023 8:56 AM ESTPending Prescriptions: Disp Refills Rosuvastatin Calcium 20 MG Oral Tablet (Cr*90 Tab*3 Sig: TAKE 1 TABLET BY MOUTH EVERY DAY amLODIPine Besylate 2.5 MG Oral Tablet (No*90 Tab*3 Sig: TAKE 1 TABLET BY MOUTH EVERY DAY * Telephone Encounter - Arabella Carreno COT - 04/18/2023 8:55 AM EST Did you pend patient's preferred pharmacy and medication before forwarding?yes Pharmacy: [facility] [id number] [place] [address] [facility] Pending Prescriptions: Disp Refills Rosuvastatin Calcium 20 MG Oral Tablet (C*90 Tab*3 Sig: TAKE 1 TABLET BY MOUTH EVERY DAY amLODIPine Besylate 2.5 MG Oral Tablet (N*90 Tab*3 Sig: TAKE 1 TABLET BY MOUTH EVERY DAY Last Visit: 07/24/2022 (in office), Visit date not found (telemedicine) Next Visit: Visit date not found If no future appointments scheduled, and last appointment is greater than a year ago, please schedule patient for a follow-up appointment Last date the medication was ordered: 02-20-2022 Is this request for a controlled substance?No Urine Drug Screen:No results found for this or any previous visit. Patient Phone Numbers Labs: Lab Results Component Value Date/Time CREAT 1.2 04/13/2022 09:09 AM CREAT 1.4 (H) 04/07/2020 08:30 AM POTASSIUM 4.5 04/13/2022 09:09 AM POTASSIUM 4.8 04/07/2020 08:30 AM POTASSIUM 4.2 02/27/1996 01:35 PM TSH 1.00 08/15/2022 07:45 AM TSH 2.13 02/26/2020 01:04 PM LDLCALC 36 09/15/2021 08:29 AM LDLCALC 59 04/01/2018 08:52 AM LDLDIRECT 44 08/15/2022 07:45 AM LDLDIRECT 68 04/11/2019 07:57 AM LDLDIRECT 63 01/10/2008 08:25 AM ALT 20 09/15/2021 08:29 AM ALT 20 02/26/2020 01:04 PM HGBA1C 6.6 (H) 08/15/2022 07:45 AM HGBA1C 6.5 (H) 02/26/2020 01:04 PM documented in this encounter Plan of Treatment Upcoming Encounters Date Type Department Care Team (Late st Contact Info) Description 06/01/2023 8:40 AM EST Office Visit [facility] [place] [address] [place] [address] Misti Mora DO [address] [place] [address] Scheduled Procedures Name Priority Associated Diagnoses Date/Ti me COLONOSCOPY FLEXIBLE PROXIMA L DIAGNOSTIC Recall History of colonic polyps Health Maintenance Due Date Last Done Comments GFR 10/11/2022 04/13/2022, 08/25, 03/22/2021, Additional history exists HbA1c 02/15/2023 08/15/2022, 03/26, 09/15/2021, Additional history exists Albumin/Creatinine Ratio 04/13/2023 023, 06/23/2021, 04/01/2018, Additional history exists CKD HGB USE SMARTSET 42970 04/13/202304/13, 06/07/2020, 05/07/2020, Additional history exists CKD PHOS USE SMARTSET 39066 04/13/2023 04/13/2022 Diabetic Eye Exam 05/27/2023 05/26/2022, [...] this encounter Medical Devices Implanted Type Area Keyboarding Teacher Device Identifier Shelf Expiration Date Model / Serial / Lot Suture Steel 6 B&S19 M654g - [id number] Implanted:Qty: 4 on 03/02/2020 by Santos Tejeda MD at [place] [facility] [place] N/A: Sternum JN[place] : [employer] 08/23/2024 [id number] / / [id number] documented as of this encounter Visit Diagnoses Diagnosis Dyslipidemia, goal LDL below 70 Other and unspecified hyperlipidemia Old AL (myocardial infarction) Old myocardial infarction S/P CABG x 4 Postsurgical aortocoronary bypass status Coronary artery disease with history of myocardial infarction without history of CABG Coronary atherosclerosis of [place] coronary artery documented in this encounter Advance Directives Documents on File Type Date Recorded Patient Retail Business Manager Expl anation Power of Spaghetti Machine Operator 03/31/2020 POWER OF A TTORNEY Latest Code Status on File Code Status Date Activated Date Inactivated Comments Full Code 03/02/2020 12:00 PM 03/06/2020 3:46 PM Thi s order reflects the patients wishes and were consensually agreed upon. Care Teams Armor Reconnaissance Vehicle Crewman Relationship Specialty Start Date End Date Misti Mora DO [address] [place] [address] PCP - General Family Medicine 04/27/16 documented as of this encounter
--- OUTSIDE RECORDS SUMMARY | 2023-07-21 15:16 | External Medical Summary | Summary of Care ---
Author Name Unknown Organization [facility] Address [address] [place] [address] Phone [phone] Care Team Providers Care Box Toe Maker Name Role Phone Misti Mora DO Primary Care Provider Reason for Visit * Reason Onset Date Comments Referral 05/17/2023 Encounter Details Date Type Department Care Team (Late st Contact Info) Description 05/17/2023 Telephone Thoracic Surg [place] [address] [place] [address] Perla Gates, smart energy specialist Allergies Active Allergy Reactions Criticality Noted Date [...] without history of CABG,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[place] artery of [place] heart with stable angina pectoris (HCC) PLACE [...] EVERY DAY 90 Tablet 2 09/27/2022 Active SY[employer] Corporationuch Ultra In Vitro Strip (Glucose Blood)Indications:Typ e 2 diabetes mellitus with hemoglobin A1c goal of less than 7.0% (HCC) USE TO TEST BLOOD SUGAR ONCE DAILY DIRECTED E11.9 100 Strip 3 11/20/2022 Active Metoprolol Succinate ER 25 MG Oral Tablet Extended Release 24 Hour (toPROL XL)Indications:Old [place] (myocardial infarction),S/P CABG x 4,Coronary artery disease [...] Tablet (Crestor)Indications: Dyslipidemia, goal LDL below 70,Old [place] (myocardial infarction),S/P CABG x 4,Coronary artery disease [...] 09/15/2020 S/P CABG x 4 03/03/2020 Old [place] (myocardial infarction) 04/12/2019 Atherosclerosis of [place] co ronary artery of [place] heart with stable angina pectoris 04/11/2019 HTN, [...] update of inactive term CORONARY ATHEROSCLER. OF [place] CORONARY VESSEL documented as of this encounter [...] anything about this? [facility] so I may get [...] completed Perla Gates RN Lung Cancer Screening Instrument Calibrator documented in this encounter Plan of Treatment Upcoming Encounters Date Type Department Care Team (Late st Contact Info) Description 06/12/2023 8:00 AM EDT Office Visit Cardiology, [facility] [address] [place] [address] Andriy Vaughn MD [address] [place] [address] 11/15/2023 7:40 AM EDT Office Visit Family Practice [facility] [address] [facility] [place] [address] Misti Mora, [address] [place] [address] Scheduled Procedures Name Priority Associated Diagnoses Date/Ti [...] Additional history exists CKD HGB USE SMARTSET 11895 05/15/202405/15, 04/13/2022, 06/07/2020, Additional history exists CKD PHOS USE SMARTSET 42953 05/15/2024 05/15/2023, 0 04/13/2022 TSH 05/15/2024 05/15/2023, [...] this encounter Medical Devices Implanted Type Area Light Rail Train Operator Device Identifier Shelf Expiration Date Model / Serial / Lot Suture Steel 6 B&S19 M654g - [id number] Implanted:Qty: 4 on 03/02/2020 [place] [facility] [place]A: Sternum J[place] : [employer] 08/23/2024 [id number] / / [id number] documented as of this encounter Advance Directives Documents on File Type Date Recorded Patient Box Car Washer Expl anation Power of Public Policy Manager 03/31/2020 POWER OF A TTORNEY Latest Code Status on File Code Status Date Activated Date Inactivated Comments Full Code 03/02/2020 12:00 PM 03/06/2020 3:46 PM Thi s order reflects the patients wishes and were consensually agreed upon. Care Teams Box Toe Maker Relationship Specialty Start Date End Date Misti Mora DO [address] [place] [address] PCP - General Family Medicine 04/27/16 documented as of this encounter
--- OUTSIDE RECORDS SUMMARY | 2023-07-21 15:17 | External Medical Summary | Summary of Care ---
Author Name Unknown Organization [facility] Address [address] [place] [address] Phone [phone] Care Team Providers Care Business Performance Manager Name Role Phone Misti Mora DO Primary Care Provider Reason for Visit * Reason Onset Date Comments Light treatment Blue Light Procedure 01/29/2023 Encounter Details Date Type Department Care Team (Late st Contact Info) Description 01/29/2023 9:00 AM EST Nurse Only Dermatology [facility] [address] [place] [address] Sp, Nurse Dermatology [address] [facility] [place] [address] Light treatment (Blue Light); Procedure Allergies Active Allergy Reactions Criticality Noted Date Comments No Known Drug Allergy 01/07/2004 documented as of this encounter (statuses as of 01/29/2023) Medications Medication Sig Dispensed Refills Start Date [...] Tablet (Crestor)Indications: Dyslipidemia, goal LDL below 70,Old [place] (myocardial infarction),S/P CABG x 4,Coronary artery disease [...] without history of CABG,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[place] artery of [place] heart with stable angina pectoris (HCC) [...] Tablet Extended Release 24 Hour (toPROL XL)Indications:Old [place] (myocardial infarction),S/P CABG x 4,Coronary artery disease with history of myocardial infarction without history of CABG TAKE 1 TABLET BY MOUTH IN THE MORNING AND 1/2 IN THE EVENING 135 Tablet 3 12/28/2022 Active Levothyroxine Sodium 75 MCG Oral Tablet (Levoxyl) TAKE 1 TABLET BY MOUTH EVERY DAY AT LEAST 30 MIN BEFORE BREAKFAST OR OTHER MEDICATION 90 Tablet 1 01/18/2023 Active Hospital, Clinic, or Other Facility Administered Medication Ordered Dose Route Frequency Start Date End Date Status aminolevulinic acid (Levulan Kerastick) 20 % solutionIndications:Actinic keratosis TOP ONCE 01/29/2023 01/29/2023 Ended documented as of this encounter (statuses as of 01/29/2023) Active Problems Problem Noted Date Diagnosed Date Conductive hearing loss, bilateral 09/15/2021 Wears hearing aid 09/15/2021 Hx of actinic keratosis 12/15/2020 Hx of nonmelanoma skin cancer 12/15/2020 Stage 3a chronic kidney disease 09/15/2020 S/P CABG x 4 03/03/2020 Old [place] (myocardial infarction) 04/12/2019 Atherosclerosis of [place] co ronary artery of [place] heart with stable angina pectoris 04/11/2019 [...] update of inactive term CORONARY ATHEROSCLER. OF [place] CORONARY VESSEL documented as of this encounter (statuses as of 01/29/2023) Resolved Problems Problem Noted Date Diagnosed Date [...] as of this encounter (statuses as of 01/29/2023) Immunizations Name Administration Dates Next Due COVID-19 [...] (Prevnar) 08/25/2014 Pneumococcal Polysaccharide PPV23 (Pneumovax) 06/15/2020,06/12/2011 SEASONAL INFLUENZA, PF, 6 M & Above, IM , (FLULAVAL or FLUZONE) 12/10/2018,12/25/2017,12/25/2016 Season Influenza, Quad, PF, Adjuvanted, 65+ Yrs, IM (FLUAD) 12/02/2019 Seasonal Influenza, Quadriva lent Hd (Fluzone Hd) [...] or making decisions? (5 years old or older No 03/02/2020 documented as of this encounter Nursing Notes * Demetra Lock LPN - 01/29/2023 8:59 AM EST Photodynamic therapy explained to the patient, verbal consent obtained, and then Aminolevulinic acid hcl 354mg via Kerastick applied to face and scalp. Patient waited one hour in patient room and then after the skin was washed was exposed to COLTEN-U light for 1000 seconds with fan for cooling. Post op course explained and advised to stay out of the sun for 48 hours due to continue sensitivity. Demetra Lock LPN 01/29/2023 9:00 AM documented in this encounter Plan of Treatment Upcoming Encounters Date Type Department Care Team (Late st Contact Info) Description 06/01/2023 8:40 AM EST Office Visit [facility] [address] [place] [address] Misti Mora DO [address] [place] [address] Scheduled Orders Name Type Priority Associated Diagnoses Orde r Schedule PHOTODYNAMIC TX, SKIN Procedures Routine Actinic keratosis Ordered: 01/29/2023 Scheduled Procedures Name Priority Associated Diagnoses Date/Ti me COLONOSCOPY FLEXIBLE PROXIMA L DIAGNOSTIC Recall History of colonic polyps Health Maintenance Due Date Last Done Comments Diabetic Eye Exam 05/27/2021 05/27/2020, , 05/27/2020, Additional history exists GFR 10/11/2022 04/13/2022, 08/25, 03/22/2021, Additional history exists HbA1c 02/15/2023 08/15/2022, 03/26, 09/15/2021, Additional history exists Albumin/Creatinine Ratio 04/13/2023 023, 06/23/2021, 04/01/2018, Additional history exists CKD HGB USE SMARTSET 14830 04/13/202304/13, 06/07/2020, 05/07/2020, Additional history exists CKD PHOS USE SMARTSET 05120 04/13/2023 04/13/2022 Depression Screening 08/09/2023 08/08/2022 Diabetic Foot Exam 08/09/2023 08/08/2022, 0 06/15/2020, 04/11/2019, Additional history exists B-12 08/16/2023 08/15/2022, 08/25, 04/11/2019, Additional history exists TSH 08/16/2023 08/15/2022, 08/25, 06/24/2021, Additional history exists COLONOSCOPY-EVERY 3 YRS AGES 18-100 09/22/2025 09/22/2022, 09/22/2022, 05/08/2012, Additional history exists DTaP,Tdap,and Td Vaccines (3 - Td or Tdap) 04/01/2028 04/01/2018, 07/10/2008, 02/26/1998 Zoster Vaccines Completed 01/23/2018, 0803/2017, 08/05/2009 Hepatitis B Completed 06/30/2019, 06/2018, 11/29/2018 [...] this encounter Medical Devices Implanted Type Area Nut Blanker Operator Device Identifier Shelf Expiration Date Model / Serial / Lot Suture Steel 6 B&S19 M654g - [id number] Implanted:Qty: 4 on 03/02/2020 by [place] Tejeda [place] [facility] [place]/A: Sternum JN[place] : [employer] 08/23/2024 [id number] / / [id number] documented as of this encounter Visit Diagnoses Diagnosis Actinic keratosis- Primary documented in this encounter Administered Medications Inactive Administered Medications - up to 3 most recent administrations Medication Order MAR Action Action Date Dose Rate Site aminolevulinic acid (Levulan Kerastick) 20 % solution Topical, ONCE, On 01/29/23 at 0945, For 1 dose, Derm visit Given 01/29/2023 9:19 AM EST 1 Each documented in this encounter Advance Directives Documents on File Type Date Recorded Patient Scrap Metal Processing Worker Expl anation Power of Artist Agent 03/31/2020 POWER OF A TTORNEY Latest Code Status on File Code Status Date Activated Date Inactivated Comments Full Code 03/02/2020 12:00 PM 03/06/2020 3:46 PM Thi s order reflects the patients wishes and were consensually agreed upon. Care Teams Business Performance Manager Relationship Specialty Start Date End Date Misti Mora DO [facility] [place] [address] [address] PCP - General Family Medicine 04/27/16 documented as of this encounter
[2023-07-22] MEDS: amLODIPine BESYLATE 5 MG TAB PO SCH (08:17)
[2023-07-22] MEDS: lisinopril 2.5 MG TAB PO SCH (08:18)
--- NOTE | 2023-07-22 10:03 | Discharge Summary ---
Date of Service July 22, 2023 Admission HPI Per Admitting Provider This is a 78-year-old male with PMHx of CAD, HTN, HLD, DM II, hx of Hashimotos disease, CKD stage 3, hypothyroidism, former smoker who presents to the hospital with acute urinary complaints including foul-smelling urine, increased frequency, dysuria fever x 2 days and weakness x 2 days. He is found to have a white count of 21,000, UA appears to be grossly infected. Patient was started on IV cefepime and fluids in the ER. The patient's significant other, Keke, is present at bedside and supports the history. He believes that he developed symptoms 3 days ago which started with a bout of diarrhea x 3 episodes, then noticed that he was having increased urinary frequency, dysuria and foul-smelling urine which has progressively worsened in the past 3 days. He admits to having a low-grade fever of 99.8 and has not taken any Tylenol or other fever reducing medications. He denies any abdominal pain. Patient does feel generalized weakness which was worse this morning, causing him to have difficulty walking at home. Denies any falls or injuries sustained. He has never had a urinary tract infection before. Patient notes that he does not drink a lot of water, drinks a small glass of soda and 2 cups of coffee per day. He was instructed previously by his PCP that he needed to increase his fluid intake. He denies any dizziness, lightheadedness, chest pain, palpitations or shortness of breath. He did miss all of his morning medications today as his appetite has been diminished. Denies any nausea or vomiting. Admission Exam Per Admitting Provider General: awake, alert, no apparent distress, elderly white male, + slightly tremulous Head: Normocephalic, atraumatic ENT: PERRL, EOMI, no pharyngeal exudate, + mucous membranes slightly dry Chest: Clear to auscultation, on room air, no adventitious breath sounds Cardiac: Regular rate and rhythm, heart rate in mid 80s, no murmur, no JVD, normal peripheral pulses, good capillary refill Abdominal: NABS x 4 quadrants, soft, nondistended, nontender to palpation, no rebound or guarding Extremities: Normal inspection, no peripheral edema or erythema, calfs nontender to palpation Psych: Normal mood and affect Neuro: AAO x 3, strength intact bilaterally and rated 5/5, no motor deficits, speech is clear, no peripheral sensory deficits Principal Diagnosis Urine tract infection Discharge Exam Constitutional: WD/WN, vitals as above, NAD, sitting up in bed, pleasant, conve rsing easily Respiratory: normal respiratory effort, lungs clear to auscultation, no wheeze, rales, rhonchi. Normal insp/exp effort, no accessory muscle use Cardiovascular: RRR, no murmur, no edema Vessels: no JVD or carotid bruit Chest: normal inspection of chest Abdomen: normal bowel sounds, soft, nontender, no hepatosplenomegaly Musculoskeletal: no cyanosis or clubbing, extremities motor strength 5/5 Skin: no rashes, warm and dry normal turgor Neurologic: PERRL, EOMI, accommodation nl, no face palsy, no dysarthria CN's II- XI intact bilaterally and moves all extremities Psychiatric: A+Ox3, euthymic affect Discharge Data Allergies Allergy/AdvReac Type Severity Reaction Status Date / Time No Known Allergies Allergy Unverified 09/03/19 10:06 Consultations 07/20/23 14:43 ED Decision to Admit Stat Ordered Studies 07/21/23 07:38 US Renal Bladder [US renal/blad retro comp] Routine Hospital Course (1) Sepsis: (2) UTI (urinary tract infection): (3) Leukocytosis: (4) CAD (coronary artery disease): (5) DM II (diabetes mellitus, type II), controlled: (6) Hypothyroidism: -Patient presented to the hospital with burning sensation while urination and generalized weakness. -Leukocytosis present on admission -Urine appears infected -RVP negative, -Chest x-ray personally reviewed; no acute finding. Urine cultureno growth Blood cultureno growth in 24 hours Renal ultrasound-irregularly thickened bladder wall, moderate renal cortical thickening. During the hospitalization, patient was started on empiric antibiotic for UTI. Leukocytosis improved on repeat evaluation. Patient reported improvement in the symptoms of the UTI with antibiotics. He also reported improvement in the weakness; was able to get out of bed and walk on the hallways. Even though the urine culture did not grow any organism; given patient's symptom improvement with antibotics; decision was made to treat the UTI with oral antibiotics at discharge. Discussed with patient that if he has continued fever chills, difficulty with urination; he will need to seek medical evaluation. I also discussed possible referral to urology if he has any issues related with bladder outlet obstruction. He verbalized understanding. He was discharged home with instruction to follow-up with his PCP. Please note the above document was generated using voice recognition software. It may contain grammatical, syntax or spelling errors. Any formal questions or concerns about the content, text or information contained within the body of this dictation should be directly addressed to the provider for clarification Total Time Total Time Spent Total Time Spent (In Minutes): 35 Total Time Includes: Examination of the Patient, Discharge Planning, Medication Reconciliation, Communication With Other Providers and Other Discharge Plan Discharge Items Patient Disposition: Home - Self-Care Reason For Visit: UTI, SEPSIS Discharge Diagnosis: Urine tract infection Activity: Resume your previous activity Non-emergency contact: Primary Care Provider Call non-emergency contact if: you have any medication questions and your symptoms worsen Follow-up/Referrals: Misti Mora, [Primary Care Provider] - Diet: Regular Addtl Attending Provider Instructions: You were admitted to the hospital for concern of UTI. The urine culture and blood culture did not grow any organism. You are prescribed ciprofloxacin(antibiotics) to be taken twice daily for 6 more days to complete the antibiotic course. An appointment with your primary care doctor will be made for sometime this week. Please follow-up with them. Pending Studies at Discharge: No Stand-Alone Forms: [facility], Smoking Cess[facility] Medications and DC Order Prescriptions: New ciprofloxacin HCl 500 mg tablet 500 mg PO BID 6 Days Qty: 12 0RF Continued Aspirin Enteric Coated (Ecotrin Or Generic *) 81 MG ENTERIC COATED TAB 81 mg PO QAM Qty: 0 Metoprolol Tartrate (Lopressor) (Lopressor) 25 MG tablet 25 mg PO QPM Qty: 0 CHOLECALCIFEROL (Vitamin D) 1,000 INTER.UNIT tablet 5,000 inter.unit PO QPM Qty: 0 FOLIC ACID (FOLVITE) 1 MG tablet 1 tab PO QAM 90 Days Qty: 90 levothyroxine 75 mcg tablet 75 mcg PO DAILY isosorbide mononitrate 60 mg tablet extended release 24 hr 60 mg PO QAM metoprolol succinate 25 mg tablet extended release 24 hr 12.5 mg PO QAM metformin 500 mg tablet extended release 24 hr 500 mg PO QAM lisinopril 2.5 mg tablet 2.5 mg PO QAM rosuvastatin 20 mg tablet 20 mg PO DAILY amlodipine 2.5 mg tablet 2.5 mg PO DAILY famotidine 20 mg Tablet 20 mg PO DAILY PRN (Reason: Indigestion) Co Q-10 75 mg Capsule 75 mg PO DAILY Discharge Orders: Discharge Order (Routine); Ordered 07/22/23 Ordered By: Fantasma Can Admission Data Admit Date/Time: 07/20/23 15:21 Attending Provider: Fantasma Can Admit Provider: Heydi Weston Primary Care Provider: Misti Mora Other Providers: Heydi Weston
== END 2023-07-22 10:30 | disposition home or self-care (01) | DRG 872 ==
LOC: ED 11:38 → SUATTDRO 15:21 → EDINP 15:21 → 2N 21:21
DX: A41.9 Sepsis, unspecified organism; E03.9 Hypothyroidism, unspecified; Z79.890 Hormone replacement therapy; N18.30 Chronic kidney disease, stage 3 unspecified; N39.0 Urinary tract infection, site not specified; E11.65 Type 2 diabetes mellitus with hyperglycemia; Z95.1 Presence of aortocoronary bypass graft; Z87.891 Personal history of nicotine dependence; Z79.84 Long term (current) use of oral hypoglycemic drugs; E11.22 Type 2 diabetes mellitus with diabetic chronic kidney disease; I12.9 Hypertensive chronic kidney disease with stage 1 through stage 4 chronic kidney disease, or unspecified chronic kidney disease; Z79.82 Long term (current) use of aspirin; I25.2 Old myocardial infarction; I25.10 Atherosclerotic heart disease of native coronary artery without angina pectoris